=== PATIENT | male | born 1970 | race Caucasian/White ===

== ENCOUNTER 2019-04-14 14:02 | Inpatient (IN) | payer OTHER ==
[2019-04-14 16:53] VITALS: BMI 31.8
--- NOTE | 2019-04-14 17:49 | HP ---
<Linda Mccurdy - Last Filed: 04/14/19 19:31> CIWA Score Nausea/Vomitin Muscle Tremors: 1-None Visible, but [place] Anxiety: 0-No Anxiety, at Ease Agitation: 0-Normal Activity Paroxysmal Sweats: No Perspiration Orientation: 0-Oriented Tacttile Disturbances: 0-None Auditory Disturbances: 0-None Visual Disturbances: 0-None Headache: 2-Mild CIWA-Ar Total Score: 5 - Admission Criteria OASAS Guidelines: Admission for Medically Managed Detox: Requires at least one of the followin. CIWA greater than 12 2. Seizures within the past 24 hours 3. Delirium tremens within the past 24 hours 4. Hallucinations within the past 24 hours 5. Acute intervention needed for co occurring medical disorder 6. Acute intervention needed for co occurring psychiatric disorder 7. Severe withdrawal that cannot be handled at a lower level of care (continued vomiting, continued diarrhea, abnormal vital signs) requiring intravenous medication and/or fluids 8. Admitting History and Physical - Primary Care Physician PCP: none - Admission Chief Complaint: alcohol detox/ rehab History of Present Illness: Pt is a 49 yo man with pmhx of anxiety who presents for inpatient rehab for alcohol missuse. Pt reports he was drinking heavily in a restaurant and EMS got called. The pt states he was breathing very shallow and the restaurant workers became concerned. States he has been drinking heavily for the past 1- 1.5wks, started last Friday. Pt states he is consuming mixed drinks, white wine , and beer. He states hes having ~1L at a time. Pt states he is going into restaurants or bars and drinking alone. Pt states hes currently unemployed and has been working on recovery for the past year but has had some relapses. Pt reports his father/ family live in [place] and send him money. The patient came to [place] in April to be closer to his children and ex-. He has been staying in group home residential recovery programs, most recently at [facility], discharged last Friday and immediately went out drinking. Pt reports he has never had a seizure while withdrawing but he does become weak, tremulous, feverish with chills. He states he has been binging and blacking out this week and is also drinking immediately upon waking. History Source: Patient Limitations to Obtaining History: No Limitations - Smoking History Smoking history: Never smoked - Alcohol/Substance Use Hx Alcohol Use: Yes Admission ROS BHS - HPI Allergies/Adverse Reactions: Allergies Allergy/AdvReac Type Severity Reaction Status Date / Time No Known Allergies Allergy Verified 04/14/19 16:43 - Ebola screening Have you traveled outside of the country in the last 21 days: No (NN) Have you had contact with anyone from an Ebola affected area: No Do you have a fever: No - Review of Systems Constitutional: Chills, Fever EENT: denies: Eye Pain, Ear Pain, Hearing Loss, Throat Pain Respiratory: denies: Cough, Orthopnea, Shortness of Breath Cardiac: denies: Chest Pain, Lightheadedness, Palpitations GI: reports: Nausea, Vomiting (vomited once early this morning). denies: Constipated, Diarrhea : reports: Other (pt reports his urine is very dark in color with a strong smell). denies: Burning Musculoskeletal: reports: Back Pain (low back pain) Integumentary: reports: No Symptoms Reported Neuro: denies: Headache, Numbness, Tingling Endocrine: denies: Excessive Sweating, Flushing Hematology: denies: Blood Clots, Easy Bleeding Psychiatric: reports: Depressed. denies: Agitated, Anxious Other Systems: Reviewed and Negative Patient History - Patient Medical History Hx Anemia: No Hx Asthma: No Hx Chronic Obstructive Pulmonary Disease (COPD): No Hx Cancer: No Hx Cardiac Disorders: No Hx Congestive Heart Failure: No Hx Hypertension: No Hx Hypercholesterolemia: No Hx Pacemaker: No HX Cerebrovascular Accident: No Hx Seizures: No Hx Dementia: No Hx Diabetes: No Hx Gastrointestinal Disorders: No Hx Liver Disease: No Hx Genitourinary Disorders: No Hx Sexually Transmitted Disorders: No Hx Renal Disease (ESRD): No Hx Thyroid Disease: No Hx Human Immunodeficiency Virus (HIV): No (last 03/02 ) Hx Hepatitis C: No Hx Depression: No Hx Suicide Attempt: No Hx Bipolar Disorder: No Hx Schizophrenia: No - Patient Surgical History Past Surgical History: No - PPD History Date: 08/14/15 - Smoking Cessation Smoking history: Never smoked - Substances abused Alcohol Frequency: 1-3 times last 30 days Amount used: 1 to 1 and half liters of vodka/beer/wine Age of first use: 23 Date of last use: 04/13/19 Admission Physical Exam S - Vital Signs Vital Signs: Vital Signs - 24 hr 12/18/19 12/18/19 16:42 17:10 Temperature 98.1 F 98.1 F Pulse Rate 81 81 Respiratory 18 Rate Blood Pressure 130/85 130/85 - Physical General Appearance: Yes: Nourished, Appropriately Dressed, Mild Distress HEENTM: Yes: Within Normal Limits, EOMI, Normocephalic, Pharynx Normal Respiratory: Yes: Within Normal Limits, Lungs Clear, Normal Breath Sounds, No Respiratory Distress, No Accessory Muscle Use Neck: Yes: Within Normal Limits, Supple, Trachea in good position Cardiology: Yes: Within Normal Limits, Regular Rhythm, S1, S2, Tachycardia Abdominal: Yes: Within Normal Limits, Normal Bowel Sounds, Non Tender, Soft Back: Yes: Within Normal Limits, Normal Inspection. No: CVA Tenderness, Vertebral Tenderness Extremities: Yes: Within Normal Limits, Normal Capillary Refill, Tremors (mild tremors with arms outstretched), Erythema (palmar erythema) Neurological: Yes: Within Normal Limits, security public safety officer II-XII NML intact, Fully Oriented, Motor Strength 5/5, Normal Mood/Affect Integumentary: Yes: Within Normal Limits, Normal Color, Dry, Warm Lymphatic: Yes: Within Normal Limits Cleared for Admission S - Detox or Rehab [facility] Level of Care: Medically Managed Breathalyzer - Breathalyzer Breathalyzer: 0.062 Urine Drug Screen - Test Device Lot number: [id number] Expiration date: 11/25/20 - Control Is test valid?: Yes - Results Drug screen NEGATIVE: No Urine drug screen results: BZO-Benzodiazepines Inpatient Rehab Admission - Rehab Decision to Admit Inpatient rehab admission?: Yes - Initial Determination Are CD services needed?: Yes Free of communicable disease: Yes Not in need of hospitalization: Yes - Rehab Admission Criteria Previous failed treatment: Yes Poor recovery environment: Yes Comorbidities: No Lacks judgement: Yes Patient is meeting Inpatient Rehab admission criteria:: Yes <Gustavo Gamble - Last Filed: 04/14/19 20:20> CIWA Score Nausea/Vomitin Muscle Tremors: 1-None Visible, but [place] Anxiety: 2 Agitation: 1-Slight > Activity Paroxysmal Sweats: 1-Minimal Palms Moist Orientation: 0-Oriented Tacttile Disturbances: 1-Very Mild Itch/Numbness Auditory Disturbances: 0-None Visual Disturbances: 0-None Headache: 2-Mild CIWA-Ar Total Score: 10 - Admission Criteria OASAS Guidelines: Admission for Medically Managed Detox: Requires at least one of the followin. CIWA greater than 12 2. Seizures within the past 24 hours 3. Delirium tremens within the past 24 hours 4. Hallucinations within the past 24 hours 5. Acute intervention needed for co occurring medical disorder 6. Acute intervention needed for co occurring psychiatric disorder 7. Severe withdrawal that cannot be handled at a lower level of care (continued vomiting, continued diarrhea, abnormal vital signs) requiring intravenous medication and/or fluids 8. Admitting History and Physical - Admission History Source: Patient Limitations to Obtaining History: No Limitations - Past Medical History Psych: Yes: Anxiety Musculoskeletal: Yes: Chronic low back pain - Past Surgical History Past Surgical History: Yes: None - Smoking History Smoking history: Never smoked - Alcohol/Substance Use Hx Alcohol Use: Yes Number of Drinks Daily: 1 - Social History Usual Living Arrangement: Yes: Alone Admission ROS BHS - HPI Exam Limitations: No Limitations - Ebola screening Have you traveled outside of the country in the last 21 days: No Have you had contact with anyone from an Ebola affected area: No Have you been sick,other than usual withdrawal symptoms: No Do you have a fever: No - Review of Systems Other Systems: Reviewed and Negative Patient History - Patient Surgical History Past Surgical History: No - PPD History Previous Implant?: Yes Implanted On Prior [facility] Admission?: No PPD to be Administered?: Yes - Reproductive History Patient is a Female of Child Bearing Age (11 -55 yrs old): No - Smoking Cessation Smoking history: Never smoked - Substance & Tx. History Hx Alcohol Use: Yes Hx Substance Use: No Substance Use Type: Alcohol Hx Substance Use Treatment: Yes - Substances abused Alcohol Substance route: Oral Frequency: Daily Admission Physical Exam S - Vital Signs Vital Signs: Vital Signs - 24 hr 04/14/19 04/14/19 16:42 17:10 Temperature 98.1 F 98.1 F Pulse Rate 81 81 Respiratory 18 Rate Blood Pressure 130/85 130/85 - Physical Musculoskeletal: Yes: Muscle Pain - Diagnostic (1) Alcohol dependence with uncomplicated withdrawal Current Visit: Yes Status: Chronic (2) Depression Current Visit: Yes Status: Chronic Qualifiers: Major depression episode severity: mild (3) Syncope Current Visit: No Status: Acute Cleared for Admission BHS - Detox or Rehab [facility] Level of Care: Medically Managed
[2019-04-14] MEDS ORDERED: MAGNESIUM CITRATE 300 ML BOTTLE PO PRN (18:26)
[2019-04-14] MEDS ORDERED: METHOCARBAMOL 500 MG TABLET PO PRN (18:26)
[2019-04-14] MEDS ORDERED: MAGNESIUM HYDROX 2400MG/30ML ORAL SUSPENSION 30 ML CUP PO PRN (18:26)
[2019-04-14] MEDS ORDERED: IBUPROFEN 400 MG TABLET (FP) PO PRN (18:26)
[2019-04-14] MEDS ORDERED: hydrOXYzine PAMOATE 25 MG CAPSULE (FP) PO PRN (18:26)
[2019-04-14] MEDS ORDERED: BISMUTH SUBSALICYLATE 524 MG/30 ML UD PO PRN (18:26)
[2019-04-14] MEDS ORDERED: ACETAMINOPHEN 325 MG TABLET (FP) PO PRN ×2 (18:26)
[2019-04-14] MEDS ORDERED: MELATONIN 5 MG TABLETS PO PRN (18:26)
[2019-04-14] MEDS ORDERED: MENTHOL/PHENOL 1 EACH UD MM PRN (18:26)
[2019-04-14] MEDS ORDERED: MAG HYDROX/AL HYDROX/SIMETH 30 ML UNIT-DOSE CUP PO PRN (18:26)
[2019-04-14] MEDS: chlordiazePOXIDE HCL 10 MG CAPSULE PO PRN (19:23)
--- NOTE | 2019-04-14 20:22 | PN ---
S Progress Note Note: I have examined and evaluated this pt ,; case has been discussed and reviewed with the pgy1. I agree with her findingds and treatment plan.
[2019-04-14] MEDS ORDERED: GABAPENTIN 300 MG CAPSULE (FP) PO SCH (22:00)
[2019-04-14] MEDS: THIAMINE HCL 100 MG TABLET (FP) PO SCH (22:37)
[2019-04-14] MEDS: chlordiazePOXIDE HCL 25 MG CAPSULE PO SCH (22:37)
[2019-04-15] MEDS: chlordiazePOXIDE HCL 25 MG CAPSULE PO SCH ×3 (06:46→22:05)
[2019-04-15 09:50] LABS: HEMATOCRIT 41.5 % (35.4-49); HEMOGLOBIN 13.9 GM/dL (11.7-16.9); MCH 29.8 pg (25.7-33.7); MCHC 33.5 g/dl (32.0-35.9); MEAN PLT VOLUME 8.5 fl (7.5-11.1); PLATELET COUNT 267 K/MM3 (134-434); RBC 4.66 M/mm3 (4.00-5.60); WHITE BLOOD COUNT 4.6 K/mm3 (4.0-10.0)
[2019-04-15] MEDS: PRENATAL VITAMINS W/ FOLIC ACID TABLET (FP) PO SCH (09:50)
[2019-04-15 10:05] LABS: ALBUMIN 3.8 g/dl (3.4-5.0); BILIRUBIN,TOTAL 1.4 mg/dL (0.2-1); BLOOD UREA NITROGEN 9.8 mg/dL (7-18); CALCIUM 8.6 mg/dL (8.5-10.1); CREATININE 0.8 mg/dL (0.55-1.3); POTASSIUM 4.2 mmol/L (3.5-5.1)
--- NOTE | 2019-04-15 11:22 | PN ---
[facility] CIWA - CIWA Score Nausea/Vomitin-Mild Nausea/No Vomiting Muscle Tremors: 2 Anxiety: 3 Agitation: 3 Paroxysmal Sweats: No Perspiration Orientation: 0-Oriented Tacttile Disturbances: 1-Very Mild Itch/Numbness Auditory Disturbances: 0-None Visual Disturbances: 0-None Headache: 1-Very Mild CIWA-Ar Total Score: 11 S Progress Note (SOAP) Subjective: alert,irritable,anxious,interrupted sleep,pain in the body,nausea Objective: 04/15/19 11:24 Vital Signs Temperature 97.7 F 04/15/19 09:46 Pulse Rate 99 H 04/15/19 09:46 Respiratory Rate 18 04/15/19 09:46 Blood Pressure 156/93 04/15/19 09:46 O2 Sat by Pulse Oximetry (%) Laboratory Last Values WBC 4.6 K/mm3 (4.0-10.0) 04/15/19 08:00 RBC 4.66 M/mm3 (4.00-5.60) 04/15/19 08:00 Hgb 13.9 GM/dL (11.7-16.9) 04/15/19 08:00 Hct 41.5 % (35.4-49) 04/15/19 08:00 MCV 89.0 fl (80-96) 04/15/19 08:00 MCH 29.8 pg (25.7-33.7) 04/15/19 08:00 MCHC 33.5 g/dl (32.0-35.9) 04/15/19 08:00 RDW 15.0 % (11.9-15.9) D 04/15/19 08:00 Plt Count 267 K/MM3 (134-434) 04/15/19 08:00 MPV 8.5 fl (7.5-11.1) 04/15/19 08:00 Sodium 139 mmol/L (136-145) 04/15/19 08:00 Potassium 4.2 mmol/L (3.5-5.1) 04/15/19 08:00 Chloride 103 mmol/L (98-107) 04/15/19 08:00 Carbon Dioxide 30 mmol/L (21-32) 04/15/19 08:00 Anion Gap 6 MMOL/L (8-16) L 04/15/19 08:00 BUN 9.8 mg/dL (7-18) 04/15/19 08:00 Creatinine 0.8 mg/dL (0.55-1.3) 04/15/19 08:00 Est GFR (CKD-EPI)AfAm 123.29 04/15/19 08:00 Est GFR (CKD-EPI)NonAf 106.38 04/15/19 08:00 Random Glucose 86 mg/dL (74-106) 04/15/19 08:00 Calcium 8.6 mg/dL (8.5-10.1) 04/15/19 08:00 Total Bilirubin 1.4 mg/dL (0.2-1) H 04/15/19 08:00 AST 34 U/L (15-37) 04/15/19 08:00 ALT 47 U/L (13-61) 04/15/19 08:00 Alkaline Phosphatase 60 U/L (45-117) 04/15/19 08:00 Total Protein 7.0 g/dl (6.4-8.2) 04/15/19 08:00 Albumin 3.8 g/dl (3.4-5.0) 04/15/19 08:00 04/15/19 11:25 rpr pending Assessment: 04/15/19 11:25 withdrawal symptom Plan: continue detox librium regimen,patient stated he has been on gabapentine 600 mgs po tid last taken 10 days ago,unable to verify the dose,agrre to start gabapentin 300 mgs po tid
[2019-04-15] MEDS: GABAPENTIN 300 MG CAPSULE (FP) PO SCH ×2 (14:26→22:05)
[2019-04-15] MEDS: THIAMINE HCL 100 MG TABLET (FP) PO SCH (22:05)
[2019-04-16] MEDS: chlordiazePOXIDE 5 MG CAPSULE PO SCH ×3 (06:28→21:55)
[2019-04-16] MEDS: GABAPENTIN 300 MG CAPSULE (FP) PO SCH ×3 (06:28→22:15)
[2019-04-16] MEDS: PRENATAL VITAMINS W/ FOLIC ACID TABLET (FP) PO SCH (10:19)
--- NOTE | 2019-04-16 11:23 | PN ---
S CIWA - CIWA Score Nausea/Vomitin-No Nausea/No Vomiting Muscle Tremors: 3 Anxiety: 2 Agitation: 3 Paroxysmal Sweats: 2 Orientation: 0-Oriented Tacttile Disturbances: 0-None Auditory Disturbances: 0-None Visual Disturbances: 0-None Headache: 0-None Present CIWA-Ar Total Score: 10 BHS Progress Note (SOAP) Subjective: feeling a bit better shakes sweats Objective: 04/16/19 11:22 Vital Signs Temperature 96.9 F L 04/16/19 09:35 Pulse Rate 95 H 04/16/19 09:35 Respiratory Rate 18 04/16/19 09:35 Blood Pressure 148/89 04/16/19 09:35 O2 Sat by Pulse Oximetry (%) Laboratory Tests 04/15/19 04/15/19 04/15/19 08:00 08:00 08:00 WBC 4.6 RBC 4.66 Hgb 13.9 Hct 41.5 MCV 89.0 MCH 29.8 MCHC 33.5 RDW 15.0 D Plt Count 267 MPV 8.5 Sodium 139 Potassium 4.2 Chloride 103 Carbon Dioxide 30 Anion Gap 6 L BUN 9.8 Creatinine 0.8 Est GFR (CKD-EPI)AfAm 123.29 Est GFR (CKD-EPI)NonAf 106.38 Random Glucose 86 Calcium 8.6 Total Bilirubin 1.4 H AST 34 ALT 47 Alkaline Phosphatase 60 Total Protein 7.0 Albumin 3.8 RPR Titer Nonreactive aaox3 ambulating no acute distress Assessment: 04/16/19 11:23 withdrawals Plan: continue detox increase fluids
[2019-04-16] MEDS: chlordiazePOXIDE HCL 10 MG CAPSULE PO PRN (15:12)
[2019-04-16] MEDS: THIAMINE HCL 100 MG TABLET (FP) PO SCH (22:15)
[2019-04-17] MEDS ORDERED: chlordiazePOXIDE HCL 10 MG CAPSULE PO PRN
[2019-04-17] MEDS: chlordiazePOXIDE HCL 10 MG CAPSULE PO SCH ×3 (06:52→22:33)
[2019-04-17] MEDS: GABAPENTIN 300 MG CAPSULE (FP) PO SCH ×2 (06:52→13:42)
[2019-04-17] MEDS: PRENATAL VITAMINS W/ FOLIC ACID TABLET (FP) PO SCH (10:33)
--- NOTE | 2019-04-17 14:07 | PN ---
S CIWA - CIWA Score Nausea/Vomitin Muscle Tremors: 4-Moderate,w/Arms Extend Anxiety: 4-Mod. Anxious/Guarded Agitation: 4-Moderately Restless Paroxysmal Sweats: 1-Minimal Palms Moist Orientation: 0-Oriented Tacttile Disturbances: 0-None Auditory Disturbances: 0-None Visual Disturbances: 0-None Headache: 0-None Present CIWA-Ar Total Score: 15 BHS Progress Note (SOAP) Subjective: here for alcohol detox. pt states he feels anxiety- wants to see MH- was on neurotin 1800mg/day- now getting 900mg/day O: Vital Signs - 24 hr 04/16/19 04/16/19 04/16/19 14:04 18:17 20:57 Temperature 97.0 F L 97.2 F L 97.3 F L Pulse Rate 91 H 93 H 85 Respiratory 18 18 18 Rate Blood Pressure 143/95 145/85 133/88 04/17/19 04/17/19 04/17/19 00:30 03:30 07:17 Temperature 97.5 F L Pulse Rate 76 Respiratory 18 18 18 Rate Blood Pressure 128/75 04/17/19 09:47 Temperature 97.1 F L Pulse Rate 85 Respiratory 18 Rate Blood Pressure 140/96 Laboratory Tests 04/15/19 04/15/19 04/15/19 08:00 08:00 08:00 WBC 4.6 RBC 4.66 Hgb 13.9 Hct 41.5 MCV 89.0 MCH 29.8 MCHC 33.5 RDW 15.0 D Plt Count 267 MPV 8.5 Sodium 139 Potassium 4.2 Chloride 103 Carbon Dioxide 30 Anion Gap 6 L BUN 9.8 Creatinine 0.8 Est GFR (CKD-EPI)AfAm 123.29 Est GFR (CKD-EPI)NonAf 106.38 Random Glucose 86 Calcium 8.6 Total Bilirubin 1.4 H AST 34 ALT 47 Alkaline Phosphatase 60 Total Protein 7.0 Albumin 3.8 RPR Titer Nonreactive a/p: AUD- continue alcohol detox anxiety- pt was on neurontin 600mg TID, will increase from 300mg TID to 400mg TID- would like to be seen by for treatment of OCD d/c tomorrow- pt would like to go to rehab
[2019-04-17] MEDS: GABAPENTIN 400 MG CAPSULE (FP) PO SCH ×2 (14:52→22:33)
[2019-04-17] MEDS: THIAMINE HCL 100 MG TABLET (FP) PO SCH (22:33)
[2019-04-18] MEDS ORDERED: chlordiazePOXIDE HCL 10 MG CAPSULE PO ONE (05:00)
[2019-04-18] MEDS: GABAPENTIN 400 MG CAPSULE (FP) PO SCH (06:47)
--- NOTE | 2019-04-18 08:38 | CONSULT ---
[facility] Psychiatric Consult - Data Date of interview: 04/18/19 Admission source: [facility] Identifying data: Patient is a 49 year old male, , father of two, unemployed, homeless, and is supported by medicaid benefits. This is one of multiple admissions for patient. Patient admitted to for alcohol dependence. Substance Abuse History: Smoking Cessation. Smoking history: Never smoked. - Substances abused. Alcohol. Frequency: 1-3 times last 30 days. Amount used : 1 to 1 and half liters of vodka/beer/wine. Age of first use: 23. Date of last use: 04/13/19 Medical History: denies. Psychiatric History: Mr. Silverio reports history of multiple psychiatric hospitalizations secondary to alcohol intoxication after reporting suicidal thoughts ( [facility]). Patient also reports multiple admissions to [facility]abs [facility], most recently at [facility] two weeks ago. States the only psychotropic medications he receives when admitted to rehab facilities is gabapentin 600mg TID for his anxiety. Patient denies history of suicide attempt. At present he reports feeling anxious. Physical/Sexual Abuse/Trauma History: denies. Mental Status Exam - Mental Status Exam Alert and Oriented to: Time, Place, Person Cognitive Function: Good Patient Appearance: Well Groomed Mood: Withdrawn Affect: Appropriate Patient Behavior: Appropriate, Cooperative Speech Pattern: Appropriate Voice Loudness: Normal Thought Process: Goal Oriented Thought Disorder: Not Present Hallucinations: Denies Suicidal Ideation: Denies Homicidal Ideation: Denies Insight/Judgement: Poor Sleep: Fair Appetite: Fair Muscle strength/Tone: Normal Gait/Station: Normal Psychiatric Findings - Problem List ([place] 1, 2,3) (1) Alcohol dependence with uncomplicated withdrawal Current Visit: Yes Status: Acute (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 Rehab in progress. Will order Gabapentin 600mg TID. Benefits and side effects discussed. Verbal consent given.
[2019-04-18] MEDS: PRENATAL VITAMINS W/ FOLIC ACID TABLET (FP) PO SCH (10:36)
--- NOTE | 2019-04-18 12:00 | PN ---
S CIWA - CIWA Score Nausea/Vomitin-No Nausea/No Vomiting Muscle Tremors: None Anxiety: 4-Mod. Anxious/Guarded Agitation: 0-Normal Activity Paroxysmal Sweats: 2 Orientation: 0-Oriented Tacttile Disturbances: 0-None Auditory Disturbances: 0-None Visual Disturbances: 0-None Headache: 0-None Present CIWA-Ar Total Score: 6 BHS Progress Note (SOAP) Subjective: c/o anxiety and mild sweats. Objective: 04/18/19 11:56 Vital Signs 04/18/19 04/18/19 06:11 10:06 Temperature 97.5 F L 97.7 F Pulse Rate 67 90 Respiratory 18 18 Rate Blood Pressure 114/73 137/89 Laboratory Last Values WBC 4.6 K/mm3 (4.0-10.0) 04/15/19 08:00 RBC 4.66 M/mm3 (4.00-5.60) 04/15/19 08:00 Hgb 13.9 GM/dL (11.7-16.9) 04/15/19 08:00 Hct 41.5 % (35.4-49) 04/15/19 08:00 MCV 89.0 fl (80-96) 04/15/19 08:00 MCH 29.8 pg (25.7-33.7) 04/15/19 08:00 MCHC 33.5 g/dl (32.0-35.9) 04/15/19 08:00 RDW 15.0 % (11.9-15.9) D 04/15/19 08:00 Plt Count 267 K/MM3 (134-434) 04/15/19 08:00 MPV 8.5 fl (7.5-11.1) 04/15/19 08:00 Sodium 139 mmol/L (136-145) 04/15/19 08:00 Potassium 4.2 mmol/L (3.5-5.1) 04/15/19 08:00 Chloride 103 mmol/L (98-107) 04/15/19 08:00 Carbon Dioxide 30 mmol/L (21-32) 04/15/19 08:00 Anion Gap 6 MMOL/L (8-16) L 04/15/19 08:00 BUN 9.8 mg/dL (7-18) 04/15/19 08:00 Creatinine 0.8 mg/dL (0.55-1.3) 04/15/19 08:00 Est GFR (CKD-EPI)AfAm 123.29 04/15/19 08:00 Est GFR (CKD-EPI)NonAf 106.38 04/15/19 08:00 Random Glucose 86 mg/dL (74-106) 04/15/19 08:00 Calcium 8.6 mg/dL (8.5-10.1) 04/15/19 08:00 Total Bilirubin 1.4 mg/dL (0.2-1) H 04/15/19 08:00 AST 34 U/L (15-37) 04/15/19 08:00 ALT 47 U/L (13-61) 04/15/19 08:00 Alkaline Phosphatase 60 U/L (45-117) 04/15/19 08:00 Total Protein 7.0 g/dl (6.4-8.2) 04/15/19 08:00 Albumin 3.8 g/dl (3.4-5.0) 04/15/19 08:00 RPR Titer Nonreactive (NONREACTIVE) 04/15/19 08:00 Labs noted. Assessment: 04/18/19 11:56 AOX3, in no acute respiratory distress. Full ROM, ambulating in the unit. Withdrawal symptoms Pt has completed his detox protocol but still c/o anxiousness. harmonic analyst evaluated pt and started him on gabapentin. (refer to harmonic analyst's notes). Pt is to be discharged to rehab but will keep him one more day to be managed medically and be discharged to the rehab tomorrow. 04/18/19 12:01 Plan: continue vistaril po prn/other prn medications. Start gabapentin as recommended by research neuropsychologist.
[2019-04-18] MEDS: GABAPENTIN 300 MG CAPSULE (FP) PO SCH ×2 (13:37→22:34)
[2019-04-18] MEDS: THIAMINE HCL 100 MG TABLET (FP) PO SCH (22:35)
[2019-04-19] MEDS: GABAPENTIN 300 MG CAPSULE (FP) PO SCH ×2 (05:46→14:33)
--- NOTE | 2019-04-19 09:06 | DS ---
[facility] Detox Discharge Summary Admission Date: 04/14/19 Discharge Date: 04/19/19 - History Present History: Alcohol Dependence - Physical Exam Results Vital Signs: Vital Signs Temperature 97.3 F L 04/19/19 05:25 Pulse Rate 68 04/19/19 05:25 Respiratory Rate 20 04/19/19 05:25 Blood Pressure 106/76 04/19/19 05:25 O2 Sat by Pulse Oximetry (%) Pertinent Admission Physical Exam Findings: Vital Signs Period Temp Pulse Resp BP Sys/[place]ilton Pulse Ox Last 24 Hr 97.3 F-98.1 F 68-97 16- 106-146/76-94 Laboratory Tests 04/15/19 04/15/19 04/15/19 08:00 08:00 08:00 WBC 4.6 RBC 4.66 Hgb 13.9 Hct 41.5 MCV 89.0 MCH 29.8 MCHC 33.5 RDW 15.0 D Plt Count 267 MPV 8.5 Sodium 139 Potassium 4.2 Chloride 103 Carbon Dioxide 30 Anion Gap 6 L BUN 9.8 Creatinine 0.8 Est GFR (CKD-EPI)AfAm 123.29 Est GFR (CKD-EPI)NonAf 106.38 Random Glucose 86 Calcium 8.6 Total Bilirubin 1.4 H AST 34 ALT 47 Alkaline Phosphatase 60 Total Protein 7.0 Albumin 3.8 RPR Titer Nonreactive aaox3 ambulating no acute distress - Treatment Hospital Course: Detox Protocol Followed, Detoxed Safely, Responded well, Discharged Condition Good, Rehab Referral Accepted Patient has Accepted a Rehab Referral to: pt referred to [facility] inpatient rehab - Medication Discharge Medications: Ambulatory Orders Gabapentin 1 tablet PO TID 04/14/19 - Diagnosis (1) Alcohol dependence with uncomplicated withdrawal Current Visit: Yes Status: Chronic (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
[2019-04-19] MEDS: PRENATAL VITAMINS W/ FOLIC ACID TABLET (FP) PO SCH (09:36)
[2019-04-19 13:27] VITALS: BP 133/82; PULSE 110; TEMP 97.9
== END 2019-04-19 14:37 | disposition other institution (70) | DRG 775 ==
LOC: YASAS 14:02 → Y6N 18:48
PROVIDERS: ADMIT Allergy & Immunology; ATTEND Allergy & Immunology
PROC: HZ2ZZZZ Detoxification Services for Substance Abuse Treatment (ICD-10-PCS; principal; 2019-04-14)
DX: F10.230 Alcohol dependence with withdrawal, uncomplicated (principal); F10.280 Alcohol dependence with alcohol-induced anxiety disorder; F10.24 Alcohol dependence with alcohol-induced mood disorder; F10.282 Alcohol dependence with alcohol-induced sleep disorder; R00.0 Tachycardia, unspecified; Z56.0 Unemployment, unspecified
CPT/HCPCS: 36415; 80053; 85027; 86593

== ENCOUNTER 2019-04-19 15:01 | Inpatient (IN) | payer OTHER ==
[2019-04-19] MEDS ORDERED: LOPERAMIDE HCL 2 MG CAPSULE PO PRN (15:42)
[2019-04-19] MEDS ORDERED: MAG HYDROX/AL HYDROX/SIMETH 30 ML UNIT-DOSE CUP PO PRN (15:42)
[2019-04-19] MEDS ORDERED: P-EPHED 60MG/TRIPROLIDI 2.5MG TABLET PO PRN (15:42)
[2019-04-19] MEDS ORDERED: MENTHOL/PHENOL 1 EACH UD MM PRN (15:42)
[2019-04-19] MEDS ORDERED: hydrOXYzine PAMOATE 25 MG CAPSULE (FP) PO PRN (15:42)
[2019-04-19] MEDS ORDERED: MAGNESIUM CITRATE 300 ML BOTTLE PO PRN (15:42)
[2019-04-19] MEDS ORDERED: ACETAMINOPHEN 325 MG TABLET (FP) PO PRN (15:42)
[2019-04-19] MEDS ORDERED: guaiFENesin 200 MG/10 ML 10 ML UNIT-DOSE CUPS PO PRN (15:42)
[2019-04-19] MEDS ORDERED: MAGNESIUM HYDROX 2400MG/30ML ORAL SUSPENSION 30 ML CUP PO PRN (15:42)
--- NOTE | 2019-04-19 15:42 | HP ---
[facility] Rehab Assess/Revision - Admission History Admitted to Rehab from: [facility] Date of Admission to Rehab: 04/19/2019 - Vital signs Vital Signs: Vital Signs Period Temp Pulse Resp BP Sys/Hilton Pulse Ox Last 24 Hr 98.5 F 86 18 119/69 - Findings Detox History & Physical reviewed: Yes Concur with findings: Yes Inpatient Rehab Admission - Rehab Decision to Admit Inpatient rehab admission?: Yes - Initial Determination Are CD services needed?: Yes Free of communicable disease: Yes Not in need of hospitalization: Yes - Rehab Admission Criteria Previous failed treatment: Yes Poor recovery environment: Yes Comorbidities: Yes Lacks judgement: No Patient is meeting Inpatient Rehab admission criteria:: Yes
--- NOTE | 2019-04-19 16:11 | PN ---
[facility] Progress Note Note: Patient transferred to [address] [place], [place] [address]ab for alcohol dependence. Labs reviewed. Will repeat CMP on 04/23/19. Previous admission in 2016 reviewed. Patient has hx of OCD and treated with gabapentin. Vital Signs Temperature 98.5 F 04/19/19 15:09 Pulse Rate 86 04/19/19 15:09 Respiratory Rate 18 04/19/19 15:09 Blood Pressure 119/69 04/19/19 15:09 O2 Sat by Pulse Oximetry (%)
--- NOTE | 2019-04-19 16:57 | CONSULT ---
[facility] Psychiatric Consult - Data Date of interview: 04/19/19 Admission source: [facility] Identifying data: Transition to [address] for this 49 y/o male who sought rehabilitative care after completion of detoxification (alcohol ) at [address] [place] [address]. Patient is , a father of two, homeless, unemployed and supported by relatives. Substance Abuse History: Discussed with the patient. Details in current [facility] report as follows : Smoking history: Never smoked. Substances abused. Alcohol. Frequency: 1-3 times last 30 days. Amount used: 1 to 1 and half liters of vodka/beer/wine. Age of first use: 23. Date of last use: 04/13/19 Medical History: Patient endorses good general health. Psychiatric History: Patient endorses a history of multiple psychiatric hospitalizations ([facility], [facility] in [place], [facility], [facility]). Patient is also known to several detox/rehabs inpatient services [place] [facility] [place]. Admits to the diagnoses of OCD + MDD + Anxiety Disorder. Mr Perez is currently maintained on gabapentin 600 mg/tid. Patient denies history of suicide attempts. Physical/Sexual Abuse/Trauma History: Traumatized by divorce, separation from his children, financial losses, homelessness and severe addiction to alcohol. Additional Comment: Urine drug screen results: BZO-Benzodiazepines. Noted on admission at [facility]. Mental Status Exam - Mental Status Exam Alert and Oriented to: Time, Place, Person Cognitive Function: Good Patient Appearance: Well Groomed (obese) Mood: Nervous, Withdrawn, Hopeful Affect: Mood Congruent, Constricted Patient Behavior: Appropriate, Cooperative Speech Pattern: Clear, Appropriate Voice Loudness: Normal Thought Process: Intact, Goal Oriented Thought Disorder: Not Present Hallucinations: Denies Suicidal Ideation: Denies Insight/Judgement: Fair Sleep: Well Appetite: Good Muscle strength/Tone: Normal Gait/Station: Normal Psychiatric Findings - Problem List ([place] 1, 2,3) (1) Alcohol use disorder Current Visit: Yes Status: Chronic (2) 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 Sleep hygiene. Support. Motivational counseling. AA meetings. MAT services : discussed with the patient. Patient responded that he has tried VALDOVINOS naltrexone in the past (does not wish to resume the drug). Gabapentin 600 mg po tid. Resumed. Side effects/benefits discussed with the patient. Mr Perez agrees with plan of care. Consent (verbal) given to MD. Observation.
[2019-04-19] MEDS: GABAPENTIN 300 MG CAPSULE (FP) PO SCH (21:12)
[2019-04-19] MEDS: THIAMINE HCL 100 MG TABLET (FP) PO SCH (21:12)
[2019-04-19] MEDS ORDERED: MELATONIN 5 MG TABLETS PO PRN (22:00)
[2019-04-20] MEDS: GABAPENTIN 300 MG CAPSULE (FP) PO SCH ×3 (07:37→21:42)
[2019-04-20] MEDS: PRENATAL VITAMINS W/ FOLIC ACID TABLET (FP) PO SCH (10:39)
[2019-04-20] MEDS: THIAMINE HCL 100 MG TABLET (FP) PO SCH (21:42)
[2019-04-21] MEDS: GABAPENTIN 300 MG CAPSULE (FP) PO SCH ×3 (06:20→21:36)
[2019-04-21] MEDS: PRENATAL VITAMINS W/ FOLIC ACID TABLET (FP) PO SCH (10:42)
[2019-04-21] MEDS: THIAMINE HCL 100 MG TABLET (FP) PO SCH (21:36)
[2019-04-22] MEDS: GABAPENTIN 300 MG CAPSULE (FP) PO SCH ×3 (06:10→21:41)
[2019-04-22] MEDS: PRENATAL VITAMINS W/ FOLIC ACID TABLET (FP) PO SCH (10:26)
[2019-04-22] MEDS: THIAMINE HCL 100 MG TABLET (FP) PO SCH (21:41)
[2019-04-23] MEDS: GABAPENTIN 300 MG CAPSULE (FP) PO SCH ×3 (06:05→21:51)
[2019-04-23 10:27] LABS: ALBUMIN 3.5 g/dl (3.4-5.0); BILIRUBIN,TOTAL 0.4 mg/dL (0.2-1); BLOOD UREA NITROGEN 14.2 mg/dL (7-18); CALCIUM 8.6 mg/dL (8.5-10.1); CREATININE 0.9 mg/dL (0.55-1.3); POTASSIUM 4.9 mmol/L (3.5-5.1); TOT PROT 6.5 g/dl (6.4-8.2)
[2019-04-23] MEDS: PRENATAL VITAMINS W/ FOLIC ACID TABLET (FP) PO SCH (10:39)
[2019-04-23] MEDS: THIAMINE HCL 100 MG TABLET (FP) PO SCH (21:51)
[2019-04-24] MEDS: GABAPENTIN 300 MG CAPSULE (FP) PO SCH ×3 (06:17→21:55)
[2019-04-24] MEDS: PRENATAL VITAMINS W/ FOLIC ACID TABLET (FP) PO SCH (10:56)
[2019-04-24] MEDS: THIAMINE HCL 100 MG TABLET (FP) PO SCH (21:55)
[2019-04-25] MEDS: GABAPENTIN 300 MG CAPSULE (FP) PO SCH ×3 (07:22→21:53)
[2019-04-25] MEDS: PRENATAL VITAMINS W/ FOLIC ACID TABLET (FP) PO SCH (10:21)
[2019-04-25] MEDS: THIAMINE HCL 100 MG TABLET (FP) PO SCH (21:53)
[2019-04-26] MEDS: GABAPENTIN 300 MG CAPSULE (FP) PO SCH ×3 (06:47→21:49)
[2019-04-26] MEDS: PRENATAL VITAMINS W/ FOLIC ACID TABLET (FP) PO SCH (10:02)
[2019-04-26] MEDS: THIAMINE HCL 100 MG TABLET (FP) PO SCH (21:49)
[2019-04-27] MEDS: GABAPENTIN 300 MG CAPSULE (FP) PO SCH ×3 (06:32→21:44)
[2019-04-27] MEDS: PRENATAL VITAMINS W/ FOLIC ACID TABLET (FP) PO SCH (10:47)
[2019-04-27] MEDS: THIAMINE HCL 100 MG TABLET (FP) PO SCH (21:44)
[2019-04-28] MEDS: GABAPENTIN 300 MG CAPSULE (FP) PO SCH ×3 (06:26→21:45)
[2019-04-28] MEDS: PRENATAL VITAMINS W/ FOLIC ACID TABLET (FP) PO SCH (10:25)
[2019-04-28] MEDS: THIAMINE HCL 100 MG TABLET (FP) PO SCH (21:46)
[2019-04-29] MEDS: GABAPENTIN 300 MG CAPSULE (FP) PO SCH ×3 (06:17→21:27)
[2019-04-29] MEDS: PRENATAL VITAMINS W/ FOLIC ACID TABLET (FP) PO SCH (10:48)
[2019-04-29] MEDS: THIAMINE HCL 100 MG TABLET (FP) PO SCH (21:28)
[2019-04-30] MEDS: GABAPENTIN 300 MG CAPSULE (FP) PO SCH ×3 (06:25→21:44)
[2019-04-30] MEDS: PRENATAL VITAMINS W/ FOLIC ACID TABLET (FP) PO SCH (10:40)
[2019-04-30] MEDS: IBUPROFEN 400 MG TABLET (FP) PO PRN (12:46)
[2019-04-30] MEDS: THIAMINE HCL 100 MG TABLET (FP) PO SCH (21:44)
[2019-05-01] MEDS: GABAPENTIN 300 MG CAPSULE (FP) PO SCH ×3 (06:03→21:37)
[2019-05-01] MEDS: PRENATAL VITAMINS W/ FOLIC ACID TABLET (FP) PO SCH (11:10)
[2019-05-01] MEDS: IBUPROFEN 400 MG TABLET (FP) PO PRN (19:27)
[2019-05-01] MEDS: THIAMINE HCL 100 MG TABLET (FP) PO SCH (21:37)
[2019-05-02] MEDS: GABAPENTIN 300 MG CAPSULE (FP) PO SCH ×3 (06:21→21:34)
[2019-05-02 07:22] VITALS: BP 111/72; PULSE 77; TEMP 97.3
[2019-05-02] MEDS: PRENATAL VITAMINS W/ FOLIC ACID TABLET (FP) PO SCH (10:23)
[2019-05-02] MEDS: IBUPROFEN 400 MG TABLET (FP) PO PRN (13:19)
[2019-05-02] MEDS: THIAMINE HCL 100 MG TABLET (FP) PO SCH (21:34)
[2019-05-03] MEDS: GABAPENTIN 300 MG CAPSULE (FP) PO SCH (07:50)
--- NOTE | 2019-05-03 09:18 | DS ---
[facility] Rehab Discharge Summary - [facility] Rehab Discharge Summary Admission Date: 04/19/19 Discharge Date: 05/03/19 - History Present History: Alcohol dependence Additional Comments: Pt is a 49 y/o male with a hx of SHANT admitted to rehab and scheduled to discharge today. Pt met with his counselor, Ms Elena Reeder and has bee referred to [facility] where his has been accepted to follow up on 05/04/19. Pt reports he had a PCP in [place] but relocated here to [place]. Pt reports no PCP at this time but stated he will find one as soon as he is situated with housing. Pt states he is open to idea of seeking primary care with [facility] outpt Clinic in [place] when he is ready. Pertinent Past History: PMHx:Denies except Obesity(BMI= 31) Depression/Anxiety/OCD Sleep disorder-r/t alcohol use - Discharge Physical Exam Vital Signs: Vital Signs Temperature 97.3 F L 05/02/19 07:22 Pulse Rate 77 05/02/19 07:22 Respiratory Rate 18 05/03/19 07:31 Blood Pressure 111/72 05/02/19 07:22 O2 Sat by Pulse Oximetry (%) Alert o x 3,communicates appropriately and well groomed,denies s/h/i nad oob ambulating with steady gait Cardiac:s1 s2,rrr lungs:cta,ada. abdomen:soft,+bs,nt,nd extremities/skin:no edema;skin intact. Pertinent Admission Physical Exam Findings: Laboratory Tests 04/23/19 07:40 Sodium 141 Potassium 4.9 Chloride 109 H Carbon Dioxide 30 Anion Gap 2 L BUN 14.2 Creatinine 0.9 Est GFR (CKD-EPI)AfAm 117.47 Est GFR (CKD-EPI)NonAf 101.35 Random Glucose 85 Calcium 8.6 Total Bilirubin 0.4 AST 20 ALT 42 Alkaline Phosphatase 42 L Total Protein 6.5 Albumin 3.5 - Treatment Discharge Condition: Discharge condition good Hospital Course: Rehabilitated safely [facility] aftercare referral accepted - Medication Discharge Medications: Ambulatory Orders Gabapentin 600 mg PO TID #90 tablet 05/03/19 - Medication-Assisted Treatment (MAT) Medication-Assisted Treatment (MAT): No - Discharge Instructions Diet, activity, other medical instructions: Diet:Regular Activity: oob ad rae Other medical instructions:Follow up with [facility] aftercare referral as scheduled. folow up with primary care at [facility] outpatient [facility] within 1-2 weeks after discharge. - Diagnosis (1) Alcohol use disorder Current Visit: Yes Status: Chronic (2) Obesity (BMI 30.0-34.9) Current Visit: Yes Status: Chronic - Follow-up Referral Minutes to complete discharge: 20 - AMA Did Patient Leave Against Medical Advice: No Additional Comments: Pt reports takes Gabapentin for hx of Anxiety and OCD from his doctor in [place] but does not have one at the moment and gets it when he goes to treatment centers-detox and rehabs.
--- NOTE | 2019-05-03 09:40 | PN ---
[facility] Progress Note Note: Patient is discharge today. Script for 30 days supply of Gabapentin 600 mg/tid are electronically transmitted to [facility] at [address] [place], [place] [id number]
[2019-05-03] MEDS: PRENATAL VITAMINS W/ FOLIC ACID TABLET (FP) PO SCH (10:17)
== END 2019-05-03 10:50 | disposition home or self-care (01) | DRG 772 ==
LOC: YASAS 15:01 → Y5N 15:02
PROVIDERS: ADMIT Neuromusculoskeletal Medicine & OMM; ATTEND Neuromusculoskeletal Medicine & OMM
PROC: HZ42ZZZ Group Counseling for Substance Abuse Treatment, Cognitive-Behavioral (ICD-10-PCS; principal; 2019-04-19)
DX: F10.20 Alcohol dependence, uncomplicated (principal); F10.24 Alcohol dependence with alcohol-induced mood disorder; F41.9 Anxiety disorder, unspecified; E66.9 Obesity, unspecified; Z68.31 Body mass index [BMI] 31.0-31.9, adult
CPT/HCPCS: 36415; 80053

== ENCOUNTER 2019-06-12 11:31 | Inpatient (IN) | payer OTHER ==
--- NOTE | 2019-06-12 13:03 | BHS.RME ---
Substance Use & Tx History - Substance Use History Alcohol Substance amount: 1 litre of vodka/2 of 16 ozs Frequency of use: Daily Substance route: Oral Date of Last Use: 06/11/19 - Last Treatment Date of last treatment: 05/2018 Where was last treatment: Detox ([facility]) Physical/Psych/Mental Status - Behavior General Behavior: Increased activity (restlessness, agitation) Eye Contact: Normal - Cooperativeness Cooperativeness: Cooperative - Thinking Thought Processes: Logical Thought content: Future oriented - Physical Health Problems Is patient presently having any pain?: No Does patient presently have any injuries (include location): No Does patient currently have a fever: No CIWA Nausea/Vomitin Muscle Tremors: 3 Anxiety: 2 Agitation: 2 Paroxysmal Sweats: 1-Minimal Palms Moist Orientation: 0-Oriented Tacttile Disturbances: 1-Very Mild Itch/Numbness Auditory Disturbances: 0-None Visual Disturbances: 0-None Headache: 2-Mild (this 49 years old with alcohol dependence,seeking detox,last seen [facility] last night,syncope,no seizure for inpatient detox) CIWA-Ar Total Score: 13
[2019-06-12 16:00] VITALS: BMI 31.9
--- NOTE | 2019-06-12 16:40 | HP ---
CIWA Score Nausea/Vomitin Muscle Tremors: 3 Anxiety: 2 Agitation: 2 Paroxysmal Sweats: 1-Minimal Palms Moist Orientation: 0-Oriented Tacttile Disturbances: 1-Very Mild Itch/Numbness Auditory Disturbances: 0-None Visual Disturbances: 0-None Headache: 2-Mild (this 49 years old with alcohol dependence,seeking detox,last seen [facility] last night,syncope,no seizure for inpatient detox) CIWA-Ar Total Score: 13 - Admission Criteria OASAS Guidelines: Admission for Medically Managed Detox: Requires at least one of the followin. CIWA greater than 12 2. Seizures within the past 24 hours 3. Delirium tremens within the past 24 hours 4. Hallucinations within the past 24 hours 5. Acute intervention needed for co occurring medical disorder 6. Acute intervention needed for co occurring psychiatric disorder 7. Severe withdrawal that cannot be handled at a lower level of care (continued vomiting, continued diarrhea, abnormal vital signs) requiring intravenous medication and/or fluids 8. Admitting History and Physical - Admission Chief Complaint: i nee dhelp to stop drinking alcohol History of Present Illness: this 49 years old male with alcohol dependence,seeking detox,multiple admissions in detox,seen in [facility] last night History Source: Patient Limitations to Obtaining History: No Limitations - Past Medical History Psych: Yes: Anxiety Musculoskeletal: Yes: Chronic low back pain - Past Surgical History Past Surgical History: Yes: None - Smoking History Smoking history: Never smoked - Alcohol/Substance Use Hx Alcohol Use: Yes Number of Drinks Daily: 1 - Social History Usual Living Arrangement: Yes: Other (homeless) Occupation: unemployed History of Recent Travel: No Admission [facility] Chief Complaint: i need help to stop drinking alcohol Allergies/Adverse Reactions: Allergies Allergy/AdvReac Type Severity Reaction Status Date / Time No Known Allergies Allergy Verified 04/19/19 15:18 History of Present Illness: this 49 yeas old male with alcohol dependence seeking detox,withdrawal symptom, multiple admissions in detox,syncope,no seizure,seen in [facility] last night longest sobriiety 822 days ocd,anxiety taking neurontin Exam Limitations: No Limitations - Ebola screening Have you traveled outside of the country in the last 21 days: Yes Have you had contact with anyone from an Ebola affected area: No Have you been sick,other than usual withdrawal symptoms: No Do you have a fever: No - Review of Systems Constitutional: Malaise, Night Sweats EENT: reports: Tearing, Nose Congestion Respiratory: reports: No Symptoms reported Cardiac: reports: No Symptoms Reported GI: reports: Nausea, Poor Appetite, Vomiting, Abdominal cramping : reports: No Symptoms Reported Musculoskeletal: reports: Back Pain, Muscle Pain Integumentary: reports: Dryness Neuro: reports: Headache, Tremors Endocrine: reports: No Symptoms Reported Hematology: reports: No Symptoms Reported Psychiatric: reports: No Sypmtoms Reported, Judgement Intact, Mood/Affect Appropiate, Orientated x3, Agitated (ocd) Patient History - Patient Medical History Hx Anemia: No Hx Asthma: No Hx Chronic Obstructive Pulmonary Disease (COPD): No Hx Cancer: No Hx Cardiac Disorders: No Hx Congestive Heart Failure: No Hx Hypertension: No Hx Hypercholesterolemia: No Hx Pacemaker: No HX Cerebrovascular Accident: No Hx Seizures: No Hx Dementia: No Hx Diabetes: No Hx Gastrointestinal Disorders: No Hx Liver Disease: No Hx Genitourinary Disorders: No Hx Sexually Transmitted Disorders: No Hx Renal Disease (ESRD): No Hx Thyroid Disease: No Hx Human Immunodeficiency Virus (HIV): No (last 2019 negative) Hx Hepatitis C: No Hx Depression: Yes (ocd) Hx Suicide Attempt: No Hx Bipolar Disorder: No Hx Schizophrenia: No Other Medical History: no suicidal,no homicidal - Patient Surgical History Past Surgical History: No Hx Neurologic Surgery: No Hx Cataract Extraction: No Hx Cardiac Surgery: No Hx Lung Surgery: No Hx Breast Surgery: No Hx Breast Biopsy: No Hx Abdominal Surgery: No Hx Appendectomy: No Hx Cholecystectomy: No Hx Genitourinary Surgery: No Hx Section: No Hx Orthopedic Surgery: No Anesthesia Reaction: No - PPD History Previous Implant?: Yes Documented Results: Negative w/proof Implanted On Prior R Admission?: Yes Date: 04/16/19 Results: 0 mm. PPD to be Administered?: No - Smoking Cessation Smoking history: Never smoked - Substance & Tx. History Hx Alcohol Use: Yes Hx Substance Use: No Hx Substance Use Treatment: Yes ([facility] in 03/2019) - Substances abused Alcohol Substance route: Oral Frequency: Daily Amount used: 1 litre of vodka Age of first use: 17 Date of last use: 06/11/19 Admission Physical Exam BHS - Vital Signs Vital Signs: Vital Signs - 24 hr 06/12/19 15:58 Temperature 97.4 F L Pulse Rate 116 H Respiratory 20 Rate Blood Pressure 146/98 - Physical General Appearance: Yes: Moderate Distress, Tremorous, Irritable, Anxious HEENTM: Yes: Normal ENT Inspection, ABDIFATAH, Pharynx Normal Respiratory: Yes: Lungs Clear, Normal Breath Sounds, No Respiratory Distress Neck: Yes: Within Normal Limits, Supple, Trachea in good position Breast: Yes: Within Normal Limits Cardiology: Yes: Within Normal Limits, Regular Rhythm, Regular Rate, S1, S2 Abdominal: Yes: Within Normal Limits, Normal Bowel Sounds, Flat, Soft Genitourinary: Yes: Within Normal Limits Back: Yes: Muscle Spasm Musculoskeletal: Yes: Back pain, Muscle Pain Extremities: Yes: Tremors 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 NML intact, Fully Oriented, Alert, Motor Strength 5/5 Integumentary: Yes: Dry Lymphatic: Yes: Within Normal Limits - Diagnostic (1) Syncope Current Visit: No Status: Acute (2) Alcohol dependence with uncomplicated withdrawal Current Visit: No Status: Chronic (3) Alcohol intoxication Current Visit: Yes Status: Acute (4) Anxiety and depression Current Visit: Yes Status: Acute (5) OCD (obsessive compulsive disorder) Current Visit: Yes Status: Acute Cleared for Admission [facility] - Detox or Rehab [facility] Level of Care: Medically Managed Detox Regimen/Protocol: Librium Breathalyzer - Breathalyzer Breathalyzer: 0.154 Urine Drug Screen - Test Device Lot number: [id number] Expiration date: 03/22/21 - Control Is test valid?: Yes - Results Drug screen NEGATIVE: Yes Urine drug screen results: BZO-Benzodiazepines Inpatient Rehab Admission - Rehab Decision to Admit Inpatient rehab admission?: No
[2019-06-12] MEDS ORDERED: IBUPROFEN 400 MG TABLET (FP) PO PRN (16:47)
[2019-06-12] MEDS ORDERED: MAGNESIUM CITRATE 300 ML BOTTLE PO PRN (16:47)
[2019-06-12] MEDS ORDERED: METHOCARBAMOL 500 MG TABLET PO PRN (16:47)
[2019-06-12] MEDS ORDERED: chlordiazePOXIDE HCL 25 MG CAPSULE PO PRN (16:47)
[2019-06-12] MEDS ORDERED: MELATONIN 5 MG TABLETS PO PRN (16:47)
[2019-06-12] MEDS ORDERED: ACETAMINOPHEN 325 MG TABLET (FP) PO PRN ×2 (16:47)
[2019-06-12] MEDS ORDERED: MENTHOL/PHENOL 1 EACH UD MM PRN (16:47)
[2019-06-12] MEDS ORDERED: MAG HYDROX/AL HYDROX/SIMETH 30 ML UNIT-DOSE CUP PO PRN (16:47)
[2019-06-12] MEDS ORDERED: hydrOXYzine PAMOATE 25 MG CAPSULE (FP) PO PRN (16:47)
[2019-06-12] MEDS ORDERED: MAGNESIUM HYDROX 2400MG/30ML ORAL SUSPENSION 30 ML CUP PO PRN (16:47)
[2019-06-12] MEDS ORDERED: cloNIDine HCL 0.1 MG TABLET PO PRN (18:40)
[2019-06-12] MEDS: THIAMINE HCL 100 MG TABLET (FP) PO SCH (22:37)
[2019-06-12] MEDS: chlordiazePOXIDE HCL 25 MG CAPSULE PO SCH (22:37)
[2019-06-13] MEDS: chlordiazePOXIDE HCL 25 MG CAPSULE PO SCH ×4 (06:26→22:49)
--- NOTE | 2019-06-13 08:29 | CONSULT ---
[facility] Psychiatric Consult - Data Date of interview: 06/13/19 Admission source: [facility] Identifying data: Patient is a 49 year old male, father of two, unemployed, homeless, and is not currently receiving financial assistance. This is one of multiple admissions for patient. Patient admitted to for alcohol dependence. Substance Abuse History: - Substance & Tx. History. Hx Alcohol Use: Yes. Hx Substance Use: No. Hx Substance Use Treatment: Yes ([facility] in 03/2019). - Substances abused. Alcohol. Substance route: Oral. Frequency: Daily. Amount used: 1 litre of vodka. Age of first use: 17. Date of last use: Medical History: Chronic low back pain Psychiatric History: Patient reports history of multiple psychiatric hospitalizations ( [facility] in [place], [facility], [facility]) and most recently last year as [facility]. Diagnosis of MDD + OCD + Anxiety disorder. Mr. Perez most recently received outpatient psychiatric care at [facility] in 2018. Patient seen by Dr. Matthews in [facility] of 2018 and was prescribed gabapentin 600mg TID. Patient also recently completed rehab at [facility] (last month) and reports being prescribed gabapentin 600mg TID. Patient denies history of suicide. Physical/Sexual Abuse/Trauma History: denies. Mental Status Exam - Mental Status Exam Alert and Oriented to: Time, Place, Person Cognitive Function: Good Patient Appearance: Well Groomed Mood: Withdrawn Affect: Mood Congruent Patient Behavior: Fatigued, Cooperative Speech Pattern: Appropriate Voice Loudness: Normal Thought Process: Intact, Goal Oriented Thought Disorder: Not Present Hallucinations: Denies Suicidal Ideation: Denies Homicidal Ideation: Denies Insight/Judgement: Poor Sleep: Fair Appetite: Fair Muscle strength/Tone: Normal Gait/Station: Normal Psychiatric Findings - Problem List ([place] 1, 2,3) (1) Alcohol dependence with uncomplicated withdrawal Current Visit: Yes Status: Acute (2) Alcohol use disorder Current Visit: Yes Status: Chronic (3) Anxiety disorder Current Visit: Yes Status: Chronic (4) Alcohol-induced mood disorder Current Visit: Yes Status: Chronic - Initial Treatment Plan Initial Treatment Plan: Psychoeducation provided. Detoxification in progress. Will order gabapentin 300mg TID (reduced dose as per patient's request ) as patient reports feeling tired from the librium. Benefits and side effects discussed. Verbal consent given.
[2019-06-13] MEDS: PRENATAL VITAMINS W/ FOLIC ACID TABLET (FP) PO SCH (10:38)
[2019-06-13 11:43] LABS: HEMATOCRIT 43.1 % (35.4-49); HEMOGLOBIN 14.8 GM/dL (11.7-16.9); MCH 30.8 pg (25.7-33.7); MCHC 34.4 g/dl (32.0-35.9); MEAN CELL VOLUME 89.6 fl (80-96); MEAN PLT VOLUME 8.8 fl (7.5-11.1); PLATELET COUNT 239 K/MM3 (134-434); RBC 4.81 M/mm3 (4.00-5.60); RDW 15.7 % (11.9-15.9); WHITE BLOOD COUNT 6.8 K/mm3 (4.0-10.0)
[2019-06-13 11:52] LABS: ALBUMIN 3.9 g/dl (3.4-5.0); BILIRUBIN,TOTAL 1.6 mg/dL (0.2-1); BLOOD UREA NITROGEN 9.7 mg/dL (7-18); CALCIUM 8.4 mg/dL (8.5-10.1); CREATININE 0.7 mg/dL (0.55-1.3); POTASSIUM 3.2 mmol/L (3.5-5.1)
[2019-06-13] MEDS: GABAPENTIN 300 MG CAPSULE PO SCH ×2 (13:40→22:49)
--- NOTE | 2019-06-13 14:07 | PN ---
S CIWA - CIWA Score Nausea/Vomitin-Mild Nausea/No Vomiting Muscle Tremors: 3 Anxiety: 3 Agitation: 1-Slight > Activity Paroxysmal Sweats: 2 Orientation: 0-Oriented Tacttile Disturbances: 0-None Auditory Disturbances: 0-None Visual Disturbances: 1-Very Mild Sensitivity Headache: 1-Very Mild CIWA-Ar Total Score: 12 S Progress Note (SOAP) Subjective: 49 years old male admitted on 06/12/19 for alcohol withdrawal sx management treating with librium detox regiment feeling ok today ate breakfast and lunch resting in bed feeling tired "no sleeping for days" patient is cooperative Objective: 06/13/19 14:09 Vital Signs Temperature 97.5 F L 06/13/19 09:15 Pulse Rate 109 H 06/13/19 09:15 Respiratory Rate 18 06/13/19 09:15 Blood Pressure 137/87 06/13/19 09:15 O2 Sat by Pulse Oximetry (%) Laboratory Last Values WBC 6.8 K/mm3 (4.0-10.0) 06/13/19 07:25 RBC 4.81 M/mm3 (4.00-5.60) 06/13/19 07:25 Hgb 14.8 GM/dL (11.7-16.9) 06/13/19 07:25 Hct 43.1 % (35.4-49) 06/13/19 07:25 MCV 89.6 fl (80-96) 06/13/19 07:25 MCH 30.8 pg (25.7-33.7) 06/13/19 07:25 MCHC 34.4 g/dl (32.0-35.9) 06/13/19 07:25 RDW 15.7 % (11.9-15.9) 06/13/19 07:25 Plt Count 239 K/MM3 (134-434) 06/13/19 07:25 MPV 8.8 fl (7.5-11.1) 06/13/19 07:25 Sodium 133 mmol/L (136-145) L 06/13/19 07:25 Potassium 3.2 mmol/L (3.5-5.1) L 06/13/19 07:25 Chloride 95 mmol/L (98-107) L 06/13/19 07:25 Carbon Dioxide 28 mmol/L (21-32) 06/13/19 07:25 Anion Gap 10 MMOL/L (8-16) 06/13/19 07:25 BUN 9.7 mg/dL (7-18) 06/13/19 07:25 Creatinine 0.7 mg/dL (0.55-1.3) 06/13/19 07:25 Est GFR (CKD-EPI)AfAm 130.25 06/13/19 07:25 Est GFR (CKD-EPI)NonAf 112.38 06/13/19 07:25 Random Glucose 84 mg/dL (74-106) 06/13/19 07:25 Calcium 8.4 mg/dL (8.5-10.1) L 06/13/19 07:25 Total Bilirubin 1.6 mg/dL (0.2-1) H 06/13/19 07:25 AST 50 U/L (15-37) H 06/13/19 07:25 ALT 44 U/L (13-61) 06/13/19 07:25 Alkaline Phosphatase 64 U/L (45-117) 06/13/19 07:25 Total Protein 7.0 g/dl (6.4-8.2) 06/13/19 07:25 Albumin 3.9 g/dl (3.4-5.0) 06/13/19 07:25 lab noted low K+ K+ supplement 20meq x 2 dosages 06/13/19 14:12 repeat K+ Assessment: 06/13/19 14:12 alcohol withdrawal Plan: librium regiment
[2019-06-13] MEDS: POTASSIUM CHLORIDE ORAL LIQUID 20 MEQ/15 ML PO SCH ×2 (15:13→18:01)
[2019-06-13] MEDS: THIAMINE HCL 100 MG TABLET (FP) PO SCH (22:49)
[2019-06-14] MEDS: GABAPENTIN 300 MG CAPSULE PO SCH ×3 (05:51→22:14)
[2019-06-14] MEDS: chlordiazePOXIDE HCL 25 MG CAPSULE PO SCH ×4 (05:51→22:14)
[2019-06-14] MEDS: BISMUTH SUBSALICYLATE 524 MG/30 ML UD PO PRN ×3 (06:35→17:42)
[2019-06-14] MEDS: PRENATAL VITAMINS W/ FOLIC ACID TABLET (FP) PO SCH (10:13)
--- NOTE | 2019-06-14 11:54 | PN ---
S CIWA - CIWA Score Nausea/Vomitin-No Nausea/No Vomiting Muscle Tremors: 2 Anxiety: 4-Mod. Anxious/Guarded Agitation: 0-Normal Activity Paroxysmal Sweats: 2 Orientation: 0-Oriented Tacttile Disturbances: 0-None Auditory Disturbances: 0-None Visual Disturbances: 1-Very Mild Sensitivity Headache: 0-None Present CIWA-Ar Total Score: 9 BHS Progress Note (SOAP) Subjective: 49 years old male admitted on 06/12/19 for alcohol withdrawal sx management treating with librium detox regiment reports taking neurontine for ocd and anxiety seen by psychiatrist resume lose dose of neurontin second psychiatrist referral for titrate up neurontine case discussed with the psychiatrist today that the patient will be seen by a psychiatrist today Objective: 06/14/19 11:53 Vital Signs Temperature 96.5 F L 06/14/19 09:13 Pulse Rate 111 H 06/14/19 09:13 Respiratory Rate 18 06/14/19 09:13 Blood Pressure 133/92 06/14/19 09:13 O2 Sat by Pulse Oximetry (%) Laboratory Last Values WBC 6.8 K/mm3 (4.0-10.0) 06/13/19 07:25 RBC 4.81 M/mm3 (4.00-5.60) 06/13/19 07:25 Hgb 14.8 GM/dL (11.7-16.9) 06/13/19 07:25 Hct 43.1 % (35.4-49) 06/13/19 07:25 MCV 89.6 fl (80-96) 06/13/19 07:25 MCH 30.8 pg (25.7-33.7) 06/13/19 07:25 MCHC 34.4 g/dl (32.0-35.9) 06/13/19 07:25 RDW 15.7 % (11.9-15.9) 06/13/19 07:25 Plt Count 239 K/MM3 (134-434) 06/13/19 07:25 MPV 8.8 fl (7.5-11.1) 06/13/19 07:25 Sodium 133 mmol/L (136-145) L 06/13/19 07:25 Potassium 3.6 mmol/L (3.5-5.1) 06/14/19 07:30 Chloride 95 mmol/L (98-107) L 06/13/19 07:25 Carbon Dioxide 28 mmol/L (21-32) 06/13/19 07:25 Anion Gap 10 MMOL/L (8-16) 06/13/19 07:25 BUN 9.7 mg/dL (7-18) 06/13/19 07:25 Creatinine 0.7 mg/dL (0.55-1.3) 06/13/19 07:25 Est GFR (CKD-EPI)AfAm 130.25 06/13/19 07:25 Est GFR (CKD-EPI)NonAf 112.38 06/13/19 07:25 Random Glucose 84 mg/dL (74-106) 06/13/19 07:25 Calcium 8.4 mg/dL (8.5-10.1) L 06/13/19 07:25 Total Bilirubin 1.6 mg/dL (0.2-1) H 06/13/19 07:25 AST 50 U/L (15-37) H 06/13/19 07:25 ALT 44 U/L (13-61) 06/13/19 07:25 Alkaline Phosphatase 64 U/L (45-117) 06/13/19 07:25 Total Protein 7.0 g/dl (6.4-8.2) 06/13/19 07:25 Albumin 3.9 g/dl (3.4-5.0) 06/13/19 07:25 RPR Titer Nonreactive (NONREACTIVE) 06/13/19 07:25 lab noted Assessment: 06/14/19 11:54 alcohol withdrawal Plan: librium regiment
--- NOTE | 2019-06-14 16:36 | PN ---
Psychiatric Progress Note Vital Signs: Vital Signs Period Temp Pulse Resp BP Sys/[place] Pulse Ox Last 24 Hr 96.0 F-96.9 F 70-112 18-20 106-133/72-96 Date of Session: 06/14/19 Chief Complaint:: " I need to have my gabapentin dose adjusted." HPI: Day 3 of detoxification. Patient needed to see psychiatrist for re- adjustment of his gabapentin dose. Hospital course is otherwise unremarkable. ROS: Unremarkable. Patient is alert and fully oriented. Ambulatory. Steady gait. Current Medications: Active Medications Generic Name Dose Route Start Last Admin Trade Name Freq PRN Reason Stop Dose Admin Acetaminophen 650 mg 06/12/19 16:47 Tylenol - PO Q6H PRN PAIN LEVEL 4 - 6 Acetaminophen 650 mg 06/12/19 16:47 Tylenol - PO Q6H PRN FEVER Al Hydroxide/Mg Hydroxide 30 ml 06/12/19 16:47 06/13/19 18:02 Mylanta Oral Suspension - PO 30 ml Q6H PRN Administration DYSPEPSIA Bismuth Subsalicylate 524 mg 06/12/19 16:47 06/14/19 10:14 Pepto-Bismol - PO 524 mg Q1H PRN Administration DIARRHEA Chlordiazepoxide HCl 10 mg 06/15/19 05:00 Librium - PO 06/15/19 23:01 [id number] MAURISIO Chlordiazepoxide HCl 10 mg 06/16/19 05:00 Librium - PO 06/16/19 17:01 Q12H MAURISIO Chlordiazepoxide HCl 10 mg 06/15/19 00:00 Librium - PO 06/16/19 00:00 Q4H PRN WITHDRAWAL(CONT SUBST) Chlordiazepoxide HCl 10 mg 06/17/19 05:00 Librium - PO 06/17/19 05:01 ONCE@0500 ONE Chlordiazepoxide HCl 25 mg 06/14/19 05:00 06/14/19 10:13 Librium - PO 06/14/19 23:01 25 mg [id number] MAURISIO Administration Chlordiazepoxide HCl 25 mg 06/12/19 16:47 06/12/19 18:49 Librium - PO 06/14/19 23:59 25 mg Q4H PRN Administration WITHDRAWAL(CONT SUBST) Clonidine 0.1 mg 06/12/19 18:40 06/12/19 18:49 Catapres - PO 0.1 mg Q4H PRN Administration ANXIETY Eucalyptus/Menthol/Phenol/Sorbitol 1 each 06/12/19 16:47 Cepastat Lozenge - MM 06/18/19 16:47 Q4H PRN SORE THROAT Gabapentin 300 mg 06/13/19 14:00 06/14/19 14:13 Neurontin - PO 300 mg TID MAURISIO Administration Hydroxyzine Pamoate 25 mg 06/12/19 16:47 Vistaril - PO 06/18/19 16:47 Q6H PRN For Anxiety Ibuprofen 400 mg 06/12/19 16:47 06/13/19 13:40 Motrin - PO 400 mg Q6H PRN Administration PAIN LEVEL 1 - 3 Magnesium Citrate 300 ml 06/12/19 16:47 Citroma - PO Q48H PRN CONSTIPATION Magnesium Hydroxide 30 ml 06/12/19 16:47 Milk Of Magnesia - PO PRN PRN CONSTIPATION Melatonin 5 mg 06/12/19 16:47 Melatonin PO HS PRN INSOMNIA Methocarbamol 500 mg 06/12/19 16:47 Robaxin - PO 06/18/19 16:47 Q6H PRN MUSCLE SPASMS Multivit/Folic Acid/Iron 1 tab 06/13/19 10:00 06/14/19 10:13 Vitamins (Sjr) - PO 1 tab DAILY MAURISIO Administration Thiamine HCl 100 mg 06/12/19 22:00 06/13/19 22:49 Vitamin B1 - PO 100 mg HS MAURISIO Administration Unre Medication(s) Change(s): Gabapentin dose is raised to 600 mg po tid. Side effects/benefits discussed with patient. Mr Perez is agreeable with this plan of care. Gave informed consent (verbal) to MD. Current Side Effect: No Lab tests ordered: No Lab tests reviewed: Yes Provider note:: Chart reviewed. Records revisited. Patient is already known to this chief underwriter. Consult note of 06/13/19 by clinical esthetician Ibrahima Almaraz : read and appreciated. Met with patient. Mr Perez is noted as well-mannered, pleasant on approach and adherent to his treatment plan. Feels concerned about not being on his full dose of gabapentin. Doing well otherwise. Stable mental status. See MSE report for details. Uneventful hospital course. Total face to face time:: 25 Mental Status Exam - Mental Status Exam Alert and Oriented to: Time, Place, Person Cognitive Function: Good Patient Appearance: Well Groomed Mood: Nervous, Anxious, Hopeful Affect: Mood Congruent, Constricted Patient Behavior: Fatigued, Appropriate, Cooperative Speech Pattern: Clear, Appropriate Voice Loudness: Normal Thought Process: Intact, Goal Oriented Thought Disorder: Not Present Hallucinations: Denies Suicidal Ideation: Denies Homicidal Ideation: Denies Insight/Judgement: Fair Sleep: Fair Appetite: Good Gait/Station: Normal Psychiatric Treatment Plan - Problem List (1) Alcohol dependence with uncomplicated withdrawal Current Visit: Yes Comment: . (2) Alcohol-induced mood disorder Current Visit: Yes Comment: . (3) Anxiety disorder Current Visit: Yes Comment: . (4) History of depression Current Visit: Yes Comment: .
[2019-06-14 19:30] LABS: EPI CELLS 0.1 /HPF (0-5/HPF); HYALINE CASTS 0 /lpf (0-8); URINE APPEARANCE CLEAR; URINE BILIRUBIN NEGATIVE (NEGATIVE); URINE COLOR YELLOW; URINE GLUCOSE (UA) NEGATIVE (NEGATIVE); URINE KETONE NEGATIVE (NEGATIVE); URINE LEUK ESTERASE NEGATIVE (NEGATIVE); URINE NITRITE NEGATIVE (NEGATIVE); URINE PROTEIN NEGATIVE (NEGATIVE); URINE RBC 1 /hpf (0-4); URINE UROBILINOGEN 0.2 mg/dL (0.2-1.0); URINE WBC 0 /hpf (0-5)
[2019-06-14] MEDS: THIAMINE HCL 100 MG TABLET (FP) PO SCH (22:14)
[2019-06-15] MEDS ORDERED: chlordiazePOXIDE HCL 10 MG CAPSULE PO PRN
[2019-06-15] MEDS: chlordiazePOXIDE HCL 10 MG CAPSULE PO SCH ×4 (05:12→22:11)
[2019-06-15] MEDS: GABAPENTIN 300 MG CAPSULE PO SCH ×3 (05:12→22:11)
[2019-06-15] MEDS: PRENATAL VITAMINS W/ FOLIC ACID TABLET (FP) PO SCH (10:14)
--- NOTE | 2019-06-15 11:10 | PN ---
S CIWA - CIWA Score Nausea/Vomitin-Mild Nausea/No Vomiting Muscle Tremors: 2 Anxiety: 1-Mildly Anxious Agitation: 1-Slight > Activity Paroxysmal Sweats: 1-Minimal Palms Moist Orientation: 1-Uncertain about Date Tacttile Disturbances: 0-None Auditory Disturbances: 0-None Visual Disturbances: 0-None Headache: 0-None Present CIWA-Ar Total Score: 7 [facility] Progress Note (SOAP) Subjective: pt here for alcohol detox, says would like to go to rehab O: Vital Signs - 24 hr 06/14/19 06/14/19 06/14/19 12:51 16:40 20:36 Temperature 96.9 F L 97.7 F 98.2 F Pulse Rate 112 H 107 H 98 H Respiratory 18 18 18 Rate Blood Pressure 123/92 115/81 116/68 06/15/19 06/15/19 06/15/19 00:30 06:08 08:30 Temperature 97.0 F L 98.0 F Pulse Rate 80 80 Respiratory 18 18 18 Rate Blood Pressure 107/67 123/84 Laboratory Tests 06/13/19 06/13/19 06/13/19 07:25 07:25 07:25 WBC 6.8 RBC 4.81 Hgb 14.8 Hct 43.1 MCV 89.6 MCH 30.8 MCHC 34.4 RDW 15.7 Plt Count 239 MPV 8.8 Sodium 133 L Potassium 3.2 L Chloride 95 L Carbon Dioxide 28 Anion Gap 10 BUN 9.7 Creatinine 0.7 Est GFR (CKD-EPI)AfAm 130.25 Est GFR (CKD-EPI)NonAf 112.38 Random Glucose 84 Calcium 8.4 L Total Bilirubin 1.6 H AST 50 H ALT 44 Alkaline Phosphatase 64 Total Protein 7.0 Albumin 3.9 Urine Color Urine Appearance Urine pH Ur Specific [place] Urine Protein Urine Glucose (UA) Urine Ketones Urine Blood Urine Nitrite Urine Bilirubin Urine Urobilinogen Ur Leukocyte Esterase Urine WBC (Auto) Urine RBC (Auto) Urine Casts (Auto) U Epithel Cells (Auto) Urine Bacteria (Auto) RPR Titer Nonreactive 06/14/19 06/14/19 07:30 16:15 WBC RBC Hgb Hct MCV MCH MCHC RDW Plt Count MPV Sodium Potassium 3.6 Chloride Carbon Dioxide Anion Gap BUN Creatinine Est GFR (CKD-EPI)AfAm Est GFR (CKD-EPI)NonAf Random Glucose Calcium Total Bilirubin AST ALT Alkaline Phosphatase Total Protein Albumin Urine Color Yellow Urine Appearance Clear Urine pH 7.0 Ur Specific [place] 1.006 L Urine Protein Negative Urine Glucose (UA) Negative Urine Ketones Negative Urine Blood Trace Urine Nitrite Negative Urine Bilirubin Negative Urine Urobilinogen 0.2 Ur Leukocyte Esterase Negative Urine WBC (Auto) 0 Urine RBC (Auto) 1 Urine Casts (Auto) 0 U Epithel Cells (Auto) 0.1 Urine Bacteria (Auto) 1.0 RPR Titer K normal high bili/ASt a/p: alcohol use disorder: pt would like to go to rehab- pt to d/w with counselor re this.
[2019-06-15] MEDS: THIAMINE HCL 100 MG TABLET (FP) PO SCH (22:11)
[2019-06-16] MEDS: GABAPENTIN 300 MG CAPSULE PO SCH ×3 (05:26→22:16)
[2019-06-16] MEDS: chlordiazePOXIDE HCL 10 MG CAPSULE PO SCH ×2 (05:26→18:39)
[2019-06-16] MEDS: PRENATAL VITAMINS W/ FOLIC ACID TABLET (FP) PO SCH (10:11)
--- NOTE | 2019-06-16 10:59 | PN ---
S CIWA - CIWA Score Nausea/Vomitin-No Nausea/No Vomiting Muscle Tremors: 1-None Visible, but [place] Anxiety: 1-Mildly Anxious Agitation: 0-Normal Activity Paroxysmal Sweats: 1-Minimal Palms Moist Orientation: 0-Oriented Tacttile Disturbances: 0-None Auditory Disturbances: 0-None Visual Disturbances: 1-Very Mild Sensitivity Headache: 0-None Present CIWA-Ar Total Score: 4 BHS Progress Note (SOAP) Subjective: 49 years old male admitted on 06/12/19 for alcohol withdrawal sx management treating with librium detox regiment feeling better today social with peers in day room attending behavior and psychosocial therapies groups and meetings while in detox discuss aftercare with staff Objective: 06/16/19 11:00 Vital Signs Temperature 86.0 F L 06/16/19 06:53 Pulse Rate 72 06/16/19 06:53 Respiratory Rate 18 06/16/19 06:53 Blood Pressure 134/95 06/16/19 06:53 O2 Sat by Pulse Oximetry (%) Laboratory Last Values WBC 6.8 K/mm3 (4.0-10.0) 06/13/19 07:25 RBC 4.81 M/mm3 (4.00-5.60) 06/13/19 07:25 Hgb 14.8 GM/dL (11.7-16.9) 06/13/19 07:25 Hct 43.1 % (35.4-49) 06/13/19 07:25 MCV 89.6 fl (80-96) 06/13/19 07:25 MCH 30.8 pg (25.7-33.7) 06/13/19 07:25 MCHC 34.4 g/dl (32.0-35.9) 06/13/19 07:25 RDW 15.7 % (11.9-15.9) 06/13/19 07:25 Plt Count 239 K/MM3 (134-434) 06/13/19 07:25 MPV 8.8 fl (7.5-11.1) 06/13/19 07:25 Sodium 133 mmol/L (136-145) L 06/13/19 07:25 Potassium 3.6 mmol/L (3.5-5.1) 06/14/19 07:30 Chloride 95 mmol/L (98-107) L 06/13/19 07:25 Carbon Dioxide 28 mmol/L (21-32) 06/13/19 07:25 Anion Gap 10 MMOL/L (8-16) 06/13/19 07:25 BUN 9.7 mg/dL (7-18) 06/13/19 07:25 Creatinine 0.7 mg/dL (0.55-1.3) 06/13/19 07:25 Est GFR (CKD-EPI)AfAm 130.25 06/13/19 07:25 Est GFR (CKD-EPI)NonAf 112.38 06/13/19 07:25 Random Glucose 84 mg/dL (74-106) 06/13/19 07:25 Calcium 8.4 mg/dL (8.5-10.1) L 06/13/19 07:25 Total Bilirubin 1.6 mg/dL (0.2-1) H 06/13/19 07:25 AST 50 U/L (15-37) H 06/13/19 07:25 ALT 44 U/L (13-61) 06/13/19 07:25 Alkaline Phosphatase 64 U/L (45-117) 06/13/19 07:25 Total Protein 7.0 g/dl (6.4-8.2) 06/13/19 07:25 Albumin 3.9 g/dl (3.4-5.0) 06/13/19 07:25 Urine Color Yellow 06/14/19 16:15 Urine Appearance Clear 06/14/19 16:15 Urine pH 7.0 (5.0-8.0) 06/14/19 16:15 Ur Specific [place] 1.006 (1.010-1.035) L 06/14/19 16:15 Urine Protein Negative (NEGATIVE) 06/14/19 16:15 Urine Glucose (UA) Negative (NEGATIVE) 06/14/19 16:15 Urine Ketones Negative (NEGATIVE) 06/14/19 16:15 Urine Blood Trace (NEGATIVE) 06/14/19 16:15 Urine Nitrite Negative (NEGATIVE) 06/14/19 16:15 Urine Bilirubin Negative (NEGATIVE) 06/14/19 16:15 Urine Urobilinogen 0.2 mg/dL (0.2-1.0) 06/14/19 16:15 Ur Leukocyte Esterase Negative (NEGATIVE) 02/17/20 16:15 Urine WBC (Auto) 0 /hpf (0-5) 06/14/19 16:15 Urine RBC (Auto) 1 /hpf (0-4) 06/14/19 16:15 Urine Casts (Auto) 0 /lpf (0-8) 06/14/19 16:15 U Epithel Cells (Auto) 0.1 /HPF (0-5/HPF) 06/14/19 16:15 Urine Bacteria (Auto) 1.0 /hpf (NEGATIVE) 06/14/19 16:15 RPR Titer Nonreactive (NONREACTIVE) 06/13/19 07:25 lab noted Assessment: 06/16/19 11:00 alcohol withdrawal Plan: librium regiment
[2019-06-16] MEDS: THIAMINE HCL 100 MG TABLET (FP) PO SCH (22:16)
[2019-06-17] MEDS ORDERED: chlordiazePOXIDE HCL 10 MG CAPSULE PO ONE (05:00)
[2019-06-17 06:28] VITALS: BP 121/80; PULSE 20; TEMP 96.7
[2019-06-17] MEDS: GABAPENTIN 300 MG CAPSULE PO SCH (06:28)
--- NOTE | 2019-06-17 09:16 | DS ---
[facility] Detox Discharge Summary Admission Date: 06/12/19 Discharge Date: 06/17/19 - History Present History: Alcohol Dependence Additional Comments: 49 years old male admitted on 06/12/19 for alcohol withdrawal sx management treated with librium detox regiment Mr Harmon has completed the librium regiment and is tolerated well seen by psychiatrist resume neurontin 300 mg po tid alert oriented x 3 respiratory clear lung lungs bilaterally on auscultation extremities full range of motion skin warm and dry Pertinent Past History: time for discharge 35 minutes - Physical Exam Results Vital Signs: Vital Signs Temperature 96.7 F L 06/17/19 06:36 Pulse Rate 20 L 06/17/19 06:36 Respiratory Rate 91 H 06/17/19 06:36 Blood Pressure 121/80 06/17/19 06:36 O2 Sat by Pulse Oximetry (%) Pertinent Admission Physical Exam Findings: alcohol withdrawal Vital Signs Temperature 96.7 F L 06/17/19 06:36 Pulse Rate 20 L 06/17/19 06:36 Respiratory Rate 91 H 06/17/19 06:36 Blood Pressure 121/80 06/17/19 06:36 O2 Sat by Pulse Oximetry (%) Laboratory Last Values WBC 6.8 K/mm3 (4.0-10.0) 06/13/19 07:25 RBC 4.81 M/mm3 (4.00-5.60) 06/13/19 07:25 Hgb 14.8 GM/dL (11.7-16.9) 06/13/19 07:25 Hct 43.1 % (35.4-49) 06/13/19 07:25 MCV 89.6 fl (80-96) 06/13/19 07:25 MCH 30.8 pg (25.7-33.7) 06/13/19 07:25 MCHC 34.4 g/dl (32.0-35.9) 06/13/19 07:25 RDW 15.7 % (11.9-15.9) 06/13/19 07:25 Plt Count 239 K/MM3 (134-434) 06/13/19 07:25 MPV 8.8 fl (7.5-11.1) 06/13/19 07:25 Sodium 133 mmol/L (136-145) L 06/13/19 07:25 Potassium 3.6 mmol/L (3.5-5.1) 06/14/19 07:30 Chloride 95 mmol/L (98-107) L 06/13/19 07:25 Carbon Dioxide 28 mmol/L (21-32) 06/13/19 07:25 Anion Gap 10 MMOL/L (8-16) 06/13/19 07:25 BUN 9.7 mg/dL (7-18) 06/13/19 07:25 Creatinine 0.7 mg/dL (0.55-1.3) 06/13/19 07:25 Est GFR (CKD-EPI)AfAm 130.25 06/13/19 07:25 Est GFR (CKD-EPI)NonAf 112.38 06/13/19 07:25 Random Glucose 84 mg/dL (74-106) 06/13/19 07:25 Calcium 8.4 mg/dL (8.5-10.1) L 06/13/19 07:25 Total Bilirubin 1.6 mg/dL (0.2-1) H 06/13/19 07:25 AST 50 U/L (15-37) H 06/13/19 07:25 ALT 44 U/L (13-61) 06/13/19 07:25 Alkaline Phosphatase 64 U/L (45-117) 06/13/19 07:25 Total Protein 7.0 g/dl (6.4-8.2) 06/13/19 07:25 Albumin 3.9 g/dl (3.4-5.0) 06/13/19 07:25 Urine Color Yellow 06/14/19 16:15 Urine Appearance Clear 06/14/19 16:15 Urine pH 7.0 (5.0-8.0) 06/14/19 16:15 Ur Specific [place] 1.006 (1.010-1.035) L 06/14/19 16:15 Urine Protein Negative (NEGATIVE) 06/14/19 16:15 Urine Glucose (UA) Negative (NEGATIVE) 06/14/19 16:15 Urine Ketones Negative (NEGATIVE) 06/14/19 16:15 Urine Blood Trace (NEGATIVE) 06/14/19 16:15 Urine Nitrite Negative (NEGATIVE) 06/14/19 16:15 Urine Bilirubin Negative (NEGATIVE) 06/14/19 16:15 Urine Urobilinogen 0.2 mg/dL (0.2-1.0) 06/14/19 16:15 Ur Leukocyte Esterase Negative (NEGATIVE) 06/14/19 16:15 Urine WBC (Auto) 0 /hpf (0-5) 06/14/19 16:15 Urine RBC (Auto) 1 /hpf (0-4) 06/14/19 16:15 Urine Casts (Auto) 0 /lpf (0-8) 06/14/19 16:15 U Epithel Cells (Auto) 0.1 /HPF (0-5/HPF) 06/14/19 16:15 Urine Bacteria (Auto) 1.0 /hpf (NEGATIVE) 06/14/19 16:15 RPR Titer Nonreactive (NONREACTIVE) 06/13/19 07:25 lab noted - Treatment Hospital Course: Detox Protocol Followed, Detoxed Safely, Responded well, Discharged Condition Good, Rehab Referral Accepted Patient has Accepted [facility] Referral [facility] - Medication Discharge Medications: Ambulatory Orders Gabapentin 600 mg PO TID #90 tablet 05/03/19 - Diagnosis (1) Substance induced mood disorder Status: Suspected (2) Alcohol dependence with uncomplicated withdrawal Status: Acute (3) OCD (obsessive compulsive disorder) Status: Suspected Qualifiers: Obsessive-compulsive disorder type: unspecified Qualified Code(s): F42.9 - Obsessive-compulsive disorder, unspecified (4) Obesity (BMI 30.0-34.9) Status: Chronic - AMA Did Patient Leave Against Medical Advice: No CIWA Score - CIWA Score Nausea/Vomitin-No Nausea/No Vomiting Muscle Tremors: 1-None Visible, but [place] Anxiety: 1-Mildly Anxious Agitation: 0-Normal Activity Paroxysmal Sweats: No Perspiration Orientation: 0-Oriented Tacttile Disturbances: 0-None Auditory Disturbances: 0-None Visual Disturbances: 0-None Headache: 0-None Present CIWA-Ar Total Score: 2
== END 2019-06-17 08:50 | disposition home or self-care (01) | DRG 775 ==
LOC: YASAS 11:31 → Y3N 17:31
PROVIDERS: ADMIT Allergy & Immunology; ATTEND Allergy & Immunology
PROC: HZ2ZZZZ Detoxification Services for Substance Abuse Treatment (ICD-10-PCS; principal; 2019-06-12)
DX: F10.230 Alcohol dependence with withdrawal, uncomplicated (principal); F10.24 Alcohol dependence with alcohol-induced mood disorder; F19.24 Other psychoactive substance dependence with psychoactive substance-induced mood disorder; F41.9 Anxiety disorder, unspecified; F42.9 Obsessive-compulsive disorder, unspecified; F32.9 Major depressive disorder, single episode, unspecified; E87.6 Hypokalemia; M54.5 Low back pain; G89.29 Other chronic pain; E66.9 Obesity, unspecified; Z68.31 Body mass index [BMI] 31.0-31.9, adult; R55 Syncope and collapse
CPT/HCPCS: 36415; 80053; 81003; 84132; 85027; 86593; J0735

== ENCOUNTER 2021-01-09 08:22 | Inpatient (IN) | payer OTHER ==
[2021-01-09 13:27] VITALS: BMI 29.1
[2021-01-09] MEDS ORDERED: MENTHOL/PHENOL 1 EACH UD MM PRN (15:19)
[2021-01-09] MEDS ORDERED: ACETAMINOPHEN 325 MG TABLET (FP) PO PRN ×2 (15:19)
[2021-01-09] MEDS ORDERED: METHOCARBAMOL 500 MG TABLET PO PRN (15:19)
[2021-01-09] MEDS ORDERED: IBUPROFEN 400 MG TABLET (FP) PO PRN (15:19)
[2021-01-09] MEDS ORDERED: MAG HYDROX/AL HYDROX/SIMETH 30 ML UNIT-DOSE CUP PO PRN (15:19)
[2021-01-09] MEDS ORDERED: diazePAM 5 MG TABLET PO PRN (15:19)
[2021-01-09] MEDS ORDERED: MAGNESIUM CITRATE 300 ML BOTTLE PO PRN (15:19)
[2021-01-09] MEDS ORDERED: ONDANSETRON *ODT* 4 MG TABLET SL PRN (15:19)
[2021-01-09] MEDS ORDERED: BISMUTH SUBSALICYLATE 524 MG/30 ML PO PRN (15:19)
[2021-01-09] MEDS ORDERED: MAGNESIUM HYDROX 2400MG/30ML ORAL SUSPENSION 30 ML CUP PO PRN (15:19)
[2021-01-09] MEDS: hydrOXYzine PAMOATE 25 MG CAPSULE (FP) PO SCH ×2 (17:53→22:05)
[2021-01-09] MEDS: diazePAM 5 MG TABLET PO SCH ×2 (17:53→22:06)
[2021-01-09] MEDS: PRENATAL VITAMINS W/ FOLIC ACID TABLET (FP) PO SCH (17:54)
[2021-01-09] MEDS ORDERED: MELATONIN 5 MG TABLETS PO SCH (22:00)
[2021-01-09] MEDS: TOLNAFTATE 1% CREAM 15 GM TUBE TP SCH (22:04)
[2021-01-09] MEDS: THIAMINE HCL 100 MG TABLET (FP) PO SCH (22:05)
[2021-01-10] MEDS: diazePAM 5 MG TABLET PO SCH ×4 (05:26→22:11)
[2021-01-10] MEDS: hydrOXYzine PAMOATE 25 MG CAPSULE (FP) PO SCH ×5 (05:27→22:11)
[2021-01-10] MEDS: PRENATAL VITAMINS W/ FOLIC ACID TABLET (FP) PO SCH (10:29)
[2021-01-10] MEDS: TOLNAFTATE 1% CREAM 15 GM TUBE TP SCH ×2 (10:29→22:11)
[2021-01-10 12:46] LABS: HEMATOCRIT 41.1 % (35.4-49); HEMOGLOBIN 14.2 GM/dL (11.7-16.9); MCH 32.2 pg (25.7-33.7); MCHC 34.7 g/dl (32.0-35.9); MEAN CELL VOLUME 92.7 fl (80-96); MEAN PLT VOLUME 8.5 fl (7.5-11.1); PLATELET COUNT 203 10^3/uL (134-434); RBC 4.43 M/mm3 (4.00-5.60); RDW 12.6 % (11.9-15.9)
[2021-01-10 13:08] LABS: CALCIUM 8.7 mg/dL (8.5-10.1)
[2021-01-10 13:09] LABS: ALBUMIN 3.3 g/dl (3.4-5.0); BLOOD UREA NITROGEN 11.6 mg/dL (7-18)
[2021-01-10 13:12] LABS: CREATININE 0.9 mg/dL (0.55-1.3)
[2021-01-10 13:14] LABS: BILIRUBIN,TOTAL 2.4 mg/dL (0.2-1); TOT PROT 6.5 g/dl (6.4-8.2)
[2021-01-10] MEDS: GABAPENTIN 100 MG CAPSULE PO SCH ×2 (14:55→22:11)
[2021-01-10] MEDS ORDERED: LOPERAMIDE HCL 2 MG CAPSULE PO PRN (14:57)
[2021-01-10] MEDS: THIAMINE HCL 100 MG TABLET (FP) PO SCH (22:11)
[2021-01-11] MEDS: diazePAM 5 MG TABLET PO SCH ×3 (05:29→22:18)
[2021-01-11] MEDS: GABAPENTIN 100 MG CAPSULE PO SCH ×3 (05:29→22:19)
[2021-01-11] MEDS: hydrOXYzine PAMOATE 25 MG CAPSULE (FP) PO SCH ×5 (05:30→22:19)
[2021-01-11] MEDS: PRENATAL VITAMINS W/ FOLIC ACID TABLET (FP) PO SCH (10:13)
[2021-01-11] MEDS: TOLNAFTATE 1% CREAM 15 GM TUBE TP SCH ×2 (10:14→22:18)
[2021-01-11] MEDS ORDERED: GABAPENTIN 300 MG CAPSULE PO SCH (22:00)
[2021-01-11] MEDS: THIAMINE HCL 100 MG TABLET (FP) PO SCH (22:19)
[2021-01-12] MEDS: diazePAM 5 MG TABLET PO SCH ×2 (05:21→18:09)
[2021-01-12] MEDS: hydrOXYzine PAMOATE 25 MG CAPSULE (FP) PO SCH ×5 (05:22→22:32)
[2021-01-12] MEDS: GABAPENTIN 100 MG CAPSULE PO SCH ×3 (05:22→22:31)
[2021-01-12] MEDS: PRENATAL VITAMINS W/ FOLIC ACID TABLET (FP) PO SCH (10:58)
[2021-01-12] MEDS: TOLNAFTATE 1% CREAM 15 GM TUBE TP SCH ×2 (10:59→22:31)
[2021-01-12] MEDS: THIAMINE HCL 100 MG TABLET (FP) PO SCH (22:31)
[2021-01-13] MEDS ORDERED: diazePAM 5 MG TABLET PO ONE (06:00)
[2021-01-13] MEDS: GABAPENTIN 100 MG CAPSULE PO SCH ×4 (06:58→22:20)
[2021-01-13] MEDS: hydrOXYzine PAMOATE 25 MG CAPSULE (FP) PO SCH ×5 (07:00→22:21)
[2021-01-13] MEDS: PRENATAL VITAMINS W/ FOLIC ACID TABLET (FP) PO SCH (10:52)
[2021-01-13] MEDS: TOLNAFTATE 1% CREAM 15 GM TUBE TP SCH ×2 (10:52→22:20)
[2021-01-13] MEDS: THIAMINE HCL 100 MG TABLET (FP) PO SCH (22:20)
[2021-01-14] MEDS: GABAPENTIN 100 MG CAPSULE PO SCH ×3 (05:11→22:16)
[2021-01-14] MEDS: hydrOXYzine PAMOATE 25 MG CAPSULE (FP) PO SCH ×5 (05:11→22:16)
[2021-01-14] MEDS: PRENATAL VITAMINS W/ FOLIC ACID TABLET (FP) PO SCH (10:16)
[2021-01-14] MEDS: TOLNAFTATE 1% CREAM 15 GM TUBE TP SCH ×2 (10:16→22:16)
[2021-01-14] MEDS: THIAMINE HCL 100 MG TABLET (FP) PO SCH (22:16)
[2021-01-15] MEDS: hydrOXYzine PAMOATE 25 MG CAPSULE (FP) PO SCH ×3 (05:37→13:05)
[2021-01-15] MEDS: GABAPENTIN 100 MG CAPSULE PO SCH ×2 (05:37→13:03)
[2021-01-15] MEDS: PRENATAL VITAMINS W/ FOLIC ACID TABLET (FP) PO SCH (10:11)
[2021-01-15] MEDS: TOLNAFTATE 1% CREAM 15 GM TUBE TP SCH (10:12)
[2021-01-15] MEDS ORDERED: FLUOCINONIDE 0.05% CREAM (15 GM TUBE) TP SCH (11:30)
[2021-01-15 13:27] VITALS: BP 117/78; PULSE 106; TEMP 97.4
== END 2021-01-15 13:59 | disposition other institution (70) | DRG 775 ==
LOC: YASAS 08:22 → Y3N 15:33
PROVIDERS: ADMIT Allergy & Immunology; ATTEND Allergy & Immunology
PROC: HZ2ZZZZ Detoxification Services for Substance Abuse Treatment (ICD-10-PCS; principal; 2021-01-09)
DX: F10.230 Alcohol dependence with withdrawal, uncomplicated (principal); F10.280 Alcohol dependence with alcohol-induced anxiety disorder; F10.24 Alcohol dependence with alcohol-induced mood disorder; F19.282 Other psychoactive substance dependence with psychoactive substance-induced sleep disorder; F19.24 Other psychoactive substance dependence with psychoactive substance-induced mood disorder; F41.8 Other specified anxiety disorders; F42.9 Obsessive-compulsive disorder, unspecified; L25.9 Unspecified contact dermatitis, unspecified cause; Z56.0 Unemployment, unspecified; Z59.0 Homelessness
CPT/HCPCS: 36415; 80053; 82247; 85027; 86780; C9803; U0003; U0005

== ENCOUNTER 2021-01-15 14:15 | Inpatient (IN) | payer OTHER ==
[2021-01-15] MEDS ORDERED: guaiFENesin 200 MG/10 ML 10 ML UNIT-DOSE CUPS PO PRN (15:17)
[2021-01-15] MEDS ORDERED: MAGNESIUM HYDROX 2400MG/30ML ORAL SUSPENSION 30 ML CUP PO PRN (15:17)
[2021-01-15] MEDS ORDERED: ACETAMINOPHEN 325 MG TABLET (FP) PO PRN (15:17)
[2021-01-15] MEDS ORDERED: hydrOXYzine PAMOATE 25 MG CAPSULE (FP) PO PRN (15:17)
[2021-01-15] MEDS ORDERED: NICOTINE POLACRILEX 2 MG GUM BUC PRN (15:17)
[2021-01-15] MEDS ORDERED: IBUPROFEN 400 MG TABLET (FP) PO PRN (15:17)
[2021-01-15] MEDS ORDERED: LOPERAMIDE HCL 2 MG CAPSULE PO PRN (15:17)
[2021-01-15] MEDS ORDERED: P-EPHED 60MG/TRIPROLIDI 2.5MG TABLET PO PRN (15:17)
[2021-01-15] MEDS ORDERED: MENTHOL/PHENOL 1 EACH UD MM PRN (15:17)
[2021-01-15] MEDS ORDERED: NICOTINE 10 MG CARTRIDGE (INHALER) IH PRN (15:17)
[2021-01-15] MEDS ORDERED: MAG HYDROX/AL HYDROX/SIMETH 30 ML UNIT-DOSE CUP PO PRN (15:17)
[2021-01-15] MEDS ORDERED: MAGNESIUM CITRATE 300 ML BOTTLE PO PRN (15:17)
[2021-01-15] MEDS ORDERED: KETOCONAZOLE 2% TOPICAL CREAM 15 GM TUBE TP PRN (15:41)
[2021-01-15] MEDS: MELATONIN 5 MG TABLETS PO SCH (21:09)
[2021-01-15] MEDS: THIAMINE HCL 100 MG TABLET (FP) PO SCH (21:10)
[2021-01-15] MEDS: GABAPENTIN 100 MG CAPSULE PO SCH (21:10)
[2021-01-15] MEDS ORDERED: FLUOCINONIDE 0.05% CREAM (15 GM TUBE) TP SCH (22:00)
[2021-01-16] MEDS: GABAPENTIN 100 MG CAPSULE PO SCH ×3 (06:21→21:37)
[2021-01-16] MEDS: PRENATAL VITAMINS W/ FOLIC ACID TABLET (FP) PO SCH (09:50)
[2021-01-16] MEDS: NICOTINE 7 MG/24 HOURS TOPICAL PATCH TD SCH (09:50)
[2021-01-16] MEDS: MELATONIN 5 MG TABLETS PO SCH (21:36)
[2021-01-16] MEDS: THIAMINE HCL 100 MG TABLET (FP) PO SCH (21:36)
[2021-01-17] MEDS: GABAPENTIN 100 MG CAPSULE PO SCH (06:10)
[2021-01-17] MEDS: PRENATAL VITAMINS W/ FOLIC ACID TABLET (FP) PO SCH (09:49)
[2021-01-17] MEDS: NICOTINE 7 MG/24 HOURS TOPICAL PATCH TD SCH (09:49)
[2021-01-17] MEDS: FLUoxetine HCL 10 MG CAPSULE PO SCH (12:08)
[2021-01-17] MEDS: GABAPENTIN 300 MG CAPSULE PO SCH ×2 (14:16→21:09)
[2021-01-17] MEDS: THIAMINE HCL 100 MG TABLET (FP) PO SCH (21:08)
[2021-01-17] MEDS: MELATONIN 5 MG TABLETS PO SCH (21:08)
[2021-01-18] MEDS: GABAPENTIN 300 MG CAPSULE PO SCH ×3 (06:31→22:21)
[2021-01-18] MEDS: NICOTINE 7 MG/24 HOURS TOPICAL PATCH TD SCH (10:14)
[2021-01-18] MEDS: PRENATAL VITAMINS W/ FOLIC ACID TABLET (FP) PO SCH (10:14)
[2021-01-18] MEDS: FLUoxetine HCL 10 MG CAPSULE PO SCH (10:15)
[2021-01-18] MEDS: THIAMINE HCL 100 MG TABLET (FP) PO SCH (22:21)
[2021-01-18] MEDS: MELATONIN 5 MG TABLETS PO SCH (22:22)
[2021-01-19] MEDS: GABAPENTIN 300 MG CAPSULE PO SCH ×3 (06:00→21:47)
[2021-01-19] MEDS: PRENATAL VITAMINS W/ FOLIC ACID TABLET (FP) PO SCH (09:51)
[2021-01-19] MEDS: FLUoxetine HCL 10 MG CAPSULE PO SCH (09:51)
[2021-01-19] MEDS: NICOTINE 7 MG/24 HOURS TOPICAL PATCH TD SCH (09:51)
[2021-01-19] MEDS: THIAMINE HCL 100 MG TABLET (FP) PO SCH (21:47)
[2021-01-19] MEDS: MELATONIN 5 MG TABLETS PO SCH (21:48)
[2021-01-20] MEDS ORDERED: MASKS NR ONE (03:49)
[2021-01-20] MEDS: GABAPENTIN 300 MG CAPSULE PO SCH ×4 (07:03→21:11)
[2021-01-20] MEDS: PRENATAL VITAMINS W/ FOLIC ACID TABLET (FP) PO SCH (09:45)
[2021-01-20] MEDS: FLUoxetine HCL 10 MG CAPSULE PO SCH (09:45)
[2021-01-20] MEDS: NICOTINE 7 MG/24 HOURS TOPICAL PATCH TD SCH (09:45)
[2021-01-20] MEDS: THIAMINE HCL 100 MG TABLET (FP) PO SCH (21:11)
[2021-01-20] MEDS: MELATONIN 5 MG TABLETS PO SCH (21:13)
[2021-01-21] MEDS: GABAPENTIN 300 MG CAPSULE PO SCH ×3 (06:12→22:02)
[2021-01-21] MEDS: FLUoxetine HCL 10 MG CAPSULE PO SCH (09:57)
[2021-01-21] MEDS: NICOTINE 7 MG/24 HOURS TOPICAL PATCH TD SCH (09:57)
[2021-01-21] MEDS: PRENATAL VITAMINS W/ FOLIC ACID TABLET (FP) PO SCH (09:57)
[2021-01-21] MEDS: THIAMINE HCL 100 MG TABLET (FP) PO SCH (22:02)
[2021-01-21] MEDS: MELATONIN 5 MG TABLETS PO SCH (22:02)
[2021-01-22] MEDS: GABAPENTIN 300 MG CAPSULE PO SCH ×3 (06:21→21:16)
[2021-01-22] MEDS: PRENATAL VITAMINS W/ FOLIC ACID TABLET (FP) PO SCH (09:47)
[2021-01-22] MEDS: NICOTINE 7 MG/24 HOURS TOPICAL PATCH TD SCH (09:47)
[2021-01-22] MEDS: FLUoxetine HCL 10 MG CAPSULE PO SCH (09:47)
[2021-01-22] MEDS: MELATONIN 5 MG TABLETS PO SCH (21:16)
[2021-01-22] MEDS: THIAMINE HCL 100 MG TABLET (FP) PO SCH (21:16)
[2021-01-23] MEDS: GABAPENTIN 300 MG CAPSULE PO SCH (06:37)
[2021-01-23] MEDS ORDERED: GABAPENTIN 400 MG CAPSULE PO SCH (09:00)
[2021-01-23] MEDS: PRENATAL VITAMINS W/ FOLIC ACID TABLET (FP) PO SCH (09:51)
[2021-01-23] MEDS: FLUoxetine HCL 20 MG CAPSULE PO SCH (09:52)
[2021-01-23] MEDS: NICOTINE 7 MG/24 HOURS TOPICAL PATCH TD SCH (09:52)
[2021-01-23] MEDS: GABAPENTIN 400 MG CAPSULE PO SCH ×2 (13:48→21:05)
[2021-01-23] MEDS: MELATONIN 5 MG TABLETS PO SCH (21:05)
[2021-01-23] MEDS: THIAMINE HCL 100 MG TABLET (FP) PO SCH (21:05)
[2021-01-24] MEDS: GABAPENTIN 400 MG CAPSULE PO SCH ×3 (06:18→21:12)
[2021-01-24] MEDS: FLUoxetine HCL 20 MG CAPSULE PO SCH (09:46)
[2021-01-24] MEDS: PRENATAL VITAMINS W/ FOLIC ACID TABLET (FP) PO SCH (09:46)
[2021-01-24] MEDS: NICOTINE 7 MG/24 HOURS TOPICAL PATCH TD SCH (09:47)
[2021-01-24] MEDS: THIAMINE HCL 100 MG TABLET (FP) PO SCH (21:12)
[2021-01-24] MEDS: MELATONIN 5 MG TABLETS PO SCH (21:13)
[2021-01-25] MEDS: GABAPENTIN 400 MG CAPSULE PO SCH ×3 (06:59→21:09)
[2021-01-25] MEDS: FLUoxetine HCL 20 MG CAPSULE PO SCH (09:47)
[2021-01-25] MEDS: PRENATAL VITAMINS W/ FOLIC ACID TABLET (FP) PO SCH (09:47)
[2021-01-25] MEDS: NICOTINE 7 MG/24 HOURS TOPICAL PATCH TD SCH (09:47)
[2021-01-25] MEDS: THIAMINE HCL 100 MG TABLET (FP) PO SCH (21:09)
[2021-01-25] MEDS: MELATONIN 5 MG TABLETS PO SCH (21:09)
[2021-01-26] MEDS: GABAPENTIN 400 MG CAPSULE PO SCH ×3 (06:16→21:12)
[2021-01-26] MEDS: NICOTINE 7 MG/24 HOURS TOPICAL PATCH TD SCH (09:35)
[2021-01-26] MEDS: PRENATAL VITAMINS W/ FOLIC ACID TABLET (FP) PO SCH (09:35)
[2021-01-26] MEDS: FLUoxetine HCL 20 MG CAPSULE PO SCH (09:35)
[2021-01-26] MEDS: THIAMINE HCL 100 MG TABLET (FP) PO SCH (21:13)
[2021-01-26] MEDS: MELATONIN 5 MG TABLETS PO SCH (21:36)
[2021-01-27] MEDS: GABAPENTIN 400 MG CAPSULE PO SCH ×3 (06:19→21:10)
[2021-01-27] MEDS: PRENATAL VITAMINS W/ FOLIC ACID TABLET (FP) PO SCH (09:44)
[2021-01-27] MEDS: FLUoxetine HCL 20 MG CAPSULE PO SCH (09:44)
[2021-01-27] MEDS: NICOTINE 7 MG/24 HOURS TOPICAL PATCH TD SCH (09:44)
[2021-01-27] MEDS ORDERED: MASKS NR ONE (17:54)
[2021-01-27] MEDS: THIAMINE HCL 100 MG TABLET (FP) PO SCH (21:10)
[2021-01-27] MEDS: MELATONIN 5 MG TABLETS PO SCH (21:10)
[2021-01-28] MEDS: GABAPENTIN 400 MG CAPSULE PO SCH ×3 (06:13→21:04)
[2021-01-28] MEDS: FLUoxetine HCL 20 MG CAPSULE PO SCH (09:42)
[2021-01-28] MEDS: NICOTINE 7 MG/24 HOURS TOPICAL PATCH TD SCH (09:42)
[2021-01-28] MEDS: PRENATAL VITAMINS W/ FOLIC ACID TABLET (FP) PO SCH (09:42)
[2021-01-28] MEDS: THIAMINE HCL 100 MG TABLET (FP) PO SCH (21:04)
[2021-01-28] MEDS: MELATONIN 5 MG TABLETS PO SCH (21:04)
[2021-01-29] MEDS: GABAPENTIN 400 MG CAPSULE PO SCH ×3 (06:32→22:10)
[2021-01-29] MEDS: FLUoxetine HCL 20 MG CAPSULE PO SCH (09:57)
[2021-01-29] MEDS: PRENATAL VITAMINS W/ FOLIC ACID TABLET (FP) PO SCH (09:57)
[2021-01-29] MEDS: NICOTINE 7 MG/24 HOURS TOPICAL PATCH TD SCH (09:58)
[2021-01-29] MEDS ORDERED: JANSSEN COVID-19 VAC,AD26/PF 0.5 ML IM ONE (11:00)
[2021-01-29] MEDS: MELATONIN 5 MG TABLETS PO SCH (22:10)
[2021-01-29] MEDS: THIAMINE HCL 100 MG TABLET (FP) PO SCH (23:18)
[2021-01-30] MEDS: GABAPENTIN 400 MG CAPSULE PO SCH ×3 (06:57→21:48)
[2021-01-30 07:10] VITALS: BMI 29.5
[2021-01-30] MEDS: PRENATAL VITAMINS W/ FOLIC ACID TABLET (FP) PO SCH (09:56)
[2021-01-30] MEDS: NICOTINE 7 MG/24 HOURS TOPICAL PATCH TD SCH (09:57)
[2021-01-30] MEDS: FLUoxetine HCL 20 MG CAPSULE PO SCH (09:57)
[2021-01-30] MEDS: MELATONIN 5 MG TABLETS PO SCH (21:48)
[2021-01-30] MEDS: THIAMINE HCL 100 MG TABLET (FP) PO SCH (21:48)
[2021-01-31] MEDS: GABAPENTIN 400 MG CAPSULE PO SCH ×3 (06:49→21:12)
[2021-01-31] MEDS: FLUoxetine HCL 20 MG CAPSULE PO SCH (10:11)
[2021-01-31] MEDS: PRENATAL VITAMINS W/ FOLIC ACID TABLET (FP) PO SCH (10:11)
[2021-01-31] MEDS: NICOTINE 7 MG/24 HOURS TOPICAL PATCH TD SCH (10:11)
[2021-01-31] MEDS: THIAMINE HCL 100 MG TABLET (FP) PO SCH (21:12)
[2021-01-31] MEDS: MELATONIN 5 MG TABLETS PO SCH (21:13)
[2021-02-01] MEDS: GABAPENTIN 400 MG CAPSULE PO SCH ×3 (06:51→21:59)
[2021-02-01] MEDS: PRENATAL VITAMINS W/ FOLIC ACID TABLET (FP) PO SCH (09:41)
[2021-02-01] MEDS: NICOTINE 7 MG/24 HOURS TOPICAL PATCH TD SCH (09:41)
[2021-02-01] MEDS: CITALOPRAM HYDROBROMIDE 10 MG TABLET PO SCH (10:28)
[2021-02-01] MEDS: THIAMINE HCL 100 MG TABLET (FP) PO SCH (21:59)
[2021-02-01] MEDS: MELATONIN 5 MG TABLETS PO SCH (21:59)
[2021-02-02] MEDS: GABAPENTIN 400 MG CAPSULE PO SCH ×3 (06:13→22:01)
[2021-02-02] MEDS ORDERED: PT OWN MED DRAWER 7, Y5N ONE (08:25)
[2021-02-02] MEDS: NICOTINE 7 MG/24 HOURS TOPICAL PATCH TD SCH (10:14)
[2021-02-02] MEDS: CITALOPRAM HYDROBROMIDE 10 MG TABLET PO SCH (10:14)
[2021-02-02] MEDS: PRENATAL VITAMINS W/ FOLIC ACID TABLET (FP) PO SCH (10:14)
[2021-02-02] MEDS: THIAMINE HCL 100 MG TABLET (FP) PO SCH (22:01)
[2021-02-02] MEDS: MELATONIN 5 MG TABLETS PO SCH (22:01)
[2021-02-03] MEDS: GABAPENTIN 400 MG CAPSULE PO SCH ×3 (06:30→21:07)
[2021-02-03] MEDS: PRENATAL VITAMINS W/ FOLIC ACID TABLET (FP) PO SCH (09:31)
[2021-02-03] MEDS: CITALOPRAM HYDROBROMIDE 10 MG TABLET PO SCH (09:31)
[2021-02-03] MEDS: NICOTINE 7 MG/24 HOURS TOPICAL PATCH TD SCH (09:32)
[2021-02-03] MEDS: THIAMINE HCL 100 MG TABLET (FP) PO SCH (21:07)
[2021-02-03] MEDS: MELATONIN 5 MG TABLETS PO SCH (21:07)
[2021-02-04] MEDS: GABAPENTIN 400 MG CAPSULE PO SCH ×3 (07:21→21:03)
[2021-02-04] MEDS ORDERED: PT OWN MED DRAWER 7, Y5N ONE (08:37)
[2021-02-04] MEDS: PRENATAL VITAMINS W/ FOLIC ACID TABLET (FP) PO SCH (09:53)
[2021-02-04] MEDS: CITALOPRAM HYDROBROMIDE 10 MG TABLET PO SCH (09:53)
[2021-02-04] MEDS: NICOTINE 7 MG/24 HOURS TOPICAL PATCH TD SCH (09:53)
[2021-02-04] MEDS: MELATONIN 5 MG TABLETS PO SCH (21:03)
[2021-02-04] MEDS: THIAMINE HCL 100 MG TABLET (FP) PO SCH (21:03)
[2021-02-05] MEDS: GABAPENTIN 400 MG CAPSULE PO SCH ×3 (06:07→22:14)
[2021-02-05] MEDS: PRENATAL VITAMINS W/ FOLIC ACID TABLET (FP) PO SCH (10:16)
[2021-02-05] MEDS: CITALOPRAM HYDROBROMIDE 10 MG TABLET PO SCH (10:16)
[2021-02-05] MEDS: NICOTINE 7 MG/24 HOURS TOPICAL PATCH TD SCH (10:17)
[2021-02-05] MEDS: MELATONIN 5 MG TABLETS PO SCH (22:14)
[2021-02-05] MEDS: THIAMINE HCL 100 MG TABLET (FP) PO SCH (22:14)
[2021-02-06] MEDS: GABAPENTIN 400 MG CAPSULE PO SCH ×3 (06:34→21:35)
[2021-02-06] MEDS: PRENATAL VITAMINS W/ FOLIC ACID TABLET (FP) PO SCH (10:13)
[2021-02-06] MEDS: CITALOPRAM HYDROBROMIDE 10 MG TABLET PO SCH (10:13)
[2021-02-06] MEDS: NICOTINE 7 MG/24 HOURS TOPICAL PATCH TD SCH (10:14)
[2021-02-06] MEDS: THIAMINE HCL 100 MG TABLET (FP) PO SCH (21:35)
[2021-02-06] MEDS: MELATONIN 5 MG TABLETS PO SCH (21:35)
[2021-02-07] MEDS: GABAPENTIN 400 MG CAPSULE PO SCH ×3 (06:43→21:21)
[2021-02-07] MEDS: PRENATAL VITAMINS W/ FOLIC ACID TABLET (FP) PO SCH (09:06)
[2021-02-07] MEDS: CITALOPRAM HYDROBROMIDE 10 MG TABLET PO SCH (09:06)
[2021-02-07] MEDS: NICOTINE 7 MG/24 HOURS TOPICAL PATCH TD SCH (09:07)
[2021-02-07] MEDS: MELATONIN 5 MG TABLETS PO SCH (21:21)
[2021-02-07] MEDS: THIAMINE HCL 100 MG TABLET (FP) PO SCH (21:21)
[2021-02-08] MEDS: GABAPENTIN 400 MG CAPSULE PO SCH ×3 (06:44→21:14)
[2021-02-08] MEDS ORDERED: PT OWN MED DRAWER 7, Y5N ONE (08:41)
[2021-02-08] MEDS: CITALOPRAM HYDROBROMIDE 10 MG TABLET PO SCH (10:01)
[2021-02-08] MEDS: PRENATAL VITAMINS W/ FOLIC ACID TABLET (FP) PO SCH (10:01)
[2021-02-08] MEDS: NICOTINE 7 MG/24 HOURS TOPICAL PATCH TD SCH (10:01)
[2021-02-08] MEDS: MELATONIN 5 MG TABLETS PO SCH (21:14)
[2021-02-08] MEDS: THIAMINE HCL 100 MG TABLET (FP) PO SCH (21:14)
[2021-02-09] MEDS: GABAPENTIN 400 MG CAPSULE PO SCH ×3 (06:19→21:22)
[2021-02-09] MEDS ORDERED: PT OWN MED DRAWER 7, Y5N ONE (09:05)
[2021-02-09] MEDS: PRENATAL VITAMINS W/ FOLIC ACID TABLET (FP) PO SCH (09:59)
[2021-02-09] MEDS: CITALOPRAM HYDROBROMIDE 10 MG TABLET PO SCH (10:00)
[2021-02-09] MEDS: NICOTINE 7 MG/24 HOURS TOPICAL PATCH TD SCH (10:01)
[2021-02-09] MEDS: THIAMINE HCL 100 MG TABLET (FP) PO SCH (21:22)
[2021-02-09] MEDS: MELATONIN 5 MG TABLETS PO SCH (21:22)
[2021-02-10] MEDS: GABAPENTIN 400 MG CAPSULE PO SCH ×3 (06:19→21:18)
[2021-02-10] MEDS: CITALOPRAM HYDROBROMIDE 10 MG TABLET PO SCH (09:50)
[2021-02-10] MEDS: PRENATAL VITAMINS W/ FOLIC ACID TABLET (FP) PO SCH (09:50)
[2021-02-10] MEDS: NICOTINE 7 MG/24 HOURS TOPICAL PATCH TD SCH (09:50)
[2021-02-10] MEDS: MELATONIN 5 MG TABLETS PO SCH (21:18)
[2021-02-10] MEDS: THIAMINE HCL 100 MG TABLET (FP) PO SCH (21:18)
[2021-02-11] MEDS: GABAPENTIN 400 MG CAPSULE PO SCH ×3 (06:08→21:17)
[2021-02-11 07:01] VITALS: TEMP 97.1
[2021-02-11] MEDS: PRENATAL VITAMINS W/ FOLIC ACID TABLET (FP) PO SCH (09:48)
[2021-02-11] MEDS: CITALOPRAM HYDROBROMIDE 10 MG TABLET PO SCH (09:48)
[2021-02-11] MEDS: NICOTINE 7 MG/24 HOURS TOPICAL PATCH TD SCH (09:49)
[2021-02-11] MEDS: THIAMINE HCL 100 MG TABLET (FP) PO SCH (21:17)
[2021-02-11] MEDS: MELATONIN 5 MG TABLETS PO SCH (21:17)
[2021-02-12 06:32] VITALS: BP 100/68; PULSE 67
[2021-02-12] MEDS: GABAPENTIN 400 MG CAPSULE PO SCH (06:37)
[2021-02-12] MEDS: NICOTINE 7 MG/24 HOURS TOPICAL PATCH TD SCH (09:17)
[2021-02-12] MEDS: CITALOPRAM HYDROBROMIDE 10 MG TABLET PO SCH (09:17)
[2021-02-12] MEDS: PRENATAL VITAMINS W/ FOLIC ACID TABLET (FP) PO SCH (09:17)
== END 2021-02-12 09:50 | disposition home or self-care (01) | DRG 772 ==
LOC: YASAS 14:15 → Y5N 14:16
PROVIDERS: ADMIT Allergy & Immunology; ATTEND Allergy & Immunology
PROC: HZ42ZZZ Group Counseling for Substance Abuse Treatment, Cognitive-Behavioral (ICD-10-PCS; principal; 2021-01-15)
DX: F10.20 Alcohol dependence, uncomplicated (principal); F10.280 Alcohol dependence with alcohol-induced anxiety disorder; F10.24 Alcohol dependence with alcohol-induced mood disorder; F41.9 Anxiety disorder, unspecified; F42.9 Obsessive-compulsive disorder, unspecified; M45.4 Ankylosing spondylitis of thoracic region; M54.50 Low back pain, unspecified; G89.29 Other chronic pain
CPT/HCPCS: 0031A; 91303

== ENCOUNTER 2021-03-15 12:12 | Inpatient (IN) | payer OTHER ==
[2021-03-15] MEDS ORDERED: ONDANSETRON *ODT* 4 MG TABLET SL PRN (13:09)
[2021-03-15] MEDS ORDERED: MENTHOL/PHENOL 1 EACH UD MM PRN (13:09)
[2021-03-15] MEDS ORDERED: MAGNESIUM HYDROX 2400MG/30ML ORAL SUSPENSION 30 ML CUP PO PRN (13:09)
[2021-03-15] MEDS ORDERED: MAG HYDROX/AL HYDROX/SIMETH 30 ML UNIT-DOSE CUP PO PRN (13:09)
[2021-03-15] MEDS ORDERED: BISMUTH SUBSALICYLATE 262 MG/15 ML BTL PO PRN (13:09)
[2021-03-15] MEDS ORDERED: ACETAMINOPHEN 325 MG TABLET (FP) PO PRN ×2 (13:09)
[2021-03-15] MEDS ORDERED: IBUPROFEN 400 MG TABLET (FP) PO PRN (13:09)
[2021-03-15] MEDS ORDERED: NICOTINE 10 MG CARTRIDGE (INHALER) IH PRN (13:09)
[2021-03-15] MEDS ORDERED: MAGNESIUM CITRATE 300 ML BOTTLE PO PRN (13:09)
[2021-03-15 13:25] VITALS: BMI 30.5
[2021-03-15] MEDS: hydrOXYzine PAMOATE 25 MG CAPSULE (FP) PO SCH ×3 (15:37→22:47)
[2021-03-15] MEDS: MINERAL OIL/PETROLAT/WATER TOPICAL CREAM 113 GM JAR TP SCH (15:38)
[2021-03-15] MEDS: THIAMINE HCL 100 MG TABLET (FP) PO SCH (22:47)
[2021-03-16] MEDS: MELATONIN 5 MG TABLETS PO SCH ×2 (00:04→22:11)
[2021-03-16] MEDS: hydrOXYzine PAMOATE 25 MG CAPSULE (FP) PO SCH ×5 (06:03→22:13)
[2021-03-16] MEDS ORDERED: diazePAM 5 MG TABLET PO PRN (09:35)
[2021-03-16] MEDS: PRENATAL VITAMINS W/ FOLIC ACID TABLET (FP) PO SCH (11:04)
[2021-03-16] MEDS: ARIPiprazole 10 MG TABLET PO SCH (11:04)
[2021-03-16] MEDS: MINERAL OIL/PETROLAT/WATER TOPICAL CREAM 113 GM JAR TP SCH (11:06)
[2021-03-16 11:40] LABS: HEMATOCRIT 45.6 % (35.4-49); HEMOGLOBIN 15.5 GM/dL (11.7-16.9); MCH 32.3 pg (25.7-33.7); MCHC 34.1 g/dl (32.0-35.9); MEAN CELL VOLUME 94.5 fl (80-96); MEAN PLT VOLUME 8.7 fl (7.5-11.1); PLATELET COUNT 333 10^3/uL (134-434); RBC 4.82 M/mm3 (4.00-5.60); RDW 13.8 % (11.9-15.9); WHITE BLOOD COUNT 6.3 K/mm3 (4.0-10.0)
[2021-03-16 11:49] LABS: BLOOD UREA NITROGEN 12.5 mg/dL (7-18); CALCIUM 9.1 mg/dL (8.5-10.1)
[2021-03-16 11:53] LABS: CREATININE 0.9 mg/dL (0.55-1.3)
[2021-03-16 11:54] LABS: BILIRUBIN,TOTAL 1.4 mg/dL (0.2-1); TOT PROT 7.6 g/dl (6.4-8.2)
[2021-03-16] MEDS: diazePAM 5 MG TABLET PO SCH ×3 (12:19→22:13)
[2021-03-16] MEDS: GABAPENTIN 400 MG CAPSULE PO SCH ×2 (13:41→22:11)
[2021-03-16] MEDS: DIPHENOXYLATE 2.5/ATROPINE.025 1 COMBO TABLET PO PRN (15:25)
[2021-03-16] MEDS: THIAMINE HCL 100 MG TABLET (FP) PO SCH (22:11)
[2021-03-17] MEDS: hydrOXYzine PAMOATE 25 MG CAPSULE (FP) PO SCH ×5 (05:31→22:32)
[2021-03-17] MEDS: diazePAM 5 MG TABLET PO SCH ×4 (05:32→22:31)
[2021-03-17] MEDS: GABAPENTIN 400 MG CAPSULE PO SCH ×3 (05:32→22:32)
[2021-03-17] MEDS: DIPHENOXYLATE 2.5/ATROPINE.025 1 COMBO TABLET PO PRN (06:28)
[2021-03-17] MEDS ORDERED: ARIPiprazole 5 MG TABLET ONE (09:40)
[2021-03-17] MEDS: MINERAL OIL/PETROLAT/WATER TOPICAL CREAM 113 GM JAR TP SCH (10:28)
[2021-03-17] MEDS: ARIPiprazole 10 MG TABLET PO SCH (10:28)
[2021-03-17] MEDS: METHOCARBAMOL 500 MG TABLET PO PRN (10:28)
[2021-03-17] MEDS: PRENATAL VITAMINS W/ FOLIC ACID TABLET (FP) PO SCH (10:29)
[2021-03-17] MEDS: THIAMINE HCL 100 MG TABLET (FP) PO SCH (22:32)
[2021-03-17] MEDS: MELATONIN 5 MG TABLETS PO SCH (22:32)
[2021-03-18] MEDS: hydrOXYzine PAMOATE 25 MG CAPSULE (FP) PO SCH ×5 (05:55→23:11)
[2021-03-18] MEDS: diazePAM 5 MG TABLET PO SCH ×3 (05:55→22:35)
[2021-03-18] MEDS: GABAPENTIN 400 MG CAPSULE PO SCH ×3 (05:56→22:35)
[2021-03-18] MEDS: METHOCARBAMOL 500 MG TABLET PO PRN (10:52)
[2021-03-18] MEDS: PRENATAL VITAMINS W/ FOLIC ACID TABLET (FP) PO SCH (10:53)
[2021-03-18] MEDS: MINERAL OIL/PETROLAT/WATER TOPICAL CREAM 113 GM JAR TP SCH (10:53)
[2021-03-18] MEDS: ARIPiprazole 10 MG TABLET PO SCH (11:22)
[2021-03-18] MEDS: THIAMINE HCL 100 MG TABLET (FP) PO SCH (22:34)
[2021-03-18] MEDS: MELATONIN 5 MG TABLETS PO SCH (22:37)
[2021-03-19] MEDS: GABAPENTIN 400 MG CAPSULE PO SCH ×3 (06:06→22:14)
[2021-03-19] MEDS: hydrOXYzine PAMOATE 25 MG CAPSULE (FP) PO SCH ×5 (07:03→22:15)
[2021-03-19] MEDS: diazePAM 5 MG TABLET PO SCH ×2 (07:03→18:02)
[2021-03-19] MEDS: ARIPiprazole 10 MG TABLET PO SCH (10:24)
[2021-03-19] MEDS: PRENATAL VITAMINS W/ FOLIC ACID TABLET (FP) PO SCH (10:24)
[2021-03-19] MEDS: MINERAL OIL/PETROLAT/WATER TOPICAL CREAM 113 GM JAR TP SCH (10:25)
[2021-03-19] MEDS: METHOCARBAMOL 500 MG TABLET PO PRN (14:35)
[2021-03-19] MEDS: THIAMINE HCL 100 MG TABLET (FP) PO SCH (22:14)
[2021-03-19] MEDS: MELATONIN 5 MG TABLETS PO SCH (22:14)
[2021-03-20] MEDS: GABAPENTIN 400 MG CAPSULE PO SCH (05:35)
[2021-03-20] MEDS: hydrOXYzine PAMOATE 25 MG CAPSULE (FP) PO SCH ×2 (05:38→10:05)
[2021-03-20] MEDS ORDERED: diazePAM 5 MG TABLET PO ONE (06:00)
[2021-03-20] MEDS: METHOCARBAMOL 500 MG TABLET PO PRN (07:21)
[2021-03-20 09:47] VITALS: BP 137/78; PULSE 101; TEMP 98.4
[2021-03-20] MEDS: ARIPiprazole 10 MG TABLET PO SCH (10:04)
[2021-03-20] MEDS: PRENATAL VITAMINS W/ FOLIC ACID TABLET (FP) PO SCH (10:04)
[2021-03-20] MEDS: MINERAL OIL/PETROLAT/WATER TOPICAL CREAM 113 GM JAR TP SCH (10:04)
== END 2021-03-20 12:25 | disposition other institution (70) | DRG 775 ==
LOC: YASAS 12:12 → Y6N 13:58
PROVIDERS: ADMIT Allergy & Immunology; ATTEND Allergy & Immunology
PROC: HZ2ZZZZ Detoxification Services for Substance Abuse Treatment (ICD-10-PCS; principal; 2021-03-15)
DX: F10.230 Alcohol dependence with withdrawal, uncomplicated (principal); F10.282 Alcohol dependence with alcohol-induced sleep disorder; F32.A Depression, unspecified; F41.8 Other specified anxiety disorders; L25.9 Unspecified contact dermatitis, unspecified cause; E66.9 Obesity, unspecified; Z68.30 Body mass index [BMI] 30.0-30.9, adult
CPT/HCPCS: 36415; 80053; 85027; 86780; C9803; U0003; U0005

== ENCOUNTER 2021-03-20 12:16 | Inpatient (IN) | payer OTHER ==
[2021-03-20] MEDS ORDERED: P-EPHED 60MG/TRIPROLIDI 2.5MG TABLET PO PRN (12:57)
[2021-03-20] MEDS ORDERED: ACETAMINOPHEN 325 MG TABLET (FP) PO PRN (12:57)
[2021-03-20] MEDS ORDERED: LOPERAMIDE HCL 2 MG CAPSULE PO PRN (12:57)
[2021-03-20] MEDS ORDERED: MAG HYDROX/AL HYDROX/SIMETH 30 ML UNIT-DOSE CUP PO PRN (12:57)
[2021-03-20] MEDS ORDERED: MENTHOL/PHENOL 1 EACH UD MM PRN (12:57)
[2021-03-20] MEDS ORDERED: MAGNESIUM HYDROX 2400MG/30ML ORAL SUSPENSION 30 ML CUP PO PRN (12:57)
[2021-03-20] MEDS ORDERED: MAGNESIUM CITRATE 300 ML BOTTLE PO PRN (12:57)
[2021-03-20] MEDS ORDERED: guaiFENesin 200 MG/10 ML 10 ML UNIT-DOSE CUPS PO PRN (12:57)
[2021-03-20] MEDS: GABAPENTIN 400 MG CAPSULE PO SCH ×2 (14:20→21:27)
[2021-03-20] MEDS: MELATONIN 5 MG TABLETS PO SCH (21:27)
[2021-03-20] MEDS: THIAMINE HCL 100 MG TABLET (FP) PO SCH (21:27)
[2021-03-21] MEDS: GABAPENTIN 400 MG CAPSULE PO SCH ×3 (06:15→21:21)
[2021-03-21] MEDS: IBUPROFEN 400 MG TABLET (FP) PO PRN (08:27)
[2021-03-21] MEDS: ARIPiprazole 10 MG TABLET PO SCH (10:06)
[2021-03-21] MEDS: PRENATAL VITAMINS W/ FOLIC ACID TABLET (FP) PO SCH (10:06)
[2021-03-21] MEDS: THIAMINE HCL 100 MG TABLET (FP) PO SCH (21:20)
[2021-03-21] MEDS: MELATONIN 5 MG TABLETS PO SCH (21:21)
[2021-03-22] MEDS: GABAPENTIN 400 MG CAPSULE PO SCH ×3 (06:13→21:39)
[2021-03-22] MEDS: IBUPROFEN 400 MG TABLET (FP) PO PRN ×2 (08:06→17:38)
[2021-03-22] MEDS: PRENATAL VITAMINS W/ FOLIC ACID TABLET (FP) PO SCH (10:15)
[2021-03-22] MEDS: ARIPiprazole 10 MG TABLET PO SCH (10:16)
[2021-03-22] MEDS: THIAMINE HCL 100 MG TABLET (FP) PO SCH (21:39)
[2021-03-22] MEDS: MELATONIN 5 MG TABLETS PO SCH (21:39)
[2021-03-23] MEDS: GABAPENTIN 400 MG CAPSULE PO SCH ×3 (06:40→21:42)
[2021-03-23] MEDS: IBUPROFEN 400 MG TABLET (FP) PO PRN (08:40)
[2021-03-23] MEDS: ARIPiprazole 10 MG TABLET PO SCH (10:16)
[2021-03-23] MEDS: PRENATAL VITAMINS W/ FOLIC ACID TABLET (FP) PO SCH (10:17)
[2021-03-23] MEDS: MELATONIN 5 MG TABLETS PO SCH (21:42)
[2021-03-23] MEDS: THIAMINE HCL 100 MG TABLET (FP) PO SCH (21:42)
[2021-03-24] MEDS: GABAPENTIN 400 MG CAPSULE PO SCH ×3 (06:26→21:43)
[2021-03-24] MEDS: ARIPiprazole 10 MG TABLET PO SCH (10:46)
[2021-03-24] MEDS: PRENATAL VITAMINS W/ FOLIC ACID TABLET (FP) PO SCH (10:46)
[2021-03-24] MEDS: THIAMINE HCL 100 MG TABLET (FP) PO SCH (21:42)
[2021-03-24] MEDS: MELATONIN 5 MG TABLETS PO SCH (21:42)
[2021-03-25] MEDS: GABAPENTIN 400 MG CAPSULE PO SCH ×3 (06:10→22:57)
[2021-03-25] MEDS: PRENATAL VITAMINS W/ FOLIC ACID TABLET (FP) PO SCH (10:02)
[2021-03-25] MEDS: ARIPiprazole 10 MG TABLET PO SCH (10:02)
[2021-03-25] MEDS: MELATONIN 5 MG TABLETS PO SCH (22:57)
[2021-03-25] MEDS: THIAMINE HCL 100 MG TABLET (FP) PO SCH (22:57)
[2021-03-26] MEDS: GABAPENTIN 400 MG CAPSULE PO SCH ×3 (06:02→21:15)
[2021-03-26] MEDS: PRENATAL VITAMINS W/ FOLIC ACID TABLET (FP) PO SCH (10:27)
[2021-03-26] MEDS: ARIPiprazole 10 MG TABLET PO SCH (10:27)
[2021-03-26] MEDS: MINERAL OIL/PETROLAT/WATER TOPICAL CREAM 113 GM JAR TP SCH ×2 (13:54→21:16)
[2021-03-26] MEDS: THIAMINE HCL 100 MG TABLET (FP) PO SCH (21:15)
[2021-03-26] MEDS: MELATONIN 5 MG TABLETS PO SCH (21:15)
[2021-03-27] MEDS: GABAPENTIN 400 MG CAPSULE PO SCH (06:18)
[2021-03-27] MEDS: MINERAL OIL/PETROLAT/WATER TOPICAL CREAM 113 GM JAR TP SCH ×2 (09:56→21:22)
[2021-03-27] MEDS: PRENATAL VITAMINS W/ FOLIC ACID TABLET (FP) PO SCH (09:56)
[2021-03-27] MEDS: ARIPiprazole 10 MG TABLET PO SCH (09:57)
[2021-03-27] MEDS: GABAPENTIN 300 MG CAPSULE PO SCH ×2 (14:20→21:21)
[2021-03-27] MEDS: MELATONIN 5 MG TABLETS PO SCH (21:21)
[2021-03-27] MEDS: THIAMINE HCL 100 MG TABLET (FP) PO SCH (21:21)
[2021-03-28] MEDS: GABAPENTIN 300 MG CAPSULE PO SCH ×3 (06:33→22:43)
[2021-03-28] MEDS ORDERED: ARIPiprazole 15 MG TABLET PO SCH (10:00)
[2021-03-28] MEDS: PRENATAL VITAMINS W/ FOLIC ACID TABLET (FP) PO SCH (10:51)
[2021-03-28] MEDS: MINERAL OIL/PETROLAT/WATER TOPICAL CREAM 113 GM JAR TP SCH ×2 (10:51→22:43)
[2021-03-28 14:35] VITALS: BP 121/83; PULSE 86; TEMP 98.8
[2021-03-28] MEDS: THIAMINE HCL 100 MG TABLET (FP) PO SCH (22:43)
[2021-03-28] MEDS: MELATONIN 5 MG TABLETS PO SCH (22:43)
== END 2021-03-28 23:33 | disposition short-term general hospital (02) | DRG 772 ==
LOC: YASAS 12:16 → Y3W 12:18
PROVIDERS: ADMIT Allergy & Immunology; ATTEND Allergy & Immunology
PROC: HZ42ZZZ Group Counseling for Substance Abuse Treatment, Cognitive-Behavioral (ICD-10-PCS; principal; 2021-03-20)
DX: F10.20 Alcohol dependence, uncomplicated (principal); F19.24 Other psychoactive substance dependence with psychoactive substance-induced mood disorder; F33.9 Major depressive disorder, recurrent, unspecified; F42.9 Obsessive-compulsive disorder, unspecified; F41.9 Anxiety disorder, unspecified; M54.59 Other low back pain; G89.29 Other chronic pain; R20.0 Anesthesia of skin; R20.2 Paresthesia of skin; R53.1 Weakness; Z56.0 Unemployment, unspecified; Z59.00 Homelessness unspecified

== ENCOUNTER 2021-03-28 16:16 | Inpatient (IN) | payer OTHER ==
[2021-03-28 16:27] VITALS: BMI 30.8
[2021-03-28 18:54] LABS: BASO % 0.7 % (0-2.0); EOS % 1.3 % (0-4.5); HEMATOCRIT 41.6 % (35.4-49); HEMOGLOBIN 14.1 GM/dL (11.7-16.9); LYMPH % 21.5 % (8-40); MCH 31.7 pg (25.7-33.7); MCHC 33.9 g/dl (32.0-35.9); MEAN CELL VOLUME 93.5 fl (80-96); MEAN PLT VOLUME 7.7 fl (7.5-11.1); MONO % 5.8 % (3.8-10.2); NEUT % 70.7 % (42.8-82.8); PLATELET COUNT 310 10^3/uL (134-434); RBC 4.45 M/mm3 (4.00-5.60); RDW 13.9 % (11.9-15.9); WHITE BLOOD COUNT 10.5 K/mm3 (4.0-10.0)
[2021-03-28 19:14] LABS: ALBUMIN 3.8 g/dl (3.4-5.0); BLOOD UREA NITROGEN 14.6 mg/dL (7-18)
[2021-03-28 19:17] LABS: CREATININE 0.9 mg/dL (0.55-1.3)
[2021-03-28 19:19] LABS: BILIRUBIN,TOTAL 0.2 mg/dL (0.2-1); TOT PROT 6.9 g/dl (6.4-8.2)
[2021-03-28 20:04] LABS: CSF APPEARANCE CLEAR (CLEAR); CSF COLOR COLORLESS (COLORLESS)
[2021-03-28 20:05] LABS: CSF WBC 1 mm3 (0-5)
[2021-03-28 20:16] LABS: BF GLUCOSE (CSF ONLY) 56 mg/dL (40-70)
[2021-03-28] MEDS ORDERED: ACETAMINOPHEN 325 MG TABLET (FP) ONE (23:44)
[2021-03-29] MEDS: ACETAMINOPHEN 325 MG TABLET (FP) PO PRN ×3 (04:50→21:59)
[2021-03-29 07:43] LABS: BASO % 0.7 % (0-2.0); EOS % 1.1 % (0-4.5); HEMOGLOBIN 14.1 GM/dL (11.7-16.9); MCH 32.2 pg (25.7-33.7); MCHC 34.5 g/dl (32.0-35.9); MEAN CELL VOLUME 93.4 fl (80-96); MEAN PLT VOLUME 7.7 fl (7.5-11.1); MONO % 7.1 % (3.8-10.2); NEUT % 68.1 % (42.8-82.8); PLATELET COUNT 317 10^3/uL (134-434); RBC 4.39 M/mm3 (4.00-5.60); RDW 13.6 % (11.9-15.9)
[2021-03-29 07:50] LABS: CALCIUM 8.9 mg/dL (8.5-10.1)
[2021-03-29 07:51] LABS: BLOOD UREA NITROGEN 10.8 mg/dL (7-18); MAGNESIUM 2.1 mg/dL (1.8-2.4)
[2021-03-29 07:53] LABS: PHOSPHOROUS 3.6 mg/dL (2.5-4.9)
[2021-03-29 07:54] LABS: ALBUMIN 3.4 g/dl (3.4-5.0); CREATININE 0.9 mg/dL (0.55-1.3)
[2021-03-29 07:55] LABS: BILIRUBIN,TOTAL 0.6 mg/dL (0.2-1); TOT PROT 6.7 g/dl (6.4-8.2)
[2021-03-29] MEDS ORDERED: FOLIC ACID 1 MG TABLET (FP) ONE (08:39)
[2021-03-29] MEDS ORDERED: ENOXAPARIN NA (PORCINE) 40 MG/0.4 ML DISP.SYRIN SQ ONE (08:39)
[2021-03-29] MEDS ORDERED: THIAMINE HCL 100 MG TABLET (FP) ONE (08:39)
[2021-03-29] MEDS: FOLIC ACID 1 MG TABLET (FP) PO SCH (09:00)
[2021-03-29] MEDS: ENOXAPARIN NA (PORCINE) 40 MG/0.4 ML DISP.SYRIN SQ SCH (09:10)
[2021-03-29 09:13] LABS: ERYTHROCYTE SEDIMENTATION RATE 5 mm/hr (0-10)
[2021-03-29] MEDS: THIAMINE HCL 100 MG TABLET (FP) PO SCH (09:15)
[2021-03-29] MEDS ORDERED: ACETAMINOPHEN 325 MG TABLET (FP) ONE (13:24)
[2021-03-29] MEDS ORDERED: GABAPENTIN 400 MG CAPSULE PO SCH ×2 (16:00→17:29)
[2021-03-30] MEDS: ACETAMINOPHEN 325 MG TABLET (FP) PO PRN (06:22)
[2021-03-30 10:00] LABS: HEMATOCRIT 42.5 % (35.4-49); HEMOGLOBIN 14.8 GM/dL (11.7-16.9); MCH 32.4 pg (25.7-33.7); MCHC 34.9 g/dl (32.0-35.9); MEAN CELL VOLUME 92.9 fl (80-96); MEAN PLT VOLUME 8.2 fl (7.5-11.1); PLATELET COUNT 353 10^3/uL (134-434); RBC 4.58 M/mm3 (4.00-5.60); RDW 13.6 % (11.9-15.9); WHITE BLOOD COUNT 7.6 K/mm3 (4.0-10.0)
[2021-03-30 11:05] LABS: CALCIUM 8.9 mg/dL (8.5-10.1)
[2021-03-30 11:06] LABS: BLOOD UREA NITROGEN 10.1 mg/dL (7-18)
[2021-03-30] MEDS ORDERED: PT OWN MED DRAWER 7, Y5N ONE (11:08)
[2021-03-30 11:09] LABS: CREATININE 0.8 mg/dL (0.55-1.3)
[2021-03-30] MEDS: ENOXAPARIN NA (PORCINE) 40 MG/0.4 ML DISP.SYRIN SQ SCH (11:14)
[2021-03-30] MEDS: FOLIC ACID 1 MG TABLET (FP) PO SCH (11:14)
[2021-03-30] MEDS: THIAMINE HCL 100 MG TABLET (FP) PO SCH (11:14)
[2021-03-30] MEDS: ARIPiprazole 15 MG TABLET PO SCH (11:14)
[2021-03-30] MEDS: GABAPENTIN 300 MG CAPSULE PO SCH ×2 (13:48→22:15)
[2021-03-31] MEDS: ACETAMINOPHEN 325 MG TABLET (FP) PO PRN (05:40)
[2021-03-31] MEDS: GABAPENTIN 300 MG CAPSULE PO SCH ×3 (05:40→22:03)
[2021-03-31] MEDS ORDERED: PT OWN MED DRAWER 7, Y5N ONE (09:15)
[2021-03-31] MEDS: ENOXAPARIN NA (PORCINE) 40 MG/0.4 ML DISP.SYRIN SQ SCH ×2 (09:21→09:26)
[2021-03-31] MEDS: FOLIC ACID 1 MG TABLET (FP) PO SCH (09:21)
[2021-03-31] MEDS: THIAMINE HCL 100 MG TABLET (FP) PO SCH (09:21)
[2021-03-31] MEDS: ARIPiprazole 15 MG TABLET PO SCH (09:21)
[2021-03-31 09:36] LABS: HEMATOCRIT 42.5 % (35.4-49); HEMOGLOBIN 14.7 GM/dL (11.7-16.9); MCH 32.4 pg (25.7-33.7); MCHC 34.5 g/dl (32.0-35.9); PLATELET COUNT 364 10^3/uL (134-434); RBC 4.52 M/mm3 (4.00-5.60); RDW 13.8 % (11.9-15.9); WHITE BLOOD COUNT 7.3 K/mm3 (4.0-10.0)
[2021-03-31 10:14] LABS: CALCIUM 8.6 mg/dL (8.5-10.1)
[2021-03-31 10:15] LABS: ALBUMIN 3.6 g/dl (3.4-5.0); BLOOD UREA NITROGEN 12.3 mg/dL (7-18); MAGNESIUM 2.4 mg/dL (1.8-2.4)
[2021-03-31 10:17] LABS: PHOSPHOROUS 3.4 mg/dL (2.5-4.9)
[2021-03-31 10:19] LABS: BILIRUBIN,TOTAL 0.6 mg/dL (0.2-1); TOT PROT 6.9 g/dl (6.4-8.2)
[2021-03-31 12:34] LABS: HIV INTERPRETATION NEGATIVE (NEGATIVE)
[2021-03-31] MEDS: CYANOCOBALAMIN (VITAMIN B-12) 1000 MCG/1 ML VIAL IM SCH (17:45)
[2021-04-01] MEDS: ACETAMINOPHEN 325 MG TABLET (FP) PO PRN ×2 (03:27→10:29)
[2021-04-01] MEDS: GABAPENTIN 300 MG CAPSULE PO SCH ×3 (05:58→21:43)
[2021-04-01] MEDS: FOLIC ACID 1 MG TABLET (FP) PO SCH (10:18)
[2021-04-01] MEDS: THIAMINE HCL 100 MG TABLET (FP) PO SCH (10:19)
[2021-04-01] MEDS: ENOXAPARIN NA (PORCINE) 40 MG/0.4 ML DISP.SYRIN SQ SCH (10:19)
[2021-04-01] MEDS: CYANOCOBALAMIN (VITAMIN B-12) 1000 MCG/1 ML VIAL IM SCH (10:19)
[2021-04-01] MEDS: ARIPiprazole 15 MG TABLET PO SCH (10:21)
[2021-04-01 10:22] LABS: BASO % 1.1 % (0-2.0); HEMATOCRIT 43.8 % (35.4-49); HEMOGLOBIN 14.9 GM/dL (11.7-16.9); LYMPH % 32.9 % (8-40); MCH 32.3 pg (25.7-33.7); MEAN PLT VOLUME 8.2 fl (7.5-11.1); MONO % 6.1 % (3.8-10.2); NEUT % 58.9 % (42.8-82.8); PLATELET COUNT 365 10^3/uL (134-434); RBC 4.61 M/mm3 (4.00-5.60); RDW 13.5 % (11.9-15.9); WHITE BLOOD COUNT 7.1 K/mm3 (4.0-10.0)
[2021-04-01 10:48] LABS: ALBUMIN 3.7 g/dl (3.4-5.0); BLOOD UREA NITROGEN 14.5 mg/dL (7-18); CALCIUM 8.6 mg/dL (8.5-10.1); MAGNESIUM 2.5 mg/dL (1.8-2.4)
[2021-04-01 10:50] LABS: PHOSPHOROUS 3.8 mg/dL (2.5-4.9)
[2021-04-01 10:52] LABS: BILIRUBIN,TOTAL 0.6 mg/dL (0.2-1)
[2021-04-01] MEDS ORDERED: MAG HYDROX/AL HYDROX/SIMETH 30 ML UNIT-DOSE CUP PO PRN (19:53)
[2021-04-01] MEDS ORDERED: PT OWN MED DRAWER 7, Y5N ONE (19:56)
[2021-04-01 23:06] VITALS: TEMP 98
[2021-04-02] MEDS: ACETAMINOPHEN 325 MG TABLET (FP) PO PRN ×2 (04:44→09:21)
[2021-04-02] MEDS: GABAPENTIN 300 MG CAPSULE PO SCH ×2 (05:22→13:37)
[2021-04-02 09:11] LABS: HEMATOCRIT 41.2 % (35.4-49); HEMOGLOBIN 13.8 GM/dL (11.7-16.9); MCH 31.6 pg (25.7-33.7); MCHC 33.6 g/dl (32.0-35.9); MEAN CELL VOLUME 94.1 fl (80-96); MEAN PLT VOLUME 7.9 fl (7.5-11.1); PLATELET COUNT 347 10^3/uL (134-434); RBC 4.37 M/mm3 (4.00-5.60); RDW 13.6 % (11.9-15.9); WHITE BLOOD COUNT 7.2 K/mm3 (4.0-10.0)
[2021-04-02] MEDS ORDERED: PT OWN MED DRAWER 7, Y5N ONE (09:12)
[2021-04-02] MEDS: ARIPiprazole 15 MG TABLET PO SCH (09:22)
[2021-04-02] MEDS: CYANOCOBALAMIN (VITAMIN B-12) 1000 MCG/1 ML VIAL IM SCH (09:22)
[2021-04-02] MEDS: FOLIC ACID 1 MG TABLET (FP) PO SCH (09:22)
[2021-04-02] MEDS: ENOXAPARIN NA (PORCINE) 40 MG/0.4 ML DISP.SYRIN SQ SCH (09:23)
[2021-04-02] MEDS: THIAMINE HCL 100 MG TABLET (FP) PO SCH (09:24)
[2021-04-02 09:37] LABS: CALCIUM 8.8 mg/dL (8.5-10.1)
[2021-04-02 09:38] LABS: ALBUMIN 3.7 g/dl (3.4-5.0); BLOOD UREA NITROGEN 15.2 mg/dL (7-18); MAGNESIUM 2.4 mg/dL (1.8-2.4)
[2021-04-02 09:42] LABS: BILIRUBIN,TOTAL 0.6 mg/dL (0.2-1); TOT PROT 6.7 g/dl (6.4-8.2)
[2021-04-02 12:55] VITALS: BP 124/73; PULSE 88
== END 2021-04-02 18:33 | disposition other institution (70) | DRG 351 ==
LOC: JER 16:16 → JERBED 20:53 → J8W 03-29 14:25 → UNDODISIN 04-02 18:28
PROVIDERS: ADMIT Internal Medicine; ATTEND Internal Medicine
PROC: 009U3ZZ Drainage of Spinal Canal, Percutaneous Approach (ICD-10-PCS; principal; 2021-03-31)
DX: M62.81 Muscle weakness (generalized) (principal); F10.20 Alcohol dependence, uncomplicated; Q04.9 Congenital malformation of brain, unspecified
CPT/HCPCS: 36415; 70450-TC; 70552-TC; 72131-TC; 72149-TC; 72156-TC; 72157-TC; 80048; 80053; 82085; 82140; 82550; 82607; 82945; 82977; 83036; 83735; 83916; 84100; 84155; 84157; 84165; 84443; 85025; 85027; 85651; 86618; 87040; 87070; 87205; 87389; 93005; 93010; 97116-GP; 97161-GP; 99285-25; A9579; C9803; U0003; U0005

== ENCOUNTER 2021-04-02 16:59 | Inpatient (IN) | payer OTHER ==
[2021-04-02] MEDS ORDERED: ACETAMINOPHEN 500 MG TABLET (FP) PO ONE (17:55)
[2021-04-02] MEDS ORDERED: IBUPROFEN 400 MG TABLET (FP) PO PRN (18:18)
[2021-04-02] MEDS ORDERED: MAGNESIUM HYDROX 2400MG/30ML ORAL SUSPENSION 30 ML CUP PO PRN (18:18)
[2021-04-02] MEDS ORDERED: P-EPHED 60MG/TRIPROLIDI 2.5MG TABLET PO PRN (18:18)
[2021-04-02] MEDS ORDERED: MAGNESIUM CITRATE 300 ML BOTTLE PO PRN (18:18)
[2021-04-02] MEDS ORDERED: ACETAMINOPHEN 325 MG TABLET (FP) PO PRN (18:18)
[2021-04-02] MEDS ORDERED: LOPERAMIDE HCL 2 MG CAPSULE PO PRN (18:18)
[2021-04-02] MEDS ORDERED: guaiFENesin 200 MG/10 ML 10 ML UNIT-DOSE CUPS PO PRN (18:18)
[2021-04-02] MEDS ORDERED: MAG HYDROX/AL HYDROX/SIMETH 30 ML UNIT-DOSE CUP PO PRN (18:18)
[2021-04-02 18:30] VITALS: BMI 31.7
[2021-04-02] MEDS: MELATONIN 5 MG TABLETS PO SCH (21:29)
[2021-04-02] MEDS: hydrOXYzine PAMOATE 25 MG CAPSULE (FP) PO SCH (21:30)
[2021-04-03] MEDS: hydrOXYzine PAMOATE 25 MG CAPSULE (FP) PO SCH ×5 (06:30→21:14)
[2021-04-03 06:48] VITALS: TEMP 98.4
[2021-04-03] MEDS: THIAMINE HCL 100 MG TABLET (FP) PO SCH (09:57)
[2021-04-03] MEDS: PRENATAL VITAMINS W/ FOLIC ACID TABLET (FP) PO SCH (09:57)
[2021-04-03] MEDS: FOLIC ACID 1 MG TABLET (FP) PO SCH (09:57)
[2021-04-03] MEDS: ARIPiprazole 10 MG TABLET PO SCH (11:55)
[2021-04-03] MEDS: GABAPENTIN 300 MG CAPSULE PO SCH ×2 (14:21→21:13)
[2021-04-03] MEDS: CYANOCOBALAMIN (VITAMIN B-12) 1000 MCG/1 ML VIAL IM SCH (16:00)
[2021-04-03] MEDS ORDERED: PT OWN MED DRAWER 7, Y5N ONE (16:07)
[2021-04-03] MEDS: MELATONIN 5 MG TABLETS PO SCH (21:13)
[2021-04-04] MEDS: GABAPENTIN 300 MG CAPSULE PO SCH ×3 (05:59→21:25)
[2021-04-04] MEDS: hydrOXYzine PAMOATE 25 MG CAPSULE (FP) PO SCH ×2 (06:00→10:15)
[2021-04-04] MEDS: PRENATAL VITAMINS W/ FOLIC ACID TABLET (FP) PO SCH (10:14)
[2021-04-04] MEDS: THIAMINE HCL 100 MG TABLET (FP) PO SCH (10:15)
[2021-04-04] MEDS: FOLIC ACID 1 MG TABLET (FP) PO SCH (10:15)
[2021-04-04] MEDS: ARIPiprazole 10 MG TABLET PO SCH (10:16)
[2021-04-04] MEDS ORDERED: PT OWN MED DRAWER 7, Y5N ONE (10:35)
[2021-04-04] MEDS: CYANOCOBALAMIN (VITAMIN B-12) 1000 MCG/1 ML VIAL IM SCH (10:40)
[2021-04-04] MEDS ORDERED: hydrOXYzine PAMOATE 25 MG CAPSULE (FP) PO PRN (12:16)
[2021-04-04] MEDS: MELATONIN 5 MG TABLETS PO SCH (21:25)
[2021-04-05] MEDS: GABAPENTIN 300 MG CAPSULE PO SCH ×2 (05:54→13:12)
[2021-04-05 06:59] VITALS: BP 104/71; PULSE 70
[2021-04-05] MEDS: ARIPiprazole 10 MG TABLET PO SCH (09:49)
[2021-04-05] MEDS: PRENATAL VITAMINS W/ FOLIC ACID TABLET (FP) PO SCH (09:49)
[2021-04-05] MEDS: FOLIC ACID 1 MG TABLET (FP) PO SCH (09:49)
[2021-04-05] MEDS: THIAMINE HCL 100 MG TABLET (FP) PO SCH (09:49)
[2021-04-05] MEDS ORDERED: PT OWN MED DRAWER 7, Y5N ONE (10:45)
[2021-04-05] MEDS: CYANOCOBALAMIN (VITAMIN B-12) 1000 MCG/1 ML VIAL IM SCH (10:51)
[2021-04-14] MEDS ORDERED: CYANOCOBALAMIN (VITAMIN B-12) 1000 MCG/1 ML VIAL IM SCH (19:00)
== END 2021-04-05 13:05 | disposition home or self-care (01) | DRG 772 ==
LOC: YASAS 16:59 → Y3W 18:35
PROVIDERS: ADMIT Allergy & Immunology; ATTEND Allergy & Immunology
PROC: HZ42ZZZ Group Counseling for Substance Abuse Treatment, Cognitive-Behavioral (ICD-10-PCS; principal; 2021-04-02)
DX: F10.20 Alcohol dependence, uncomplicated (principal); F10.282 Alcohol dependence with alcohol-induced sleep disorder; F19.24 Other psychoactive substance dependence with psychoactive substance-induced mood disorder; F42.9 Obsessive-compulsive disorder, unspecified; M54.59 Other low back pain; R53.1 Weakness; G89.29 Other chronic pain; E66.9 Obesity, unspecified; Z68.31 Body mass index [BMI] 31.0-31.9, adult; Z56.0 Unemployment, unspecified; Z59.00 Homelessness unspecified
CPT/HCPCS: 87811; C9803; U0003; U0005

== ENCOUNTER 2021-06-20 08:10 | Inpatient (IN) | payer OTHER ==
[2021-06-20] MEDS ORDERED: ONDANSETRON *ODT* 4 MG TABLET SL PRN (08:39)
[2021-06-20] MEDS ORDERED: MENTHOL/PHENOL 1 EACH UD MM PRN (08:39)
[2021-06-20] MEDS ORDERED: MAGNESIUM HYDROX 2400MG/30ML ORAL SUSPENSION 30 ML CUP PO PRN (08:39)
[2021-06-20] MEDS ORDERED: diazePAM 5 MG TABLET PO PRN (08:39)
[2021-06-20] MEDS ORDERED: MAG HYDROX/AL HYDROX/SIMETH 30 ML UNIT-DOSE CUP PO PRN (08:39)
[2021-06-20] MEDS ORDERED: BISMUTH SUBSALICYLATE 524 MG/30 ML PO PRN (08:39)
[2021-06-20] MEDS ORDERED: IBUPROFEN 400 MG TABLET (FP) PO PRN (08:39)
[2021-06-20] MEDS ORDERED: ACETAMINOPHEN 325 MG TABLET (FP) PO PRN ×2 (08:39)
[2021-06-20] MEDS ORDERED: MAGNESIUM CITRATE 300 ML BOTTLE PO PRN (08:39)
[2021-06-20] MEDS ORDERED: chlordiazePOXIDE HCL 25 MG CAPSULE PO PRN (08:44)
[2021-06-20 08:59] VITALS: BMI 33.4
[2021-06-20] MEDS: hydrOXYzine PAMOATE 25 MG CAPSULE (FP) PO SCH ×4 (09:52→22:27)
[2021-06-20] MEDS: PRENATAL VITAMINS W/ FOLIC ACID TABLET (FP) PO SCH (09:52)
[2021-06-20] MEDS: chlordiazePOXIDE HCL 25 MG CAPSULE PO SCH ×3 (10:00→22:27)
[2021-06-20] MEDS ORDERED: diazePAM 5 MG TABLET PO SCH (11:00)
[2021-06-20] MEDS: BACITRACIN/POLYMYXIN B SULFATE 15 GM TUBE TP SCH ×2 (12:50→22:27)
[2021-06-20] MEDS: GABAPENTIN 400 MG CAPSULE PO SCH ×2 (16:00→22:26)
[2021-06-20] MEDS: MELATONIN 5 MG TABLETS PO SCH (22:26)
[2021-06-20] MEDS: THIAMINE HCL 100 MG TABLET (FP) PO SCH (22:26)
[2021-06-21] MEDS: GABAPENTIN 400 MG CAPSULE PO SCH ×3 (05:43→22:50)
[2021-06-21] MEDS: chlordiazePOXIDE HCL 25 MG CAPSULE PO SCH ×4 (05:43→22:50)
[2021-06-21] MEDS: hydrOXYzine PAMOATE 25 MG CAPSULE (FP) PO SCH ×5 (05:43→22:54)
[2021-06-21] MEDS: LOPERAMIDE HCL 2 MG CAPSULE PO PRN ×2 (05:47→17:31)
[2021-06-21] MEDS: PRENATAL VITAMINS W/ FOLIC ACID TABLET (FP) PO SCH (10:08)
[2021-06-21] MEDS: METHOCARBAMOL 500 MG TABLET PO PRN (10:08)
[2021-06-21] MEDS: FLUoxetine HCL 20 MG CAPSULE PO SCH (10:08)
[2021-06-21] MEDS: BACITRACIN/POLYMYXIN B SULFATE 15 GM TUBE TP SCH ×2 (10:12→23:08)
[2021-06-21 14:43] LABS: HEMATOCRIT 46.1 % (35.4-49); HEMOGLOBIN 15.5 GM/dL (11.7-16.9); MCH 31.1 pg (25.7-33.7); MCHC 33.6 g/dl (32.0-35.9); MEAN CELL VOLUME 92.7 fl (80-96); PLATELET COUNT 303 10^3/uL (134-434); RBC 4.97 M/mm3 (4.00-5.60); RDW 13.5 % (11.9-15.9); WHITE BLOOD COUNT 7.4 K/mm3 (4.0-10.0)
[2021-06-21 15:09] LABS: ALBUMIN 4.1 g/dl (3.4-5.0)
[2021-06-21 15:11] LABS: BLOOD UREA NITROGEN 12.1 mg/dL (7-18)
[2021-06-21 15:15] LABS: BILIRUBIN,TOTAL 1.4 mg/dL (0.2-1); TOT PROT 7.6 g/dl (6.4-8.2)
[2021-06-21] MEDS: THIAMINE HCL 100 MG TABLET (FP) PO SCH (22:50)
[2021-06-21] MEDS: MELATONIN 5 MG TABLETS PO SCH (22:53)
[2021-06-22] MEDS: hydrOXYzine PAMOATE 25 MG CAPSULE (FP) PO SCH ×5 (05:26→22:46)
[2021-06-22] MEDS: GABAPENTIN 400 MG CAPSULE PO SCH ×3 (05:26→22:46)
[2021-06-22] MEDS: chlordiazePOXIDE HCL 25 MG CAPSULE PO SCH ×4 (05:26→22:47)
[2021-06-22] MEDS ORDERED: diazePAM 5 MG TABLET PO SCH (06:00)
[2021-06-22] MEDS: BACITRACIN/POLYMYXIN B SULFATE 15 GM TUBE TP SCH ×2 (10:23→22:46)
[2021-06-22] MEDS: FLUoxetine HCL 20 MG CAPSULE PO SCH (10:23)
[2021-06-22] MEDS: PRENATAL VITAMINS W/ FOLIC ACID TABLET (FP) PO SCH (10:23)
[2021-06-22 16:09] LABS: SARS-CoV-2 NAA Not Detected (Not Detected)
[2021-06-22] MEDS: LOPERAMIDE HCL 2 MG CAPSULE PO PRN (18:41)
[2021-06-22] MEDS: THIAMINE HCL 100 MG TABLET (FP) PO SCH (22:46)
[2021-06-22] MEDS: MELATONIN 5 MG TABLETS PO SCH (22:46)
[2021-06-23] MEDS ORDERED: chlordiazePOXIDE HCL 10 MG CAPSULE PO PRN
[2021-06-23] MEDS: chlordiazePOXIDE HCL 10 MG CAPSULE PO SCH ×4 (05:54→22:09)
[2021-06-23] MEDS: hydrOXYzine PAMOATE 25 MG CAPSULE (FP) PO SCH ×5 (05:54→22:09)
[2021-06-23] MEDS: LOPERAMIDE HCL 2 MG CAPSULE PO PRN (05:54)
[2021-06-23] MEDS: GABAPENTIN 400 MG CAPSULE PO SCH ×3 (05:55→22:09)
[2021-06-23] MEDS ORDERED: diazePAM 5 MG TABLET PO SCH (06:00)
[2021-06-23] MEDS: METHOCARBAMOL 500 MG TABLET PO PRN (10:03)
[2021-06-23] MEDS: FLUoxetine HCL 20 MG CAPSULE PO SCH (10:03)
[2021-06-23] MEDS: BACITRACIN/POLYMYXIN B SULFATE 15 GM TUBE TP SCH ×2 (10:03→22:09)
[2021-06-23] MEDS: PRENATAL VITAMINS W/ FOLIC ACID TABLET (FP) PO SCH (10:04)
[2021-06-23] MEDS: THIAMINE HCL 100 MG TABLET (FP) PO SCH (22:08)
[2021-06-23] MEDS: MELATONIN 5 MG TABLETS PO SCH (22:08)
[2021-06-24] MEDS: GABAPENTIN 400 MG CAPSULE PO SCH ×3 (05:58→22:10)
[2021-06-24] MEDS: hydrOXYzine PAMOATE 25 MG CAPSULE (FP) PO SCH ×6 (05:59→22:10)
[2021-06-24] MEDS: chlordiazePOXIDE HCL 10 MG CAPSULE PO SCH ×3 (06:00→18:26)
[2021-06-24] MEDS ORDERED: diazePAM 5 MG TABLET PO ONE (06:00)
[2021-06-24] MEDS: FLUoxetine HCL 20 MG CAPSULE PO SCH (10:17)
[2021-06-24] MEDS: BACITRACIN/POLYMYXIN B SULFATE 15 GM TUBE TP SCH ×2 (10:17→22:10)
[2021-06-24] MEDS: PRENATAL VITAMINS W/ FOLIC ACID TABLET (FP) PO SCH (10:17)
[2021-06-24] MEDS: METHOCARBAMOL 500 MG TABLET PO PRN (10:18)
[2021-06-24] MEDS: THIAMINE HCL 100 MG TABLET (FP) PO SCH (22:10)
[2021-06-24] MEDS: MELATONIN 5 MG TABLETS PO SCH (22:10)
[2021-06-25] MEDS ORDERED: chlordiazePOXIDE HCL 10 MG CAPSULE PO ONE (05:00)
[2021-06-25] MEDS: hydrOXYzine PAMOATE 25 MG CAPSULE (FP) PO SCH ×2 (05:52→12:10)
[2021-06-25] MEDS: GABAPENTIN 400 MG CAPSULE PO SCH (05:52)
[2021-06-25 09:31] VITALS: BP 112/72; PULSE 97; TEMP 97.3
[2021-06-25] MEDS: PRENATAL VITAMINS W/ FOLIC ACID TABLET (FP) PO SCH (10:07)
[2021-06-25] MEDS: FLUoxetine HCL 20 MG CAPSULE PO SCH (10:07)
[2021-06-25] MEDS: BACITRACIN/POLYMYXIN B SULFATE 15 GM TUBE TP SCH (10:08)
== END 2021-06-25 12:20 | disposition other institution (70) | DRG 775 ==
LOC: YASAS 08:10 → Y6N 09:11
PROVIDERS: ADMIT Allergy & Immunology; ATTEND Allergy & Immunology
PROC: HZ2ZZZZ Detoxification Services for Substance Abuse Treatment (ICD-10-PCS; principal; 2021-06-20)
DX: F10.230 Alcohol dependence with withdrawal, uncomplicated (principal); F10.282 Alcohol dependence with alcohol-induced sleep disorder; F10.280 Alcohol dependence with alcohol-induced anxiety disorder; F10.24 Alcohol dependence with alcohol-induced mood disorder; F41.8 Other specified anxiety disorders; F32.A Depression, unspecified; F42.9 Obsessive-compulsive disorder, unspecified; E80.6 Other disorders of bilirubin metabolism; L25.9 Unspecified contact dermatitis, unspecified cause; M54.50 Low back pain, unspecified; G89.29 Other chronic pain; E66.9 Obesity, unspecified; Z68.33 Body mass index [BMI] 33.0-33.9, adult; Z59.02 Unsheltered homelessness
CPT/HCPCS: 36415; 80053; 85027; 86780; 87811; C9803; U0003; U0005

== ENCOUNTER 2021-06-25 12:26 | Inpatient (IN) | payer OTHER ==
[2021-06-25] MEDS ORDERED: ACETAMINOPHEN 325 MG TABLET (FP) PO PRN (13:07)
[2021-06-25] MEDS ORDERED: MAGNESIUM CITRATE 300 ML BOTTLE PO PRN (13:07)
[2021-06-25] MEDS ORDERED: guaiFENesin 200 MG/10 ML 10 ML UNIT-DOSE CUPS PO PRN (13:07)
[2021-06-25] MEDS ORDERED: NICOTINE 10 MG CARTRIDGE (INHALER) IH PRN (13:07)
[2021-06-25] MEDS ORDERED: MENTHOL/PHENOL 1 EACH UD MM PRN (13:07)
[2021-06-25] MEDS ORDERED: MAG HYDROX/AL HYDROX/SIMETH 30 ML UNIT-DOSE CUP PO PRN (13:07)
[2021-06-25] MEDS ORDERED: MAGNESIUM HYDROX 2400MG/30ML ORAL SUSPENSION 30 ML CUP PO PRN (13:07)
[2021-06-25] MEDS ORDERED: IBUPROFEN 400 MG TABLET (FP) PO PRN (13:07)
[2021-06-25] MEDS ORDERED: P-EPHED 60MG/TRIPROLIDI 2.5MG TABLET PO PRN (13:07)
[2021-06-25] MEDS: GABAPENTIN 400 MG CAPSULE PO SCH ×2 (14:03→21:47)
[2021-06-25] MEDS: hydrOXYzine PAMOATE 25 MG CAPSULE (FP) PO SCH ×3 (14:03→21:47)
[2021-06-25] MEDS: MELATONIN 5 MG TABLETS PO SCH (21:47)
[2021-06-25] MEDS: THIAMINE HCL 100 MG TABLET (FP) PO SCH (21:47)
[2021-06-26] MEDS: hydrOXYzine PAMOATE 25 MG CAPSULE (FP) PO SCH ×5 (06:24→21:22)
[2021-06-26] MEDS: GABAPENTIN 400 MG CAPSULE PO SCH ×3 (06:24→21:21)
[2021-06-26] MEDS: PRENATAL VITAMINS W/ FOLIC ACID TABLET (FP) PO SCH (09:45)
[2021-06-26] MEDS ORDERED: NICOTINE 7 MG/24 HOURS TOPICAL PATCH TD SCH (10:00)
[2021-06-26] MEDS ORDERED: FLUoxetine HCL 20 MG CAPSULE PO SCH (10:00)
[2021-06-26] MEDS ORDERED: FLUoxetine HCL 20 MG CAPSULE PO ONE (11:54)
[2021-06-26] MEDS: MELATONIN 5 MG TABLETS PO SCH (21:21)
[2021-06-26] MEDS: THIAMINE HCL 100 MG TABLET (FP) PO SCH (21:21)
[2021-06-27] MEDS: GABAPENTIN 400 MG CAPSULE PO SCH ×3 (05:53→21:27)
[2021-06-27] MEDS: hydrOXYzine PAMOATE 25 MG CAPSULE (FP) PO SCH ×2 (05:53→09:52)
[2021-06-27] MEDS: FLUoxetine HCL 20 MG CAPSULE PO SCH (09:51)
[2021-06-27] MEDS: PRENATAL VITAMINS W/ FOLIC ACID TABLET (FP) PO SCH (09:51)
[2021-06-27] MEDS ORDERED: hydrOXYzine PAMOATE 25 MG CAPSULE (FP) PO PRN (11:29)
[2021-06-27] MEDS: MELATONIN 5 MG TABLETS PO SCH (21:27)
[2021-06-27] MEDS: THIAMINE HCL 100 MG TABLET (FP) PO SCH (21:27)
[2021-06-28] MEDS: GABAPENTIN 400 MG CAPSULE PO SCH ×3 (07:00→21:20)
[2021-06-28] MEDS: PRENATAL VITAMINS W/ FOLIC ACID TABLET (FP) PO SCH (09:44)
[2021-06-28] MEDS: FLUoxetine HCL 20 MG CAPSULE PO SCH (09:44)
[2021-06-28] MEDS: THIAMINE HCL 100 MG TABLET (FP) PO SCH (21:21)
[2021-06-28] MEDS: MELATONIN 5 MG TABLETS PO SCH (21:21)
[2021-06-29] MEDS: GABAPENTIN 400 MG CAPSULE PO SCH ×3 (06:11→21:16)
[2021-06-29] MEDS: PRENATAL VITAMINS W/ FOLIC ACID TABLET (FP) PO SCH (10:10)
[2021-06-29] MEDS: FLUoxetine HCL 20 MG CAPSULE PO SCH (10:10)
[2021-06-29] MEDS: LOPERAMIDE HCL 2 MG CAPSULE PO PRN (10:11)
[2021-06-29 14:08] LABS: SARS-CoV-2 NAA Not Detected (Not Detected)
[2021-06-29] MEDS: THIAMINE HCL 100 MG TABLET (FP) PO SCH (21:16)
[2021-06-29] MEDS: MELATONIN 5 MG TABLETS PO SCH (21:16)
[2021-06-30] MEDS: GABAPENTIN 400 MG CAPSULE PO SCH ×3 (05:49→21:09)
[2021-06-30] MEDS: FLUoxetine HCL 20 MG CAPSULE PO SCH (09:50)
[2021-06-30] MEDS: PRENATAL VITAMINS W/ FOLIC ACID TABLET (FP) PO SCH (09:51)
[2021-06-30] MEDS: THIAMINE HCL 100 MG TABLET (FP) PO SCH (21:09)
[2021-06-30] MEDS: MELATONIN 5 MG TABLETS PO SCH (21:09)
[2021-07-01] MEDS: GABAPENTIN 400 MG CAPSULE PO SCH ×3 (06:43→21:07)
[2021-07-01] MEDS: PRENATAL VITAMINS W/ FOLIC ACID TABLET (FP) PO SCH (10:23)
[2021-07-01] MEDS: FLUoxetine HCL 20 MG CAPSULE PO SCH (10:24)
[2021-07-01] MEDS: MELATONIN 5 MG TABLETS PO SCH (21:07)
[2021-07-01] MEDS: THIAMINE HCL 100 MG TABLET (FP) PO SCH (21:07)
[2021-07-02] MEDS: GABAPENTIN 400 MG CAPSULE PO SCH ×3 (07:06→21:25)
[2021-07-02] MEDS: PRENATAL VITAMINS W/ FOLIC ACID TABLET (FP) PO SCH (10:50)
[2021-07-02] MEDS: FLUoxetine HCL 20 MG CAPSULE PO SCH (11:25)
[2021-07-02] MEDS: MELATONIN 5 MG TABLETS PO SCH (21:25)
[2021-07-02] MEDS: THIAMINE HCL 100 MG TABLET (FP) PO SCH (21:26)
[2021-07-03] MEDS: GABAPENTIN 400 MG CAPSULE PO SCH ×3 (06:31→21:17)
[2021-07-03] MEDS: PRENATAL VITAMINS W/ FOLIC ACID TABLET (FP) PO SCH (10:23)
[2021-07-03] MEDS: FLUoxetine HCL 20 MG CAPSULE PO SCH (10:23)
[2021-07-03] MEDS: THIAMINE HCL 100 MG TABLET (FP) PO SCH (21:17)
[2021-07-03] MEDS: MELATONIN 5 MG TABLETS PO SCH (21:17)
[2021-07-04] MEDS: GABAPENTIN 400 MG CAPSULE PO SCH ×3 (06:40→21:21)
[2021-07-04] MEDS: PRENATAL VITAMINS W/ FOLIC ACID TABLET (FP) PO SCH (10:09)
[2021-07-04] MEDS: FLUoxetine HCL 20 MG CAPSULE PO SCH (10:10)
[2021-07-04] MEDS: THIAMINE HCL 100 MG TABLET (FP) PO SCH (21:21)
[2021-07-04] MEDS: MELATONIN 5 MG TABLETS PO SCH (21:21)
[2021-07-05] MEDS: GABAPENTIN 400 MG CAPSULE PO SCH ×3 (06:40→21:02)
[2021-07-05] MEDS: PRENATAL VITAMINS W/ FOLIC ACID TABLET (FP) PO SCH (10:18)
[2021-07-05] MEDS: FLUoxetine HCL 20 MG CAPSULE PO SCH (10:19)
[2021-07-05] MEDS: MELATONIN 5 MG TABLETS PO SCH (21:02)
[2021-07-05] MEDS: THIAMINE HCL 100 MG TABLET (FP) PO SCH (21:02)
[2021-07-06] MEDS: GABAPENTIN 400 MG CAPSULE PO SCH ×3 (06:09→22:03)
[2021-07-06] MEDS: FLUoxetine HCL 20 MG CAPSULE PO SCH (10:36)
[2021-07-06] MEDS: PRENATAL VITAMINS W/ FOLIC ACID TABLET (FP) PO SCH (10:37)
[2021-07-06 12:07] LABS: HIV INTERPRETATION NEGATIVE (NEGATIVE)
[2021-07-06] MEDS: THIAMINE HCL 100 MG TABLET (FP) PO SCH (22:03)
[2021-07-06] MEDS: MELATONIN 5 MG TABLETS PO SCH (22:03)
[2021-07-07] MEDS: GABAPENTIN 400 MG CAPSULE PO SCH ×3 (06:03→21:08)
[2021-07-07] MEDS: FLUoxetine HCL 20 MG CAPSULE PO SCH (10:30)
[2021-07-07] MEDS: PRENATAL VITAMINS W/ FOLIC ACID TABLET (FP) PO SCH (10:30)
[2021-07-07] MEDS: MELATONIN 5 MG TABLETS PO SCH (21:08)
[2021-07-07] MEDS: THIAMINE HCL 100 MG TABLET (FP) PO SCH (21:08)
[2021-07-08] MEDS: GABAPENTIN 400 MG CAPSULE PO SCH ×3 (06:51→21:05)
[2021-07-08] MEDS: FLUoxetine HCL 20 MG CAPSULE PO SCH (10:26)
[2021-07-08] MEDS: PRENATAL VITAMINS W/ FOLIC ACID TABLET (FP) PO SCH (10:27)
[2021-07-08] MEDS: THIAMINE HCL 100 MG TABLET (FP) PO SCH (21:05)
[2021-07-08] MEDS: MELATONIN 5 MG TABLETS PO SCH (21:05)
[2021-07-09] MEDS: GABAPENTIN 400 MG CAPSULE PO SCH ×3 (05:56→21:32)
[2021-07-09] MEDS: PRENATAL VITAMINS W/ FOLIC ACID TABLET (FP) PO SCH (10:08)
[2021-07-09] MEDS: FLUoxetine HCL 20 MG CAPSULE PO SCH (10:08)
[2021-07-09] MEDS: MELATONIN 5 MG TABLETS PO SCH (21:32)
[2021-07-09] MEDS: THIAMINE HCL 100 MG TABLET (FP) PO SCH (21:33)
[2021-07-10] MEDS: GABAPENTIN 400 MG CAPSULE PO SCH ×3 (05:56→21:04)
[2021-07-10] MEDS: FLUoxetine HCL 20 MG CAPSULE PO SCH (09:30)
[2021-07-10] MEDS: PRENATAL VITAMINS W/ FOLIC ACID TABLET (FP) PO SCH (09:31)
[2021-07-10] MEDS: MELATONIN 5 MG TABLETS PO SCH (21:04)
[2021-07-10] MEDS: THIAMINE HCL 100 MG TABLET (FP) PO SCH (21:05)
[2021-07-11] MEDS: GABAPENTIN 400 MG CAPSULE PO SCH ×3 (06:36→21:25)
[2021-07-11] MEDS: PRENATAL VITAMINS W/ FOLIC ACID TABLET (FP) PO SCH (10:31)
[2021-07-11] MEDS: FLUoxetine HCL 20 MG CAPSULE PO SCH (10:31)
[2021-07-11] MEDS: MELATONIN 5 MG TABLETS PO SCH (21:25)
[2021-07-11] MEDS: THIAMINE HCL 100 MG TABLET (FP) PO SCH (21:25)
[2021-07-12] MEDS: GABAPENTIN 400 MG CAPSULE PO SCH ×3 (05:56→21:09)
[2021-07-12] MEDS: PRENATAL VITAMINS W/ FOLIC ACID TABLET (FP) PO SCH (10:52)
[2021-07-12] MEDS: FLUoxetine HCL 20 MG CAPSULE PO SCH (10:52)
[2021-07-12] MEDS: MELATONIN 5 MG TABLETS PO SCH (21:09)
[2021-07-12] MEDS: THIAMINE HCL 100 MG TABLET (FP) PO SCH (21:09)
[2021-07-13] MEDS: GABAPENTIN 400 MG CAPSULE PO SCH ×3 (05:45→22:20)
[2021-07-13] MEDS: PRENATAL VITAMINS W/ FOLIC ACID TABLET (FP) PO SCH (10:34)
[2021-07-13] MEDS: FLUoxetine HCL 20 MG CAPSULE PO SCH (10:34)
[2021-07-13] MEDS: LOPERAMIDE HCL 2 MG CAPSULE PO PRN (10:38)
[2021-07-13] MEDS: THIAMINE HCL 100 MG TABLET (FP) PO SCH (22:20)
[2021-07-13] MEDS: MELATONIN 5 MG TABLETS PO SCH (22:20)
[2021-07-14] MEDS: GABAPENTIN 400 MG CAPSULE PO SCH ×3 (06:03→21:07)
[2021-07-14] MEDS: FLUoxetine HCL 20 MG CAPSULE PO SCH (09:44)
[2021-07-14] MEDS: PRENATAL VITAMINS W/ FOLIC ACID TABLET (FP) PO SCH (09:44)
[2021-07-14] MEDS: MELATONIN 5 MG TABLETS PO SCH (21:07)
[2021-07-14] MEDS: THIAMINE HCL 100 MG TABLET (FP) PO SCH (21:07)
[2021-07-15] MEDS: GABAPENTIN 400 MG CAPSULE PO SCH ×3 (06:03→21:30)
[2021-07-15] MEDS: FLUoxetine HCL 20 MG CAPSULE PO SCH (10:14)
[2021-07-15] MEDS: PRENATAL VITAMINS W/ FOLIC ACID TABLET (FP) PO SCH (10:14)
[2021-07-15] MEDS: THIAMINE HCL 100 MG TABLET (FP) PO SCH (21:30)
[2021-07-15] MEDS: MELATONIN 5 MG TABLETS PO SCH (21:30)
[2021-07-16] MEDS: GABAPENTIN 400 MG CAPSULE PO SCH ×3 (06:03→21:38)
[2021-07-16] MEDS: PRENATAL VITAMINS W/ FOLIC ACID TABLET (FP) PO SCH (09:41)
[2021-07-16] MEDS: FLUoxetine HCL 20 MG CAPSULE PO SCH (10:28)
[2021-07-16] MEDS: MELATONIN 5 MG TABLETS PO SCH (21:38)
[2021-07-16] MEDS: THIAMINE HCL 100 MG TABLET (FP) PO SCH (21:38)
[2021-07-17] MEDS: GABAPENTIN 400 MG CAPSULE PO SCH ×2 (05:47→14:08)
[2021-07-17] MEDS: LOPERAMIDE HCL 2 MG CAPSULE PO PRN (07:50)
[2021-07-17] MEDS: PRENATAL VITAMINS W/ FOLIC ACID TABLET (FP) PO SCH (10:16)
[2021-07-17] MEDS: FLUoxetine HCL 20 MG CAPSULE PO SCH (10:16)
[2021-07-18] MEDS: MELATONIN 5 MG TABLETS PO SCH ×2 (00:10→21:40)
[2021-07-18] MEDS: THIAMINE HCL 100 MG TABLET (FP) PO SCH ×2 (00:10→21:40)
[2021-07-18] MEDS: GABAPENTIN 400 MG CAPSULE PO SCH ×4 (00:10→21:40)
[2021-07-18] MEDS: PRENATAL VITAMINS W/ FOLIC ACID TABLET (FP) PO SCH (09:13)
[2021-07-18] MEDS: FLUoxetine HCL 20 MG CAPSULE PO SCH (09:13)
[2021-07-19] MEDS: GABAPENTIN 400 MG CAPSULE PO SCH ×3 (06:00→23:05)
[2021-07-19] MEDS: PRENATAL VITAMINS W/ FOLIC ACID TABLET (FP) PO SCH (10:26)
[2021-07-19] MEDS: FLUoxetine HCL 20 MG CAPSULE PO SCH (10:33)
[2021-07-19] MEDS: LOPERAMIDE HCL 2 MG CAPSULE PO PRN (13:39)
[2021-07-19] MEDS: THIAMINE HCL 100 MG TABLET (FP) PO SCH (23:05)
[2021-07-19] MEDS: MELATONIN 5 MG TABLETS PO SCH (23:05)
[2021-07-20] MEDS: LOPERAMIDE HCL 2 MG CAPSULE PO PRN (01:07)
[2021-07-20 06:16] VITALS: BP 107/67; PULSE 67; TEMP 98.3
[2021-07-20] MEDS: GABAPENTIN 400 MG CAPSULE PO SCH (06:31)
[2021-07-20] MEDS: PRENATAL VITAMINS W/ FOLIC ACID TABLET (FP) PO SCH (11:00)
[2021-07-20] MEDS: FLUoxetine HCL 20 MG CAPSULE PO SCH (11:01)
== END 2021-07-20 11:01 | disposition home or self-care (01) | DRG 772 ==
LOC: YASAS 12:26 → Y3W 12:27
PROVIDERS: ADMIT Allergy & Immunology; ATTEND Allergy & Immunology
PROC: HZ42ZZZ Group Counseling for Substance Abuse Treatment, Cognitive-Behavioral (ICD-10-PCS; principal; 2021-06-25)
DX: F10.20 Alcohol dependence, uncomplicated (principal); F10.282 Alcohol dependence with alcohol-induced sleep disorder; F41.9 Anxiety disorder, unspecified; F42.9 Obsessive-compulsive disorder, unspecified; M54.50 Low back pain, unspecified; G89.29 Other chronic pain; Z56.0 Unemployment, unspecified; Z59.00 Homelessness unspecified
CPT/HCPCS: 36415; 87389; C9803-CS; U0003; U0005

== ENCOUNTER 2021-11-01 13:01 | Inpatient (IN) | payer OTHER ==
[2021-11-01 14:39] VITALS: BMI 29.8
[2021-11-01] MEDS ORDERED: MAG HYDROX/AL HYDROX/SIMETH 30 ML UNIT-DOSE CUP PO PRN (14:45)
[2021-11-01] MEDS ORDERED: MAGNESIUM CITRATE 300 ML BOTTLE PO PRN (14:45)
[2021-11-01] MEDS ORDERED: ONDANSETRON *ODT* 4 MG TABLET SL PRN (14:45)
[2021-11-01] MEDS ORDERED: LORazepam 1 MG TABLET PO PRN (14:45)
[2021-11-01] MEDS ORDERED: BENZOCAINE/MENTHOL (CHLORASEPTIC ) LOZENGE MM PRN (14:45)
[2021-11-01] MEDS ORDERED: BISMUTH SUBSALICYLATE 262 MG/15 ML BTL PO PRN (14:45)
[2021-11-01] MEDS ORDERED: METHOCARBAMOL 500 MG TABLET PO PRN (14:45)
[2021-11-01] MEDS ORDERED: LOPERAMIDE HCL 2 MG CAPSULE PO PRN (14:45)
[2021-11-01] MEDS ORDERED: ACETAMINOPHEN 325 MG TABLET (FP) PO PRN ×2 (14:45)
[2021-11-01] MEDS ORDERED: IBUPROFEN 400 MG TABLET (FP) PO PRN (14:45)
[2021-11-01] MEDS ORDERED: MAGNESIUM HYDROX 2400MG/30ML ORAL SUSPENSION 30 ML CUP PO PRN (14:45)
[2021-11-01] MEDS ORDERED: IBUPROFEN 600 MG TABLET (FP) PO PRN (14:45)
[2021-11-01] MEDS ORDERED: DICYCLOMINE HCL 10 MG CAPSULE PO PRN (14:45)
[2021-11-01 17:31] LABS: HEMATOCRIT 40.4 % (35.4-49); HEMOGLOBIN 13.5 GM/dL (11.7-16.9); MCH 30.1 pg (25.7-33.7); MCHC 33.5 g/dl (32.0-35.9); MEAN CELL VOLUME 89.7 fl (80-96); MEAN PLT VOLUME 7.5 fl (7.5-11.1); PLATELET COUNT 221 10^3/uL (134-434); RDW 14.6 % (11.9-15.9); WHITE BLOOD COUNT 8.2 K/mm3 (4.0-10.0)
[2021-11-01 17:42] LABS: ALBUMIN 3.5 g/dl (3.4-5.0); CALCIUM 8.1 mg/dL (8.5-10.1)
[2021-11-01 17:45] LABS: CREATININE 0.8 mg/dL (0.55-1.3)
[2021-11-01 17:47] LABS: BILIRUBIN,TOTAL 0.8 mg/dL (0.2-1)
[2021-11-01] MEDS: hydrOXYzine PAMOATE 25 MG CAPSULE (FP) PO SCH ×2 (17:55→22:43)
[2021-11-01] MEDS: LORazepam 2 MG TABLET PO SCH ×2 (17:56→22:42)
[2021-11-01] MEDS: PRENATAL VITAMINS W/ FOLIC ACID TABLET (FP) PO SCH (18:13)
[2021-11-01] MEDS: MELATONIN 5 MG TABLETS PO SCH (22:43)
[2021-11-01] MEDS: THIAMINE HCL 100 MG TABLET (FP) PO SCH (22:43)
[2021-11-02] MEDS: hydrOXYzine PAMOATE 25 MG CAPSULE (FP) PO SCH ×6 (05:17→22:14)
[2021-11-02] MEDS: LORazepam 2 MG TABLET PO SCH ×4 (05:17→22:14)
[2021-11-02] MEDS: PRENATAL VITAMINS W/ FOLIC ACID TABLET (FP) PO SCH (10:30)
[2021-11-02] MEDS ORDERED: BISMUTH SUBSALICYLATE 524 MG/30 ML PO ONE (16:42)
[2021-11-02] MEDS ORDERED: SIMETHICONE 80 MG TAB.CHEW (FP) PO ONE (16:45)
[2021-11-02] MEDS: MELATONIN 5 MG TABLETS PO SCH (22:13)
[2021-11-02] MEDS: GABAPENTIN 400 MG CAPSULE PO SCH (22:14)
[2021-11-02] MEDS: THIAMINE HCL 100 MG TABLET (FP) PO SCH (22:14)
[2021-11-03] MEDS ORDERED: LORazepam 1 MG TABLET PO SCH (05:00)
[2021-11-03] MEDS: hydrOXYzine PAMOATE 25 MG CAPSULE (FP) PO SCH ×2 (06:23→11:06)
[2021-11-03] MEDS: GABAPENTIN 400 MG CAPSULE PO SCH (06:23)
[2021-11-03 09:58] VITALS: BP 114/78; PULSE 78; TEMP 98.3
[2021-11-03] MEDS ORDERED: SERTRALINE HCL 50 MG TABLET (FP) PO SCH (10:00)
[2021-11-03] MEDS: PRENATAL VITAMINS W/ FOLIC ACID TABLET (FP) PO SCH (11:06)
[2021-11-04] MEDS ORDERED: LORazepam 0.5 MG TABLET PO PRN
[2021-11-04] MEDS ORDERED: LORazepam 0.5 MG TABLET PO SCH (05:00)
[2021-11-05] MEDS ORDERED: LORazepam 0.5 MG TABLET PO ONE (05:00)
== END 2021-11-03 11:43 | disposition home or self-care (01) | DRG 775 ==
LOC: YASAS 13:01 → Y3N 15:02
PROVIDERS: ADMIT Allergy & Immunology; ATTEND Surgery
PROC: HZ2ZZZZ Detoxification Services for Substance Abuse Treatment (ICD-10-PCS; principal; 2021-11-01)
DX: F10.230 Alcohol dependence with withdrawal, uncomplicated (principal); F41.9 Anxiety disorder, unspecified; F42.9 Obsessive-compulsive disorder, unspecified; M54.50 Low back pain, unspecified; Z59.00 Homelessness unspecified; Z56.0 Unemployment, unspecified
CPT/HCPCS: 36415; 80053; 85027; 86780; C9803-CS; U0003; U0005

== ENCOUNTER 2021-11-26 11:55 | Inpatient (IN) | payer OTHER ==
[2021-11-26 12:53] VITALS: BMI 30.1
[2021-11-26] MEDS ORDERED: DICYCLOMINE HCL 10 MG CAPSULE PO PRN (15:47)
[2021-11-26] MEDS ORDERED: ONDANSETRON *ODT* 4 MG TABLET SL PRN (15:47)
[2021-11-26] MEDS ORDERED: BISMUTH SUBSALICYLATE 524 MG/30 ML PO PRN (15:47)
[2021-11-26] MEDS ORDERED: IBUPROFEN 600 MG TABLET (FP) PO PRN (15:47)
[2021-11-26] MEDS ORDERED: IBUPROFEN 400 MG TABLET (FP) PO PRN (15:47)
[2021-11-26] MEDS ORDERED: ACETAMINOPHEN 325 MG TABLET (FP) PO PRN ×2 (15:47)
[2021-11-26] MEDS ORDERED: MAG HYDROX/AL HYDROX/SIMETH 30 ML UNIT-DOSE CUP PO PRN (15:47)
[2021-11-26] MEDS ORDERED: METHOCARBAMOL 500 MG TABLET PO PRN (15:47)
[2021-11-26] MEDS ORDERED: MAGNESIUM HYDROX 2400MG/30ML ORAL SUSPENSION 30 ML CUP PO PRN (15:47)
[2021-11-26] MEDS ORDERED: MAGNESIUM CITRATE 300 ML BOTTLE PO PRN (15:47)
[2021-11-26] MEDS ORDERED: LORazepam 1 MG TABLET PO PRN (15:47)
[2021-11-26] MEDS ORDERED: BENZOCAINE/MENTHOL (CHLORASEPTIC ) LOZENGE MM PRN (15:47)
[2021-11-26] MEDS: LORazepam 2 MG TABLET PO SCH ×2 (17:38→22:29)
[2021-11-26] MEDS: hydrOXYzine PAMOATE 25 MG CAPSULE (FP) PO SCH ×2 (17:39→22:29)
[2021-11-26] MEDS: THIAMINE HCL 100 MG TABLET (FP) PO SCH (22:29)
[2021-11-26] MEDS: MELATONIN 5 MG TABLETS PO SCH (22:30)
[2021-11-27] MEDS: LORazepam 2 MG TABLET PO SCH ×4 (05:20→22:28)
[2021-11-27] MEDS: hydrOXYzine PAMOATE 25 MG CAPSULE (FP) PO SCH ×5 (05:20→22:28)
[2021-11-27] MEDS: SERTRALINE HCL 50 MG TABLET (FP) PO SCH (10:23)
[2021-11-27] MEDS: PRENATAL VITAMINS W/ FOLIC ACID TABLET (FP) PO SCH (10:23)
[2021-11-27 10:51] LABS: HEMATOCRIT 42.5 % (35.4-49); HEMOGLOBIN 14.4 GM/dL (11.7-16.9); MCH 30.7 pg (25.7-33.7); MEAN CELL VOLUME 90.2 fl (80-96); PLATELET COUNT 145 10^3/uL (134-434); RBC 4.71 M/mm3 (4.00-5.60); RDW 17.4 % (11.9-15.9); WHITE BLOOD COUNT 4.2 K/mm3 (4.0-10.0)
[2021-11-27 12:10] LABS: CALCIUM 8.5 mg/dL (8.5-10.1)
[2021-11-27 12:11] LABS: BLOOD UREA NITROGEN 5.2 mg/dL (7-18)
[2021-11-27 12:12] LABS: ALBUMIN 3.2 g/dl (3.4-5.0)
[2021-11-27 12:14] LABS: CREATININE 0.7 mg/dL (0.55-1.3)
[2021-11-27 12:16] LABS: BILIRUBIN,TOTAL 1.1 mg/dL (0.2-1); TOT PROT 6.8 g/dl (6.4-8.2)
[2021-11-27] MEDS: GABAPENTIN 400 MG CAPSULE PO SCH ×2 (13:44→22:28)
[2021-11-27] MEDS: LOPERAMIDE HCL 2 MG CAPSULE PO PRN (18:01)
[2021-11-27] MEDS: THIAMINE HCL 100 MG TABLET (FP) PO SCH (22:28)
[2021-11-27] MEDS: MELATONIN 5 MG TABLETS PO SCH (22:29)
[2021-11-28] MEDS: GABAPENTIN 400 MG CAPSULE PO SCH ×3 (05:12→22:22)
[2021-11-28] MEDS: LORazepam 1 MG TABLET PO SCH ×4 (05:12→22:21)
[2021-11-28] MEDS: hydrOXYzine PAMOATE 25 MG CAPSULE (FP) PO SCH ×5 (05:12→22:22)
[2021-11-28] MEDS: SERTRALINE HCL 50 MG TABLET (FP) PO SCH (10:08)
[2021-11-28] MEDS: PRENATAL VITAMINS W/ FOLIC ACID TABLET (FP) PO SCH (10:08)
[2021-11-28] MEDS: MELATONIN 5 MG TABLETS PO SCH (22:22)
[2021-11-28] MEDS: THIAMINE HCL 100 MG TABLET (FP) PO SCH (22:22)
[2021-11-29] MEDS ORDERED: LORazepam 0.5 MG TABLET PO PRN
[2021-11-29] MEDS: hydrOXYzine PAMOATE 25 MG CAPSULE (FP) PO SCH ×5 (05:32→22:30)
[2021-11-29] MEDS: GABAPENTIN 400 MG CAPSULE PO SCH ×3 (05:32→22:28)
[2021-11-29] MEDS: LORazepam 0.5 MG TABLET PO SCH ×4 (05:33→22:28)
[2021-11-29] MEDS: PRENATAL VITAMINS W/ FOLIC ACID TABLET (FP) PO SCH (10:22)
[2021-11-29] MEDS: SERTRALINE HCL 50 MG TABLET (FP) PO SCH (10:22)
[2021-11-29] MEDS: LOPERAMIDE HCL 2 MG CAPSULE PO PRN ×2 (12:35→22:32)
[2021-11-29 15:49] LABS: BLOOD UREA NITROGEN 9.1 mg/dL (7-18)
[2021-11-29 15:54] LABS: BILIRUBIN,TOTAL 0.5 mg/dL (0.2-1)
[2021-11-29] MEDS: THIAMINE HCL 100 MG TABLET (FP) PO SCH (22:28)
[2021-11-29] MEDS: MELATONIN 5 MG TABLETS PO SCH (22:29)
[2021-11-30] MEDS ORDERED: LORazepam 0.5 MG TABLET PO ONE (05:00)
[2021-11-30] MEDS: GABAPENTIN 400 MG CAPSULE PO SCH (05:14)
[2021-11-30] MEDS: hydrOXYzine PAMOATE 25 MG CAPSULE (FP) PO SCH (05:14)
[2021-11-30 09:20] VITALS: BP 126/84; PULSE 101; RESP 20; TEMP 98.2
== END 2021-11-30 09:45 | disposition home or self-care (01) | DRG 775 ==
LOC: YASAS 11:55 → Y6N 15:49
PROVIDERS: ADMIT Allergy & Immunology; ATTEND Surgery
PROC: HZ2ZZZZ Detoxification Services for Substance Abuse Treatment (ICD-10-PCS; principal; 2021-11-26)
DX: F10.230 Alcohol dependence with withdrawal, uncomplicated (principal); F10.24 Alcohol dependence with alcohol-induced mood disorder; F10.282 Alcohol dependence with alcohol-induced sleep disorder; F33.9 Major depressive disorder, recurrent, unspecified; F41.9 Anxiety disorder, unspecified; M54.59 Other low back pain; G89.29 Other chronic pain; E66.9 Obesity, unspecified; Z68.30 Body mass index [BMI] 30.0-30.9, adult; Z56.0 Unemployment, unspecified; Z59.00 Homelessness unspecified
CPT/HCPCS: 36415; 80053; 82247; 82947; 83036; 84450; 84520; 85027; 86780; C9803-CS; U0003; U0005

== ENCOUNTER 2022-06-19 12:26 | Inpatient (IN) | payer OTHER ==
[2022-06-19 13:15] VITALS: BMI 28.5
[2022-06-19] MEDS ORDERED: MAGNESIUM HYDROX 2400MG/30ML ORAL SUSPENSION 30 ML CUP PO PRN (15:22)
[2022-06-19] MEDS ORDERED: LORazepam 1 MG TABLET PO PRN (15:22)
[2022-06-19] MEDS ORDERED: ONDANSETRON *ODT* 4 MG TABLET SL PRN (15:22)
[2022-06-19] MEDS ORDERED: ACETAMINOPHEN 325 MG TABLET (FP) PO PRN ×2 (15:22)
[2022-06-19] MEDS ORDERED: IBUPROFEN 600 MG TABLET (FP) PO PRN (15:22)
[2022-06-19] MEDS ORDERED: hydrOXYzine PAMOATE 25 MG CAPSULE (FP) PO PRN (15:22)
[2022-06-19] MEDS ORDERED: DICYCLOMINE HCL 10 MG CAPSULE PO PRN (15:22)
[2022-06-19] MEDS ORDERED: MAG HYDROX/AL HYDROX/SIMETH 30 ML UNIT-DOSE CUP PO PRN (15:22)
[2022-06-19] MEDS ORDERED: BENZOCAINE/MENTHOL (CHLORASEPTIC ) LOZENGE MM PRN (15:22)
[2022-06-19] MEDS ORDERED: POLYETHYLENE GLYCOL (HEALTHYLAX) 3350 17 GM PACKET PO PRN (15:22)
[2022-06-19] MEDS ORDERED: IBUPROFEN 400 MG TABLET (FP) PO PRN (15:22)
[2022-06-19] MEDS ORDERED: METHOCARBAMOL 500 MG TABLET PO PRN (15:22)
[2022-06-19] MEDS ORDERED: TRIMETHOBENZAMIDE HCL 200MG/2ML INJ IM PRN (15:32)
[2022-06-19] MEDS ORDERED: LOPERAMIDE HCL 2 MG CAPSULE ONE (15:52)
[2022-06-19] MEDS: LOPERAMIDE HCL 2 MG CAPSULE PO PRN (15:56)
[2022-06-19] MEDS ORDERED: LOPERAMIDE HCL 2 MG CAPSULE PO PRN (16:00)
[2022-06-19] MEDS: LORazepam 2 MG TABLET PO SCH ×2 (17:02→22:19)
[2022-06-19] MEDS: THIAMINE HCL 100 MG TABLET (FP) PO SCH (22:19)
[2022-06-19] MEDS: MELATONIN 5 MG TABLETS PO SCH (22:20)
[2022-06-19] MEDS: BISMUTH SUBSALICYLATE 262 MG/15 ML BTL PO PRN (22:23)
[2022-06-20] MEDS: LORazepam 2 MG TABLET PO SCH ×4 (05:39→22:22)
[2022-06-20] MEDS: SERTRALINE HCL 50 MG TABLET (FP) PO SCH (10:27)
[2022-06-20] MEDS: PRENATAL VITAMINS W/ FOLIC ACID TABLET (FP) PO SCH (10:27)
[2022-06-20] MEDS: BISMUTH SUBSALICYLATE 262 MG/15 ML BTL PO PRN ×2 (10:30→17:42)
[2022-06-20] MEDS: GABAPENTIN 300 MG CAPSULE PO SCH ×2 (13:30→22:21)
[2022-06-20 13:38] LABS: HEMATOCRIT 41.8 % (35.4-49); MCH 31.9 pg (25.7-33.7); MCHC 33.4 g/dl (32.0-35.9); MEAN CELL VOLUME 95.4 fl (80-96); MEAN PLT VOLUME 8.4 fl (7.5-11.1); PLATELET COUNT 247 10^3/uL (134-434); RBC 4.38 M/mm3 (4.00-5.60); RDW 17.4 % (11.9-15.9); WHITE BLOOD COUNT 3.9 K/mm3 (4.0-10.0)
[2022-06-20 14:49] LABS: ALBUMIN 3.3 g/dl (3.4-5.0); BLOOD UREA NITROGEN 5.5 mg/dL (7-18)
[2022-06-20 14:50] LABS: CALCIUM 8.5 mg/dL (8.5-10.1)
[2022-06-20 14:53] LABS: CREATININE 0.7 mg/dL (0.55-1.3)
[2022-06-20 14:54] LABS: TOT PROT 6.9 g/dl (6.4-8.2)
[2022-06-20 14:56] LABS: BILIRUBIN,TOTAL 0.7 mg/dL (0.2-1)
[2022-06-20] MEDS: MELATONIN 5 MG TABLETS PO SCH (22:21)
[2022-06-20] MEDS: THIAMINE HCL 100 MG TABLET (FP) PO SCH (22:21)
[2022-06-21] MEDS: LORazepam 1 MG TABLET PO SCH ×4 (05:51→22:24)
[2022-06-21] MEDS: GABAPENTIN 300 MG CAPSULE PO SCH ×3 (07:00→22:24)
[2022-06-21] MEDS: SERTRALINE HCL 50 MG TABLET (FP) PO SCH (10:11)
[2022-06-21] MEDS: PRENATAL VITAMINS W/ FOLIC ACID TABLET (FP) PO SCH (10:11)
[2022-06-21] MEDS: LACTULOSE 20 GM/30 ML UDC (FOR ORAL USE ONLY) PO SCH ×2 (13:53→22:25)
[2022-06-21] MEDS: LOPERAMIDE HCL 2 MG CAPSULE PO PRN (15:36)
[2022-06-21] MEDS: MELATONIN 5 MG TABLETS PO SCH (22:24)
[2022-06-21] MEDS: THIAMINE HCL 100 MG TABLET (FP) PO SCH (22:24)
[2022-06-22] MEDS ORDERED: LORazepam 0.5 MG TABLET PO PRN
[2022-06-22] MEDS: LORazepam 0.5 MG TABLET PO SCH ×4 (06:07→22:09)
[2022-06-22] MEDS: GABAPENTIN 300 MG CAPSULE PO SCH ×3 (06:07→22:09)
[2022-06-22] MEDS: LACTULOSE 20 GM/30 ML UDC (FOR ORAL USE ONLY) PO SCH ×3 (06:08→22:11)
[2022-06-22] MEDS: SERTRALINE HCL 50 MG TABLET (FP) PO SCH (10:06)
[2022-06-22] MEDS: PRENATAL VITAMINS W/ FOLIC ACID TABLET (FP) PO SCH (10:06)
[2022-06-22] MEDS: THIAMINE HCL 100 MG TABLET (FP) PO SCH (22:09)
[2022-06-22] MEDS: MELATONIN 5 MG TABLETS PO SCH (22:10)
[2022-06-23] MEDS ORDERED: LORazepam 0.5 MG TABLET PO ONE (05:00)
[2022-06-23] MEDS: GABAPENTIN 300 MG CAPSULE PO SCH ×2 (05:43→14:00)
[2022-06-23] MEDS: LACTULOSE 20 GM/30 ML UDC (FOR ORAL USE ONLY) PO SCH ×2 (05:44→14:00)
[2022-06-23] MEDS: PRENATAL VITAMINS W/ FOLIC ACID TABLET (FP) PO SCH (10:25)
[2022-06-23] MEDS: SERTRALINE HCL 50 MG TABLET (FP) PO SCH (10:25)
[2022-06-23 13:13] VITALS: RESP 18
[2022-06-23 17:55] VITALS: BP 118/75; PULSE 77; TEMP 97.3
== END 2022-06-23 19:04 | disposition other institution (70) | DRG 775 ==
LOC: YASAS 12:26 → Y6N 16:27
PROVIDERS: ADMIT Allergy & Immunology; ATTEND Surgery
PROC: HZ2ZZZZ Detoxification Services for Substance Abuse Treatment (ICD-10-PCS; principal; 2022-06-19)
DX: F10.230 Alcohol dependence with withdrawal, uncomplicated (principal); F10.24 Alcohol dependence with alcohol-induced mood disorder; F42.9 Obsessive-compulsive disorder, unspecified; F41.9 Anxiety disorder, unspecified; E72.20 Disorder of urea cycle metabolism, unspecified; F10.282 Alcohol dependence with alcohol-induced sleep disorder; E87.6 Hypokalemia; M54.50 Low back pain, unspecified; G89.29 Other chronic pain; R74.01 Elevation of levels of liver transaminase levels
CPT/HCPCS: 36415; 80053; 82140; 85027; 86780; 87811; C9803-CS; U0003; U0005

== ENCOUNTER 2022-06-23 19:11 | Inpatient (IN) | payer OTHER ==
[~2022-06-23 19:11] MED LIST: ACETAMINOPHEN 325 MG TABLET (FP) PO PRN; BENZOCAINE/MENTHOL (CHLORASEPTIC ) LOZENGE MM PRN; IBUPROFEN 400 MG TABLET (FP) PO PRN; LOPERAMIDE HCL 2 MG CAPSULE PO PRN; MAG HYDROX/AL HYDROX/SIMETH 30 ML UNIT-DOSE CUP PO PRN; MAGNESIUM HYDROX 2400MG/30ML ORAL SUSPENSION 30 ML CUP PO PRN; NICOTINE 10 MG CARTRIDGE (INHALER) IH PRN; NICOTINE POLACRILEX 2 MG GUM BUC PRN; POLYETHYLENE GLYCOL (HEALTHYLAX) 3350 17 GM PACKET PO PRN; guaiFENesin 200 MG/10 ML 10 ML UNIT-DOSE CUPS PO PRN; hydrOXYzine PAMOATE 25 MG CAPSULE (FP) PO PRN
[2022-06-23] MEDS: GABAPENTIN 300 MG CAPSULE PO SCH (21:05)
[2022-06-23] MEDS: MELATONIN 5 MG TABLETS PO SCH (21:05)
[2022-06-23] MEDS: LACTULOSE 20 GM/30 ML UDC (FOR ORAL USE ONLY) PO SCH (21:05)
[2022-06-23] MEDS: THIAMINE HCL 100 MG TABLET (FP) PO SCH (21:06)
[2022-06-24] MEDS: GABAPENTIN 300 MG CAPSULE PO SCH ×3 (06:13→21:12)
[2022-06-24] MEDS: LACTULOSE 20 GM/30 ML UDC (FOR ORAL USE ONLY) PO SCH ×3 (07:06→21:13)
[2022-06-24] MEDS: PRENATAL VITAMINS W/ FOLIC ACID TABLET (FP) PO SCH (09:28)
[2022-06-24] MEDS ORDERED: SERTRALINE HCL 50 MG TABLET (FP) PO SCH ×2 (10:00→13:00)
[2022-06-24] MEDS ORDERED: SERTRALINE HCL 50 MG TABLET (FP) PO ONE (13:00)
[2022-06-24] MEDS: MELATONIN 5 MG TABLETS PO SCH (21:12)
[2022-06-24] MEDS: THIAMINE HCL 100 MG TABLET (FP) PO SCH (21:12)
[2022-06-25] MEDS: GABAPENTIN 300 MG CAPSULE PO SCH ×3 (06:16→21:10)
[2022-06-25] MEDS: LACTULOSE 20 GM/30 ML UDC (FOR ORAL USE ONLY) PO SCH ×3 (06:16→21:10)
[2022-06-25] MEDS: PRENATAL VITAMINS W/ FOLIC ACID TABLET (FP) PO SCH (09:28)
[2022-06-25] MEDS: SERTRALINE HCL 50 MG TABLET (FP) PO SCH (09:29)
[2022-06-25] MEDS: THIAMINE HCL 100 MG TABLET (FP) PO SCH (21:10)
[2022-06-25] MEDS: MELATONIN 5 MG TABLETS PO SCH (21:10)
[2022-06-26] MEDS: GABAPENTIN 300 MG CAPSULE PO SCH ×3 (06:19→21:37)
[2022-06-26] MEDS: LACTULOSE 20 GM/30 ML UDC (FOR ORAL USE ONLY) PO SCH ×3 (06:20→21:37)
[2022-06-26] MEDS: SERTRALINE HCL 50 MG TABLET (FP) PO SCH (09:21)
[2022-06-26] MEDS: PRENATAL VITAMINS W/ FOLIC ACID TABLET (FP) PO SCH (09:21)
[2022-06-26] MEDS: MELATONIN 5 MG TABLETS PO SCH (21:37)
[2022-06-26] MEDS: THIAMINE HCL 100 MG TABLET (FP) PO SCH (21:38)
[2022-06-27] MEDS: GABAPENTIN 300 MG CAPSULE PO SCH ×3 (07:09→21:06)
[2022-06-27] MEDS: LACTULOSE 20 GM/30 ML UDC (FOR ORAL USE ONLY) PO SCH ×3 (07:09→21:07)
[2022-06-27] MEDS: SERTRALINE HCL 50 MG TABLET (FP) PO SCH (09:43)
[2022-06-27] MEDS: PRENATAL VITAMINS W/ FOLIC ACID TABLET (FP) PO SCH (09:43)
[2022-06-27] MEDS: THIAMINE HCL 100 MG TABLET (FP) PO SCH (21:06)
[2022-06-27] MEDS: MELATONIN 5 MG TABLETS PO SCH (21:06)
[2022-06-28] MEDS: GABAPENTIN 300 MG CAPSULE PO SCH ×3 (06:31→21:08)
[2022-06-28] MEDS: LACTULOSE 20 GM/30 ML UDC (FOR ORAL USE ONLY) PO SCH ×3 (06:31→21:08)
[2022-06-28] MEDS: PRENATAL VITAMINS W/ FOLIC ACID TABLET (FP) PO SCH (09:28)
[2022-06-28] MEDS: SERTRALINE HCL 50 MG TABLET (FP) PO SCH (09:28)
[2022-06-28] MEDS: THIAMINE HCL 100 MG TABLET (FP) PO SCH (21:08)
[2022-06-28] MEDS: MELATONIN 5 MG TABLETS PO SCH (21:08)
[2022-06-29] MEDS: LACTULOSE 20 GM/30 ML UDC (FOR ORAL USE ONLY) PO SCH ×3 (07:05→22:14)
[2022-06-29] MEDS: GABAPENTIN 300 MG CAPSULE PO SCH ×3 (07:06→22:14)
[2022-06-29] MEDS: PRENATAL VITAMINS W/ FOLIC ACID TABLET (FP) PO SCH (09:33)
[2022-06-29] MEDS: SERTRALINE HCL 50 MG TABLET (FP) PO SCH (09:34)
[2022-06-29] MEDS: MELATONIN 5 MG TABLETS PO SCH (22:14)
[2022-06-29] MEDS: THIAMINE HCL 100 MG TABLET (FP) PO SCH (22:14)
[2022-06-30] MEDS: GABAPENTIN 300 MG CAPSULE PO SCH ×3 (06:45→21:14)
[2022-06-30] MEDS: LACTULOSE 20 GM/30 ML UDC (FOR ORAL USE ONLY) PO SCH ×3 (06:47→21:15)
[2022-06-30] MEDS: PRENATAL VITAMINS W/ FOLIC ACID TABLET (FP) PO SCH (09:35)
[2022-06-30] MEDS: SERTRALINE HCL 50 MG TABLET (FP) PO SCH (09:35)
[2022-06-30] MEDS: MELATONIN 5 MG TABLETS PO SCH (21:14)
[2022-06-30] MEDS: THIAMINE HCL 100 MG TABLET (FP) PO SCH (21:14)
[2022-07-01] MEDS: GABAPENTIN 300 MG CAPSULE PO SCH ×3 (07:14→21:11)
[2022-07-01] MEDS: LACTULOSE 20 GM/30 ML UDC (FOR ORAL USE ONLY) PO SCH ×3 (07:15→21:11)
[2022-07-01] MEDS: PRENATAL VITAMINS W/ FOLIC ACID TABLET (FP) PO SCH (09:29)
[2022-07-01] MEDS: SERTRALINE HCL 50 MG TABLET (FP) PO SCH (09:29)
[2022-07-01] MEDS: THIAMINE HCL 100 MG TABLET (FP) PO SCH (21:11)
[2022-07-01] MEDS: MELATONIN 5 MG TABLETS PO SCH (21:11)
[2022-07-02] MEDS: GABAPENTIN 300 MG CAPSULE PO SCH ×3 (06:59→21:59)
[2022-07-02] MEDS: LACTULOSE 20 GM/30 ML UDC (FOR ORAL USE ONLY) PO SCH ×3 (07:00→21:59)
[2022-07-02] MEDS: PRENATAL VITAMINS W/ FOLIC ACID TABLET (FP) PO SCH (09:28)
[2022-07-02] MEDS: SERTRALINE HCL 50 MG TABLET (FP) PO SCH (09:28)
[2022-07-02] MEDS ORDERED: MINERAL OIL/PETROLAT/WATER TOPICAL CREAM 113 GM JAR TP PRN (15:03)
[2022-07-02] MEDS: THIAMINE HCL 100 MG TABLET (FP) PO SCH (21:58)
[2022-07-02] MEDS: MELATONIN 5 MG TABLETS PO SCH (21:58)
[2022-07-03] MEDS: GABAPENTIN 300 MG CAPSULE PO SCH ×3 (06:24→21:38)
[2022-07-03] MEDS: LACTULOSE 20 GM/30 ML UDC (FOR ORAL USE ONLY) PO SCH ×3 (06:25→21:39)
[2022-07-03] MEDS: PRENATAL VITAMINS W/ FOLIC ACID TABLET (FP) PO SCH (10:05)
[2022-07-03] MEDS: SERTRALINE HCL 50 MG TABLET (FP) PO SCH (10:06)
[2022-07-03 15:33] LABS: CALCIUM 9.4 mg/dL (8.5-10.1)
[2022-07-03 15:36] LABS: CREATININE 0.9 mg/dL (0.55-1.3)
[2022-07-03 15:38] LABS: BILIRUBIN,TOTAL 0.4 mg/dL (0.2-1); TOT PROT 7.4 g/dl (6.4-8.2)
[2022-07-03] MEDS: MELATONIN 5 MG TABLETS PO SCH (21:38)
[2022-07-03] MEDS: THIAMINE HCL 100 MG TABLET (FP) PO SCH (21:38)
[2022-07-04] MEDS: GABAPENTIN 300 MG CAPSULE PO SCH ×3 (06:14→21:31)
[2022-07-04] MEDS: LACTULOSE 20 GM/30 ML UDC (FOR ORAL USE ONLY) PO SCH ×3 (06:15→21:33)
[2022-07-04] MEDS: PRENATAL VITAMINS W/ FOLIC ACID TABLET (FP) PO SCH (10:04)
[2022-07-04] MEDS: SERTRALINE HCL 50 MG TABLET (FP) PO SCH (10:05)
[2022-07-04] MEDS: MELATONIN 5 MG TABLETS PO SCH (21:31)
[2022-07-04] MEDS: THIAMINE HCL 100 MG TABLET (FP) PO SCH (21:31)
[2022-07-05] MEDS: LACTULOSE 20 GM/30 ML UDC (FOR ORAL USE ONLY) PO SCH ×3 (06:49→21:33)
[2022-07-05] MEDS: GABAPENTIN 300 MG CAPSULE PO SCH ×3 (06:50→21:33)
[2022-07-05] MEDS: PRENATAL VITAMINS W/ FOLIC ACID TABLET (FP) PO SCH (10:02)
[2022-07-05] MEDS: SERTRALINE HCL 50 MG TABLET (FP) PO SCH (10:03)
[2022-07-05] MEDS: THIAMINE HCL 100 MG TABLET (FP) PO SCH (21:33)
[2022-07-05] MEDS: MELATONIN 5 MG TABLETS PO SCH (21:33)
[2022-07-06] MEDS: GABAPENTIN 300 MG CAPSULE PO SCH ×3 (06:03→21:46)
[2022-07-06] MEDS: LACTULOSE 20 GM/30 ML UDC (FOR ORAL USE ONLY) PO SCH ×3 (06:04→21:46)
[2022-07-06] MEDS: PRENATAL VITAMINS W/ FOLIC ACID TABLET (FP) PO SCH (10:19)
[2022-07-06] MEDS: SERTRALINE HCL 50 MG TABLET (FP) PO SCH (10:19)
[2022-07-06] MEDS: MELATONIN 5 MG TABLETS PO SCH (21:46)
[2022-07-06] MEDS: THIAMINE HCL 100 MG TABLET (FP) PO SCH (21:46)
[2022-07-07] MEDS: GABAPENTIN 300 MG CAPSULE PO SCH ×3 (06:25→21:38)
[2022-07-07] MEDS: LACTULOSE 20 GM/30 ML UDC (FOR ORAL USE ONLY) PO SCH ×3 (06:26→21:39)
[2022-07-07] MEDS: PRENATAL VITAMINS W/ FOLIC ACID TABLET (FP) PO SCH (10:11)
[2022-07-07] MEDS: SERTRALINE HCL 50 MG TABLET (FP) PO SCH (10:11)
[2022-07-07] MEDS: MELATONIN 5 MG TABLETS PO SCH (21:38)
[2022-07-07] MEDS: THIAMINE HCL 100 MG TABLET (FP) PO SCH (21:38)
[2022-07-08] MEDS: LACTULOSE 20 GM/30 ML UDC (FOR ORAL USE ONLY) PO SCH ×3 (06:19→21:46)
[2022-07-08] MEDS: GABAPENTIN 300 MG CAPSULE PO SCH ×3 (06:19→21:44)
[2022-07-08] MEDS: PRENATAL VITAMINS W/ FOLIC ACID TABLET (FP) PO SCH (10:14)
[2022-07-08] MEDS: SERTRALINE HCL 50 MG TABLET (FP) PO SCH (10:15)
[2022-07-08] MEDS: THIAMINE HCL 100 MG TABLET (FP) PO SCH (21:44)
[2022-07-08] MEDS: MELATONIN 5 MG TABLETS PO SCH (21:44)
[2022-07-09] MEDS: GABAPENTIN 300 MG CAPSULE PO SCH ×3 (06:45→21:44)
[2022-07-09] MEDS: LACTULOSE 20 GM/30 ML UDC (FOR ORAL USE ONLY) PO SCH ×3 (06:45→21:45)
[2022-07-09] MEDS: SERTRALINE HCL 50 MG TABLET (FP) PO SCH (10:25)
[2022-07-09] MEDS: PRENATAL VITAMINS W/ FOLIC ACID TABLET (FP) PO SCH (10:25)
[2022-07-09] MEDS: THIAMINE HCL 100 MG TABLET (FP) PO SCH (21:44)
[2022-07-09] MEDS: MELATONIN 5 MG TABLETS PO SCH (21:44)
[2022-07-10] MEDS: GABAPENTIN 300 MG CAPSULE PO SCH ×3 (06:10→21:39)
[2022-07-10] MEDS: LACTULOSE 20 GM/30 ML UDC (FOR ORAL USE ONLY) PO SCH ×3 (06:10→21:40)
[2022-07-10] MEDS: PRENATAL VITAMINS W/ FOLIC ACID TABLET (FP) PO SCH (10:35)
[2022-07-10] MEDS: SERTRALINE HCL 50 MG TABLET (FP) PO SCH (10:35)
[2022-07-10] MEDS ORDERED: TUBERCULIN PPD 5 TU/0.1ML VIAL ID ONE (15:13)
[2022-07-10] MEDS: THIAMINE HCL 100 MG TABLET (FP) PO SCH (21:39)
[2022-07-10] MEDS: MELATONIN 5 MG TABLETS PO SCH (21:39)
[2022-07-11] MEDS: LACTULOSE 20 GM/30 ML UDC (FOR ORAL USE ONLY) PO SCH ×3 (07:46→22:12)
[2022-07-11] MEDS: GABAPENTIN 300 MG CAPSULE PO SCH ×3 (07:46→22:11)
[2022-07-11] MEDS: PRENATAL VITAMINS W/ FOLIC ACID TABLET (FP) PO SCH (10:26)
[2022-07-11] MEDS: SERTRALINE HCL 50 MG TABLET (FP) PO SCH (10:26)
[2022-07-11] MEDS: THIAMINE HCL 100 MG TABLET (FP) PO SCH (22:11)
[2022-07-11] MEDS: MELATONIN 5 MG TABLETS PO SCH (22:11)
[2022-07-12] MEDS: GABAPENTIN 300 MG CAPSULE PO SCH ×3 (06:14→21:37)
[2022-07-12] MEDS: LACTULOSE 20 GM/30 ML UDC (FOR ORAL USE ONLY) PO SCH ×3 (06:14→21:37)
[2022-07-12] MEDS: PRENATAL VITAMINS W/ FOLIC ACID TABLET (FP) PO SCH (09:44)
[2022-07-12] MEDS: SERTRALINE HCL 50 MG TABLET (FP) PO SCH (09:45)
[2022-07-12] MEDS: THIAMINE HCL 100 MG TABLET (FP) PO SCH (21:37)
[2022-07-12] MEDS: MELATONIN 5 MG TABLETS PO SCH (21:37)
[2022-07-13] MEDS: GABAPENTIN 300 MG CAPSULE PO SCH ×3 (07:00→21:37)
[2022-07-13] MEDS: LACTULOSE 20 GM/30 ML UDC (FOR ORAL USE ONLY) PO SCH ×3 (07:00→21:38)
[2022-07-13] MEDS: SERTRALINE HCL 50 MG TABLET (FP) PO SCH (10:27)
[2022-07-13] MEDS: PRENATAL VITAMINS W/ FOLIC ACID TABLET (FP) PO SCH (10:27)
[2022-07-13] MEDS: THIAMINE HCL 100 MG TABLET (FP) PO SCH (21:37)
[2022-07-13] MEDS: MELATONIN 5 MG TABLETS PO SCH (21:37)
[2022-07-14] MEDS: LACTULOSE 20 GM/30 ML UDC (FOR ORAL USE ONLY) PO SCH ×3 (07:07→21:36)
[2022-07-14] MEDS: GABAPENTIN 300 MG CAPSULE PO SCH ×3 (07:07→21:36)
[2022-07-14] MEDS: PRENATAL VITAMINS W/ FOLIC ACID TABLET (FP) PO SCH (10:07)
[2022-07-14] MEDS: SERTRALINE HCL 50 MG TABLET (FP) PO SCH (10:08)
[2022-07-14] MEDS: THIAMINE HCL 100 MG TABLET (FP) PO SCH (21:36)
[2022-07-14] MEDS: MELATONIN 5 MG TABLETS PO SCH (21:37)
[2022-07-15] MEDS: GABAPENTIN 300 MG CAPSULE PO SCH ×3 (07:00→21:39)
[2022-07-15] MEDS: LACTULOSE 20 GM/30 ML UDC (FOR ORAL USE ONLY) PO SCH ×3 (07:01→21:40)
[2022-07-15] MEDS: SERTRALINE HCL 50 MG TABLET (FP) PO SCH (10:09)
[2022-07-15] MEDS: PRENATAL VITAMINS W/ FOLIC ACID TABLET (FP) PO SCH (10:09)
[2022-07-15] MEDS: THIAMINE HCL 100 MG TABLET (FP) PO SCH (21:39)
[2022-07-15] MEDS: MELATONIN 5 MG TABLETS PO SCH (21:39)
[2022-07-16] MEDS: GABAPENTIN 300 MG CAPSULE PO SCH ×3 (06:26→21:40)
[2022-07-16] MEDS: LACTULOSE 20 GM/30 ML UDC (FOR ORAL USE ONLY) PO SCH ×3 (06:26→21:39)
[2022-07-16 07:21] VITALS: RESP 18
[2022-07-16] MEDS: SERTRALINE HCL 50 MG TABLET (FP) PO SCH (10:00)
[2022-07-16] MEDS: PRENATAL VITAMINS W/ FOLIC ACID TABLET (FP) PO SCH (10:00)
[2022-07-16] MEDS: MELATONIN 5 MG TABLETS PO SCH (21:40)
[2022-07-16] MEDS: THIAMINE HCL 100 MG TABLET (FP) PO SCH (21:40)
[2022-07-17] MEDS: GABAPENTIN 300 MG CAPSULE PO SCH ×3 (06:04→21:39)
[2022-07-17] MEDS: LACTULOSE 20 GM/30 ML UDC (FOR ORAL USE ONLY) PO SCH ×3 (06:04→21:39)
[2022-07-17] MEDS: SERTRALINE HCL 50 MG TABLET (FP) PO SCH (10:02)
[2022-07-17] MEDS: PRENATAL VITAMINS W/ FOLIC ACID TABLET (FP) PO SCH (10:02)
[2022-07-17] MEDS: MELATONIN 5 MG TABLETS PO SCH (21:39)
[2022-07-17] MEDS: THIAMINE HCL 100 MG TABLET (FP) PO SCH (21:39)
[2022-07-18] MEDS: GABAPENTIN 300 MG CAPSULE PO SCH ×3 (06:20→21:37)
[2022-07-18] MEDS: LACTULOSE 20 GM/30 ML UDC (FOR ORAL USE ONLY) PO SCH ×3 (06:21→21:36)
[2022-07-18] MEDS: PRENATAL VITAMINS W/ FOLIC ACID TABLET (FP) PO SCH (10:03)
[2022-07-18] MEDS: SERTRALINE HCL 50 MG TABLET (FP) PO SCH (10:03)
[2022-07-18] MEDS: MELATONIN 5 MG TABLETS PO SCH (21:36)
[2022-07-18] MEDS: THIAMINE HCL 100 MG TABLET (FP) PO SCH (21:37)
[2022-07-19] MEDS: GABAPENTIN 300 MG CAPSULE PO SCH ×2 (06:58→13:32)
[2022-07-19] MEDS: LACTULOSE 20 GM/30 ML UDC (FOR ORAL USE ONLY) PO SCH ×2 (06:59→13:32)
[2022-07-19 07:03] VITALS: BP 105/72; PULSE 74; TEMP 96
[2022-07-19] MEDS: SERTRALINE HCL 50 MG TABLET (FP) PO SCH (10:00)
[2022-07-19] MEDS: PRENATAL VITAMINS W/ FOLIC ACID TABLET (FP) PO SCH (10:00)
== END 2022-07-19 14:49 | disposition home or self-care (01) | DRG 772 ==
LOC: YASAS 19:11 → Y5N 19:14
PROVIDERS: ADMIT Allergy & Immunology; ATTEND Allergy & Immunology
PROC: HZ42ZZZ Group Counseling for Substance Abuse Treatment, Cognitive-Behavioral (ICD-10-PCS; principal; 2022-06-23)
DX: F10.20 Alcohol dependence, uncomplicated (principal); E87.6 Hypokalemia; L30.9 Dermatitis, unspecified; R79.89 Other specified abnormal findings of blood chemistry; R74.01 Elevation of levels of liver transaminase levels; Z59.00 Homelessness unspecified
CPT/HCPCS: 36415; 80053; 82140; 84132; 84450; 86803

== ENCOUNTER 2023-08-05 01:09 | Inpatient (IN) | payer OTHER ==
[2023-08-05 01:43] VITALS: BMI 33.0
[2023-08-05] MEDS ORDERED: chlordiazePOXIDE HCL 25 MG CAPSULE ONE (02:02)
[2023-08-05] MEDS ORDERED: chlordiazePOXIDE HCL 25 MG CAPSULE PO PRN (02:06)
[2023-08-05] MEDS ORDERED: MAGNESIUM HYDROX 2400MG/30ML ORAL SUSPENSION 30 ML CUP PO PRN (02:06)
[2023-08-05] MEDS ORDERED: BISMUTH SUBSALICYLATE 524 MG/30 ML PO PRN (02:06)
[2023-08-05] MEDS ORDERED: IBUPROFEN 600 MG TABLET (FP) PO PRN (02:06)
[2023-08-05] MEDS ORDERED: NALOXONE HCL 0.4 MG/ML VIAL IM PRN (02:06)
[2023-08-05] MEDS ORDERED: BENZONATATE 200 MG CAPSULE PO PRN (02:06)
[2023-08-05] MEDS ORDERED: BENZOCAINE/MENTHOL (CHLORASEPTIC ) LOZENGE MM PRN (02:06)
[2023-08-05] MEDS ORDERED: guaiFENesin 600 MG TABLET.ER (FP) PO PRN (02:06)
[2023-08-05] MEDS ORDERED: ONDANSETRON *ODT* 4 MG TABLET SL PRN (02:06)
[2023-08-05] MEDS ORDERED: DICYCLOMINE HCL 10 MG CAPSULE PO PRN (02:06)
[2023-08-05] MEDS ORDERED: hydrOXYzine PAMOATE 25 MG CAPSULE (FP) PO PRN (02:06)
[2023-08-05] MEDS ORDERED: POLYETHYLENE GLYCOL (HEALTHYLAX) 3350 17 GM PACKET PO PRN (02:06)
[2023-08-05] MEDS ORDERED: MAG HYDROX/AL HYDROX/SIMETH 30 ML UNIT-DOSE CUP PO PRN (02:06)
[2023-08-05] MEDS ORDERED: NALOXONE HCL (KLOXXADO) 8 MG SPRAY NS PRN (02:06)
[2023-08-05] MEDS ORDERED: IBUPROFEN 400 MG TABLET (FP) PO PRN (02:06)
[2023-08-05] MEDS: chlordiazePOXIDE HCL 25 MG CAPSULE PO ONE (02:10)
[2023-08-05] MEDS: LOPERAMIDE HCL 2 MG CAPSULE PO PRN (02:42)
[2023-08-05] MEDS: chlordiazePOXIDE HCL 25 MG CAPSULE PO SCH (04:45)
[2023-08-05] MEDS: PRENATAL VITAMINS W/ FOLIC ACID TABLET (FP) PO SCH (10:11)
[2023-08-05 12:19] LABS: CHLORIDE 102 mmol/L (98-107); POTASSIUM 3.7 mmol/L (3.5-5.1); SODIUM 139 mmol/L (136-145)
[2023-08-05 12:21] LABS: CALCIUM 8.8 mg/dL (8.5-10.1)
[2023-08-05 12:22] LABS: ALBUMIN 3.5 g/dl (3.4-5.0); ANION GAP 8 mmol/L (4-13); BLOOD UREA NITROGEN 6.7 mg/dL (7-18); CO2 30 mmol/L (21-32); GLUCOSE,RANDOM 82 mg/dL (74-106)
[2023-08-05 12:23] LABS: HEMATOCRIT 42.1 % (35.4-49); HEMOGLOBIN 14.3 GM/dL (11.7-16.9); MCH 30.7 pg (25.7-33.7); MCHC 33.9 g/dl (32.0-35.9); MEAN CELL VOLUME 90.5 fl (80-96); MEAN PLT VOLUME 8.3 fl (7.5-11.1); PLATELET COUNT 263 10^3/uL (134-434); RBC 4.65 M/mm3 (4.00-5.60); RDW 12.8 % (11.9-15.9); WHITE BLOOD COUNT 9.3 K/mm3 (4.0-10.0)
[2023-08-05 12:24] LABS: SGPT/ALT 35 U/L (13-61)
[2023-08-05 12:25] LABS: CREATININE 0.7 mg/dL (0.55-1.3); SGOT/AST 36 U/L (15-37)
[2023-08-05 12:26] LABS: BILIRUBIN,TOTAL 1.3 mg/dL (0.2-1); TOT PROT 6.5 g/dl (6.4-8.2)
[2023-08-05 12:28] LABS: ALK PHOS 59 U/L (45-117)
[2023-08-05] MEDS: ACETAMINOPHEN 325 MG TABLET (FP) PO PRN (22:01)
[2023-08-05] MEDS: MELATONIN 5 MG TABLETS PO SCH (22:02)
[2023-08-05] MEDS: THIAMINE HCL 100 MG TABLET (FP) PO SCH (22:03)
[2023-08-06] MEDS: chlordiazePOXIDE HCL 25 MG CAPSULE PO SCH (05:31)
[2023-08-07] MEDS ORDERED: chlordiazePOXIDE HCL 10 MG CAPSULE PO PRN
[2023-08-07] MEDS: chlordiazePOXIDE HCL 10 MG CAPSULE PO SCH (05:07)
[2023-08-08] MEDS: chlordiazePOXIDE HCL 10 MG CAPSULE PO SCH (05:14)
[2023-08-09] MEDS: chlordiazePOXIDE HCL 10 MG CAPSULE PO ONE (05:46)
[2023-08-09 08:57] VITALS: BP 111/71; PULSE 78; RESP 18; TEMP 97.8
== END 2023-08-09 10:20 | disposition other institution (70) | DRG 775 ==
LOC: YASAS 01:09 → Y6N 02:37 → Y3N 04:28
PROVIDERS: ADMIT Allergy & Immunology; ATTEND Allergy & Immunology
PROC: HZ2ZZZZ Detoxification Services for Substance Abuse Treatment (ICD-10-PCS; principal; 2023-08-05)
DX: F10.230 Alcohol dependence with withdrawal, uncomplicated (principal); F41.9 Anxiety disorder, unspecified; F32.A Depression, unspecified; F42.9 Obsessive-compulsive disorder, unspecified
CPT/HCPCS: 36415; 80053; 80307; 85027; 86780; 93005; 93010

== ENCOUNTER 2023-12-03 10:08 | Inpatient (IN) | payer OTHER ==
[2023-12-03 10:38] VITALS: BMI 30.9
[2023-12-03] MEDS ORDERED: ACETAMINOPHEN 325 MG TABLET (FP) PO PRN (12:09)
[2023-12-03] MEDS ORDERED: MAG HYDROX/AL HYDROX/SIMETH 30 ML UNIT-DOSE CUP PO PRN (12:09)
[2023-12-03] MEDS ORDERED: NALOXONE HCL 0.4 MG/ML VIAL IM PRN (12:09)
[2023-12-03] MEDS ORDERED: IBUPROFEN 400 MG TABLET (FP) PO PRN (12:09)
[2023-12-03] MEDS ORDERED: METHOCARBAMOL 500 MG TABLET PO PRN (12:09)
[2023-12-03] MEDS ORDERED: BENZOCAINE/MENTHOL (CHLORASEPTIC ) LOZENGE MM PRN (12:09)
[2023-12-03] MEDS ORDERED: POLYETHYLENE GLYCOL (HEALTHYLAX) 3350 17 GM PACKET PO PRN (12:09)
[2023-12-03] MEDS ORDERED: BENZONATATE 200 MG CAPSULE PO PRN (12:09)
[2023-12-03] MEDS ORDERED: ONDANSETRON *ODT* 4 MG TABLET SL PRN (12:09)
[2023-12-03] MEDS ORDERED: NALOXONE (NARCAN) HCL 4 MG/0.1 ML SPRAY NS PRN (12:09)
[2023-12-03] MEDS ORDERED: hydrOXYzine PAMOATE 25 MG CAPSULE (FP) PO PRN (12:09)
[2023-12-03] MEDS ORDERED: BISMUTH SUBSALICYLATE 262 MG/15 ML BTL PO PRN (12:09)
[2023-12-03] MEDS ORDERED: IBUPROFEN 600 MG TABLET (FP) PO PRN (12:09)
[2023-12-03] MEDS ORDERED: guaiFENesin 600 MG TABLET.ER (FP) PO PRN (12:09)
[2023-12-03] MEDS ORDERED: DICYCLOMINE HCL 10 MG CAPSULE PO PRN (12:09)
[2023-12-03] MEDS ORDERED: MAGNESIUM HYDROX 2400MG/30ML ORAL SUSPENSION 30 ML CUP PO PRN (12:09)
[2023-12-03] MEDS ORDERED: chlordiazePOXIDE HCL 25 MG CAPSULE PO PRN (12:12)
[2023-12-03] MEDS: PRENATAL VITAMINS W/ FOLIC ACID TABLET (FP) PO SCH (12:21)
[2023-12-03] MEDS: LOPERAMIDE HCL 2 MG CAPSULE PO PRN (17:26)
[2023-12-03] MEDS: chlordiazePOXIDE HCL 25 MG CAPSULE PO SCH (17:26)
[2023-12-03] MEDS: MELATONIN 5 MG TABLETS PO SCH (22:34)
[2023-12-03] MEDS: THIAMINE 100 MG TABLET PO SCH (22:35)
[2023-12-04] MEDS: SERTRALINE HCL 50 MG TABLET (FP) PO SCH (10:05)
[2023-12-04 11:35] LABS: CHLORIDE 101 mmol/L (98-107); POTASSIUM 4.2 mmol/L (3.5-5.1); SODIUM 136 mmol/L (136-145)
[2023-12-04 11:40] LABS: ALBUMIN 3.6 g/dl (3.4-5.0); ANION GAP 6 mmol/L (4-13); CALCIUM 8.8 mg/dL (8.5-10.1); CO2 30 mmol/L (21-32); HEMATOCRIT 39.4 % (35.4-49); HEMOGLOBIN 13.4 GM/dL (11.7-16.9); MCH 31.8 pg (25.7-33.7); MCHC 33.9 g/dl (32.0-35.9); MEAN CELL VOLUME 93.8 fl (80-96); MEAN PLT VOLUME 8.1 fl (7.5-11.1); PLATELET COUNT 422 10^3/uL (134-434); RDW 14.4 % (11.9-15.9); WHITE BLOOD COUNT 4.8 K/mm3 (4.0-10.0)
[2023-12-04 11:41] LABS: GLUCOSE,RANDOM 86 mg/dL (74-106)
[2023-12-04 11:43] LABS: SGOT/AST 60 U/L (15-37); SGPT/ALT 73 U/L (13-61)
[2023-12-04 11:44] LABS: CREATININE 0.8 mg/dL (0.55-1.3)
[2023-12-04 11:45] LABS: BILIRUBIN,TOTAL 0.5 mg/dL (0.2-1); TOT PROT 6.7 g/dl (6.4-8.2)
[2023-12-04 11:46] LABS: ALK PHOS 73 U/L (45-117); BLOOD UREA NITROGEN 2.7 mg/dL (7-18)
[2023-12-04] MEDS: GABAPENTIN 300 MG CAPSULE PO SCH (13:10)
[2023-12-04] MEDS: APIXABAN 5 MG TABLET PO SCH (22:02)
[2023-12-05] MEDS: chlordiazePOXIDE HCL 25 MG CAPSULE PO SCH (05:52)
[2023-12-06] MEDS ORDERED: chlordiazePOXIDE HCL 10 MG CAPSULE PO PRN
[2023-12-06] MEDS: chlordiazePOXIDE HCL 10 MG CAPSULE PO SCH (05:26)
[2023-12-06] MEDS: NICOTINE POLACRILEX 2 MG GUM BUC PRN (12:17)
[2023-12-07] MEDS: chlordiazePOXIDE HCL 10 MG CAPSULE PO SCH (05:52)
[2023-12-08] MEDS: chlordiazePOXIDE HCL 10 MG CAPSULE PO ONE (05:46)
[2023-12-09 09:16] VITALS: BP 114/77; PULSE 77; RESP 18; TEMP 97.1
== END 2023-12-09 11:00 | disposition home or self-care (01) | DRG 775 ==
LOC: YASAS 10:08 → Y6N 12:24
PROVIDERS: ADMIT Allergy & Immunology; ATTEND Surgery
PROC: HZ2ZZZZ Detoxification Services for Substance Abuse Treatment (ICD-10-PCS; principal; 2023-12-03)
DX: F10.230 Alcohol dependence with withdrawal, uncomplicated (principal); F10.24 Alcohol dependence with alcohol-induced mood disorder; F41.9 Anxiety disorder, unspecified; F32.9 Major depressive disorder, single episode, unspecified; F99 Mental disorder, not otherwise specified; F42.9 Obsessive-compulsive disorder, unspecified; M54.59 Other low back pain; G89.29 Other chronic pain; L30.9 Dermatitis, unspecified; R74.01 Elevation of levels of liver transaminase levels; Z79.01 Long term (current) use of anticoagulants; Z86.711 Personal history of pulmonary embolism; Z56.0 Unemployment, unspecified; Z59.00 Homelessness unspecified
CPT/HCPCS: 36415; 80053; 80305; 80307; 84450; 84460; 84520; 85027; 86780; 93005; 93010

== ENCOUNTER 2024-01-16 10:52 | Inpatient (IN) | payer OTHER ==
[2024-01-16 11:17] VITALS: BMI 31.8
[2024-01-16] MEDS ORDERED: hydrOXYzine PAMOATE 25 MG CAPSULE (FP) PO PRN (11:40)
[2024-01-16] MEDS ORDERED: BENZONATATE 200 MG CAPSULE PO PRN (11:40)
[2024-01-16] MEDS ORDERED: ACETAMINOPHEN 325 MG TABLET (FP) PO PRN (11:40)
[2024-01-16] MEDS ORDERED: guaiFENesin 600 MG TABLET.ER (FP) PO PRN (11:40)
[2024-01-16] MEDS ORDERED: MAG HYDROX/AL HYDROX/SIMETH 30 ML UNIT-DOSE CUP PO PRN (11:40)
[2024-01-16] MEDS ORDERED: BENZOCAINE/MENTHOL (CHLORASEPTIC ) LOZENGE MM PRN (11:40)
[2024-01-16] MEDS ORDERED: MAGNESIUM HYDROX 2400MG/30ML ORAL SUSPENSION 30 ML CUP PO PRN (11:40)
[2024-01-16] MEDS ORDERED: ONDANSETRON *ODT* 4 MG TABLET SL PRN (11:40)
[2024-01-16] MEDS ORDERED: POLYETHYLENE GLYCOL (HEALTHYLAX) 3350 17 GM PACKET PO PRN (11:40)
[2024-01-16] MEDS ORDERED: DICYCLOMINE HCL 10 MG CAPSULE PO PRN (11:40)
[2024-01-16] MEDS ORDERED: chlordiazePOXIDE HCL 25 MG CAPSULE ONE (12:33)
[2024-01-16] MEDS: chlordiazePOXIDE HCL 25 MG CAPSULE PO SCH (12:35)
[2024-01-16] MEDS: APIXABAN 2.5 MG TABLET PO SCH (12:42)
[2024-01-16] MEDS: THIAMINE 100 MG TABLET PO SCH (22:30)
[2024-01-16] MEDS: MELATONIN 5 MG TABLETS PO SCH (22:31)
[2024-01-17] MEDS: SERTRALINE HCL 50 MG TABLET (FP) PO SCH (10:11)
[2024-01-17] MEDS: PRENATAL VITAMINS W/ FOLIC ACID TABLET (FP) PO SCH (10:11)
[2024-01-17 10:34] LABS: HEMATOCRIT 43.3 % (35.4-49); HEMOGLOBIN 14.2 GM/dL (11.7-16.9); MCH 29.9 pg (25.7-33.7); MCHC 32.8 g/dl (32.0-35.9); MEAN CELL VOLUME 91.2 fl (80-96); MEAN PLT VOLUME 8.3 fl (7.5-11.1); PLATELET COUNT 251 10^3/uL (134-434); RBC 4.75 M/mm3 (4.00-5.60); RDW 13.7 % (11.9-15.9); WHITE BLOOD COUNT 3.8 K/mm3 (4.0-10.0)
[2024-01-17 10:35] LABS: POTASSIUM 3.7 mmol/L (3.5-5.1)
[2024-01-17 10:59] LABS: CALCIUM 8.9 mg/dL (8.5-10.1)
[2024-01-17 11:00] LABS: ALBUMIN 3.8 g/dl (3.4-5.0); BLOOD UREA NITROGEN 9.6 mg/dL (7-18)
[2024-01-17 11:03] LABS: CREATININE 0.8 mg/dL (0.55-1.3)
[2024-01-17 11:04] LABS: BILIRUBIN,TOTAL 0.9 mg/dL (0.2-1); TOT PROT 6.8 g/dl (6.4-8.2)
[2024-01-17] MEDS: chlordiazePOXIDE HCL 25 MG CAPSULE PO PRN (14:01)
[2024-01-17] MEDS: LOPERAMIDE HCL 2 MG CAPSULE PO PRN (17:37)
[2024-01-17] MEDS: NICOTINE POLACRILEX 2 MG GUM BUC PRN (19:04)
[2024-01-17] MEDS: METHOCARBAMOL 500 MG TABLET PO PRN (22:27)
[2024-01-18] MEDS: chlordiazePOXIDE HCL 25 MG CAPSULE PO SCH (05:16)
[2024-01-19] MEDS ORDERED: chlordiazePOXIDE HCL 10 MG CAPSULE PO PRN
[2024-01-19] MEDS: chlordiazePOXIDE HCL 10 MG CAPSULE PO SCH (05:20)
[2024-01-20] MEDS: chlordiazePOXIDE HCL 10 MG CAPSULE PO SCH (05:50)
[2024-01-21] MEDS: chlordiazePOXIDE HCL 10 MG CAPSULE PO ONE (05:46)
[2024-01-21 12:29] VITALS: BP 132/79; PULSE 66; RESP 18; TEMP 97.6
== END 2024-01-21 12:25 | disposition other institution (70) | DRG 775 ==
LOC: YASAS 10:52 → Y6N 12:32
PROVIDERS: ADMIT Allergy & Immunology; ATTEND Surgery
PROC: HZ2ZZZZ Detoxification Services for Substance Abuse Treatment (ICD-10-PCS; principal; 2024-01-16)
DX: F10.230 Alcohol dependence with withdrawal, uncomplicated (principal); F17.210 Nicotine dependence, cigarettes, uncomplicated; F41.8 Other specified anxiety disorders; F42.9 Obsessive-compulsive disorder, unspecified; Z86.711 Personal history of pulmonary embolism; Z79.01 Long term (current) use of anticoagulants; Z56.0 Unemployment, unspecified; Z59.00 Homelessness unspecified
CPT/HCPCS: 36415; 80053; 80305; 80307; 85027; 87811

== ENCOUNTER 2024-01-21 12:49 | Inpatient (IN) | payer OTHER ==
[2024-01-21] MEDS ORDERED: MAG HYDROX/AL HYDROX/SIMETH 30 ML UNIT-DOSE CUP PO PRN (15:15)
[2024-01-21] MEDS ORDERED: ACETAMINOPHEN 325 MG TABLET (FP) PO PRN (15:15)
[2024-01-21] MEDS ORDERED: guaiFENesin 600 MG TABLET.ER (FP) PO PRN (15:15)
[2024-01-21] MEDS ORDERED: NALOXONE (NARCAN) HCL 4 MG/0.1 ML SPRAY NS PRN (15:15)
[2024-01-21] MEDS ORDERED: MAGNESIUM HYDROX 2400MG/30ML ORAL SUSPENSION 30 ML CUP PO PRN (15:15)
[2024-01-21] MEDS ORDERED: BENZONATATE 200 MG CAPSULE PO PRN (15:15)
[2024-01-21] MEDS ORDERED: NALOXONE HCL 0.4 MG/ML VIAL IVPUSH PRN (15:15)
[2024-01-21] MEDS ORDERED: IBUPROFEN 400 MG TABLET (FP) PO PRN (15:15)
[2024-01-21] MEDS ORDERED: IBUPROFEN 600 MG TABLET (FP) PO PRN (15:15)
[2024-01-21] MEDS ORDERED: hydrOXYzine PAMOATE 25 MG CAPSULE (FP) PO PRN (15:15)
[2024-01-21] MEDS ORDERED: BENZOCAINE/MENTHOL (CHLORASEPTIC ) LOZENGE MM PRN (15:15)
[2024-01-21] MEDS ORDERED: METHOCARBAMOL 500 MG TABLET PO PRN (15:15)
[2024-01-21] MEDS ORDERED: LOPERAMIDE HCL 2 MG CAPSULE PO PRN (15:15)
[2024-01-21] MEDS ORDERED: POLYETHYLENE GLYCOL (HEALTHYLAX) 3350 17 GM PACKET PO PRN (15:45)
[2024-01-21] MEDS: NICOTINE POLACRILEX 4 MG GUM BUC PRN (15:51)
[2024-01-21] MEDS: THIAMINE 100 MG TABLET PO SCH (21:39)
[2024-01-21] MEDS: APIXABAN 2.5 MG TABLET PO SCH (21:39)
[2024-01-21] MEDS: MELATONIN 5 MG TABLETS PO SCH (21:39)
[2024-01-21] MEDS: GABAPENTIN 300 MG CAPSULE PO SCH (21:39)
[2024-01-22] MEDS: SERTRALINE HCL 50 MG TABLET (FP) PO SCH (10:00)
[2024-01-22] MEDS: PRENATAL VITAMINS W/ FOLIC ACID TABLET (FP) PO SCH (10:00)
[2024-01-23] MEDS: NICOTINE POLACRILEX 4 MG LOZENGE BC PRN (09:59)
[2024-01-30] MEDS ORDERED: NALOXONE (NYS OPIOID OVERDOSE PROGRAM) 4 MG/0.1 ML SPRAY NS PRN (14:54)
[2024-01-30] MEDS: NALTREXONE HCL 50 MG TABLET PO ONE (15:00)
[2024-01-31] MEDS: NALTREXONE HCL 50 MG TABLET PO SCH (10:13)
[2024-01-31] MEDS: SERTRALINE HCL 50 MG TABLET (FP) PO SCH (10:13)
[2024-02-15] MEDS ORDERED: NALTREXONE MICROSPHERES (VIVITROL) 380 MG DISP.SYRIN IM ONE (10:00)
[2024-02-16 06:48] VITALS: RESP 16; TEMP 97.4
[2024-02-16 09:23] VITALS: BP 136/65; PULSE 95
== END 2024-02-16 10:35 | disposition home or self-care (01) | DRG 772 ==
LOC: YASAS 12:49 → Y5N 12:51
PROVIDERS: ADMIT Psychiatry & Neurology Pain Medicine; ATTEND Psychiatry & Neurology Pain Medicine
PROC: HZ42ZZZ Group Counseling for Substance Abuse Treatment, Cognitive-Behavioral (ICD-10-PCS; principal; 2024-01-21)
DX: F10.20 Alcohol dependence, uncomplicated (principal); F41.9 Anxiety disorder, unspecified; F32.A Depression, unspecified; F42.9 Obsessive-compulsive disorder, unspecified; M54.50 Low back pain, unspecified; G89.29 Other chronic pain; Z86.711 Personal history of pulmonary embolism; Z79.01 Long term (current) use of anticoagulants; Z59.00 Homelessness unspecified; Z88.8 Allergy status to other drugs, medicaments and biological substances
CPT/HCPCS: 82140

== ENCOUNTER 2024-03-01 19:59 | Inpatient (IN) | payer OTHER ==
[2024-03-01 20:29] VITALS: BMI 29.4
[2024-03-01] MEDS ORDERED: MAG HYDROX/AL HYDROX/SIMETH 30 ML UNIT-DOSE CUP PO PRN (21:27)
[2024-03-01] MEDS ORDERED: ACETAMINOPHEN 325 MG TABLET (FP) PO PRN (21:27)
[2024-03-01] MEDS ORDERED: MAGNESIUM HYDROX 2400MG/30ML ORAL SUSPENSION 30 ML CUP PO PRN (21:27)
[2024-03-01] MEDS ORDERED: DICYCLOMINE HCL 10 MG CAPSULE PO PRN (21:27)
[2024-03-01] MEDS ORDERED: IBUPROFEN 400 MG TABLET (FP) PO PRN (21:27)
[2024-03-01] MEDS ORDERED: BENZONATATE 200 MG CAPSULE PO PRN (21:27)
[2024-03-01] MEDS ORDERED: POLYETHYLENE GLYCOL (HEALTHYLAX) 3350 17 GM PACKET PO PRN (21:27)
[2024-03-01] MEDS ORDERED: METHOCARBAMOL 500 MG TABLET PO PRN (21:27)
[2024-03-01] MEDS ORDERED: BISMUTH SUBSALICYLATE 524 MG/30 ML PO PRN (21:27)
[2024-03-01] MEDS ORDERED: BENZOCAINE/MENTHOL (CHLORASEPTIC ) LOZENGE MM PRN (21:27)
[2024-03-01] MEDS ORDERED: hydrOXYzine PAMOATE 25 MG CAPSULE (FP) PO PRN (21:27)
[2024-03-01] MEDS ORDERED: ONDANSETRON *ODT* 4 MG TABLET SL PRN (21:27)
[2024-03-01] MEDS ORDERED: guaiFENesin 600 MG TABLET.ER (FP) PO PRN (21:27)
[2024-03-01] MEDS ORDERED: IBUPROFEN 600 MG TABLET (FP) PO PRN (21:27)
[2024-03-01] MEDS ORDERED: NALOXONE (NARCAN) HCL 4 MG/0.1 ML SPRAY NS PRN (21:27)
[2024-03-01] MEDS ORDERED: chlordiazePOXIDE HCL 25 MG CAPSULE PO PRN (21:30)
[2024-03-01] MEDS ORDERED: chlordiazePOXIDE HCL 25 MG CAPSULE ONE (22:56)
[2024-03-01] MEDS ORDERED: MELATONIN 5 MG TABLETS ONE (22:56)
[2024-03-01] MEDS: MELATONIN 5 MG TABLETS PO SCH (22:59)
[2024-03-01] MEDS: chlordiazePOXIDE HCL 25 MG CAPSULE PO SCH (22:59)
[2024-03-01] MEDS: THIAMINE 100 MG TABLET PO SCH (22:59)
[2024-03-02] MEDS: PRENATAL VITAMINS W/ FOLIC ACID TABLET (FP) PO SCH (10:50)
[2024-03-02] MEDS: LOPERAMIDE HCL 2 MG CAPSULE PO PRN (11:19)
[2024-03-02 15:03] LABS: HEMATOCRIT 42.8 % (35.4-49); HEMOGLOBIN 14.1 GM/dL (11.7-16.9); MCH 30.1 pg (25.7-33.7); MEAN CELL VOLUME 91.3 fl (80-96); MEAN PLT VOLUME 8.8 fl (7.5-11.1); PLATELET COUNT 115 10^3/uL (134-434); RBC 4.69 M/mm3 (4.00-5.60); RDW 14.8 % (11.9-15.9); WHITE BLOOD COUNT 4.8 K/mm3 (4.0-10.0)
[2024-03-02 15:11] LABS: CHLORIDE 97 mmol/L (98-107); POTASSIUM 3.5 mmol/L (3.5-5.1); SODIUM 134 mmol/L (136-145)
[2024-03-02 15:13] LABS: CALCIUM 8.5 mg/dL (8.5-10.1)
[2024-03-02 15:14] LABS: ALBUMIN 3.7 g/dl (3.4-5.0); ANION GAP 7 mmol/L (4-13); BLOOD UREA NITROGEN 6.4 mg/dL (7-18); CO2 30 mmol/L (21-32); GLUCOSE,RANDOM 91 mg/dL (74-106)
[2024-03-02 15:17] LABS: CREATININE 0.8 mg/dL (0.55-1.3); SGOT/AST 115 U/L (15-37); SGPT/ALT 75 U/L (13-61)
[2024-03-02 15:18] LABS: ALK PHOS 91 U/L (45-117)
[2024-03-02 15:19] LABS: BILIRUBIN,TOTAL 2.2 mg/dL (0.2-1); TOT PROT 6.7 g/dl (6.4-8.2)
[2024-03-02] MEDS: SERTRALINE HCL 50 MG TABLET (FP) PO SCH (15:19)
[2024-03-02] MEDS: APIXABAN 2.5 MG TABLET PO SCH (22:28)
[2024-03-03] MEDS: chlordiazePOXIDE HCL 25 MG CAPSULE PO SCH (05:46)
[2024-03-03 12:38] LABS: POTASSIUM 3.5 mmol/L (3.5-5.1)
[2024-03-03 12:49] LABS: ALBUMIN 4.1 g/dl (3.4-5.0); BLOOD UREA NITROGEN 10.2 mg/dL (7-18); CALCIUM 9.1 mg/dL (8.5-10.1)
[2024-03-03 12:53] LABS: BILIRUBIN,TOTAL 1.1 mg/dL (0.2-1); TOT PROT 7.2 g/dl (6.4-8.2)
[2024-03-03] MEDS: GABAPENTIN 300 MG CAPSULE PO SCH (22:33)
[2024-03-04] MEDS ORDERED: chlordiazePOXIDE HCL 10 MG CAPSULE PO PRN
[2024-03-04] MEDS: chlordiazePOXIDE HCL 10 MG CAPSULE PO SCH (05:33)
[2024-03-04] MEDS: LACTULOSE 20 GM/30 ML UDC (FOR ORAL USE ONLY) PO SCH (13:35)
[2024-03-05] MEDS: chlordiazePOXIDE HCL 10 MG CAPSULE PO SCH (05:18)
[2024-03-06] MEDS: chlordiazePOXIDE HCL 10 MG CAPSULE PO ONE (05:50)
[2024-03-06 06:58] VITALS: RESP 16
[2024-03-06] MEDS: NALOXONE (NYS OPIOID OVERDOSE PROGRAM) 4 MG/0.1 ML SPRAY NS PRN (08:59)
[2024-03-06 09:23] VITALS: BP 122/81; PULSE 82; TEMP 97.5
== END 2024-03-06 09:30 | disposition other institution (70) | DRG 774 ==
LOC: YASAS 19:59 → Y6N 22:48
PROVIDERS: ADMIT Allergy & Immunology; ATTEND Surgery
PROC: HZ2ZZZZ Detoxification Services for Substance Abuse Treatment (ICD-10-PCS; principal; 2024-03-01)
DX: F10.230 Alcohol dependence with withdrawal, uncomplicated (principal); F14.20 Cocaine dependence, uncomplicated; F10.282 Alcohol dependence with alcohol-induced sleep disorder; F10.24 Alcohol dependence with alcohol-induced mood disorder; F32.9 Major depressive disorder, single episode, unspecified; F41.9 Anxiety disorder, unspecified; F42.9 Obsessive-compulsive disorder, unspecified; Z86.711 Personal history of pulmonary embolism; Z79.01 Long term (current) use of anticoagulants; Z88.8 Allergy status to other drugs, medicaments and biological substances; Z59.00 Homelessness unspecified
CPT/HCPCS: 36415; 80053; 80305; 80307; 82140; 85027; 86780; 93005; 93010

== ENCOUNTER 2024-06-14 23:43 | Inpatient (IN) | payer OTHER ==
[2024-06-14 23:56] VITALS: BMI 30.1
[2024-06-15] MEDS ORDERED: hydrOXYzine PAMOATE 25 MG CAPSULE (FP) PO PRN (00:45)
[2024-06-15] MEDS ORDERED: ONDANSETRON *ODT* 4 MG TABLET SL PRN (00:45)
[2024-06-15] MEDS ORDERED: BENZOCAINE/MENTHOL (CHLORASEPTIC ) LOZENGE MM PRN (00:45)
[2024-06-15] MEDS ORDERED: DICYCLOMINE HCL 10 MG CAPSULE PO PRN (00:45)
[2024-06-15] MEDS ORDERED: METHOCARBAMOL 500 MG TABLET PO PRN (00:45)
[2024-06-15] MEDS ORDERED: IBUPROFEN 400 MG TABLET (FP) PO PRN (00:45)
[2024-06-15] MEDS ORDERED: guaiFENesin 600 MG TABLET.ER (FP) PO PRN (00:45)
[2024-06-15] MEDS ORDERED: ACETAMINOPHEN 325 MG TABLET (FP) PO PRN (00:45)
[2024-06-15] MEDS ORDERED: NALOXONE (NARCAN) HCL 4 MG/0.1 ML SPRAY NS PRN (00:45)
[2024-06-15] MEDS ORDERED: IBUPROFEN 600 MG TABLET (FP) PO PRN (00:45)
[2024-06-15] MEDS ORDERED: MAGNESIUM HYDROX 2400MG/30ML ORAL SUSPENSION 30 ML CUP PO PRN (00:45)
[2024-06-15] MEDS ORDERED: POLYETHYLENE GLYCOL (HEALTHYLAX) 3350 17 GM PACKET PO PRN (00:45)
[2024-06-15] MEDS ORDERED: BENZONATATE 200 MG CAPSULE PO PRN (00:45)
[2024-06-15] MEDS ORDERED: BISMUTH SUBSALICYLATE 524 MG/30 ML PO PRN (00:45)
[2024-06-15] MEDS: chlordiazePOXIDE HCL 25 MG CAPSULE PO PRN (01:10)
[2024-06-15] MEDS: chlordiazePOXIDE HCL 25 MG CAPSULE PO SCH (05:42)
[2024-06-15] MEDS: PRENATAL VITAMINS W/ FOLIC ACID TABLET (FP) PO SCH (10:03)
[2024-06-15] MEDS: LOPERAMIDE HCL 2 MG CAPSULE PO PRN (12:58)
[2024-06-15] MEDS: MELATONIN 5 MG TABLETS PO SCH (22:05)
[2024-06-15] MEDS: THIAMINE 100 MG TABLET PO SCH (22:05)
[2024-06-16] MEDS: chlordiazePOXIDE HCL 25 MG CAPSULE PO SCH (05:18)
[2024-06-16 11:18] LABS: HEMATOCRIT 40.2 % (35.4-49); HEMOGLOBIN 13.3 GM/dL (11.7-16.9); MCH 31.1 pg (25.7-33.7); MCHC 33.2 g/dl (32.0-35.9); MEAN CELL VOLUME 93.7 fl (80-96); MEAN PLT VOLUME 9.1 fl (7.5-11.1); PLATELET COUNT 175 10^3/uL (134-434); RBC 4.29 M/mm3 (4.00-5.60); RDW 13.2 % (11.9-15.9)
[2024-06-16 11:19] LABS: ALBUMIN 3.5 g/dl (3.4-5.0); BLOOD UREA NITROGEN 6.5 mg/dL (7-18); CALCIUM 8.3 mg/dL (8.5-10.1)
[2024-06-16 11:23] LABS: CREATININE 0.8 mg/dL (0.55-1.3)
[2024-06-16 11:25] LABS: BILIRUBIN,TOTAL 0.7 mg/dL (0.2-1); TOT PROT 6.4 g/dl (6.4-8.2)
[2024-06-16] MEDS: SODIUM POLYSTYRENE SULFONATE 15 GM/60 ML BOTTLE PO ONE (11:55)
[2024-06-16] MEDS: MAG HYDROX/AL HYDROX/SIMETH 30 ML UNIT-DOSE CUP PO PRN (22:16)
[2024-06-17] MEDS ORDERED: chlordiazePOXIDE HCL 10 MG CAPSULE PO PRN
[2024-06-17] MEDS: chlordiazePOXIDE HCL 10 MG CAPSULE PO SCH (05:19)
[2024-06-18] MEDS: chlordiazePOXIDE HCL 10 MG CAPSULE PO SCH (05:36)
[2024-06-19] MEDS: chlordiazePOXIDE HCL 10 MG CAPSULE PO ONE (05:24)
[2024-06-19 09:06] VITALS: BP 150/83; PULSE 96; RESP 19; TEMP 96.9
== END 2024-06-19 09:19 | disposition home or self-care (01) | DRG 775 ==
LOC: YASAS 23:43 → Y3N 06-15 01:49
PROVIDERS: ADMIT Allergy & Immunology; ATTEND Allergy & Immunology
PROC: HZ2ZZZZ Detoxification Services for Substance Abuse Treatment (ICD-10-PCS; principal; 2024-06-15)
DX: F10.230 Alcohol dependence with withdrawal, uncomplicated (principal); F41.9 Anxiety disorder, unspecified; F32.A Depression, unspecified; F42.9 Obsessive-compulsive disorder, unspecified; E87.5 Hyperkalemia; M54.50 Low back pain, unspecified; G89.29 Other chronic pain; Z86.718 Personal history of other venous thrombosis and embolism; Z86.711 Personal history of pulmonary embolism; Z88.8 Allergy status to other drugs, medicaments and biological substances
CPT/HCPCS: 36415; 80053; 80305; 80307; 84132; 85027; 86780; 93005; 93010